=== PATIENT | male | born 1955 | race Caucasian/White ===

== ENCOUNTER 2021-03-03 20:11 | Inpatient (IN) | payer BC, MEDICARE ==
--- NOTE | 2021-03-03 20:54 | ED ---
General Adult HPI - General Chief complaint: Chest Pain Stated complaint: High Blood Pressure Time Seen by Provider: 03/03/21 20:26 Source: patient, RN notes reviewed, old records reviewed Mode of arrival: wheelchair Limitations: no limitations - History of Present Illness Initial comments: 66-year-old presenting from the primary care office with multiple ongoing issues. Patient has had chest pain difficulty breathing. Previously diagnosed with coronary artery disease and hypertension not currently taking any medications. He had not seen his primary care physician in about 5 years. Blood pressure was found to be significantly elevated. There was complaints of intermittent chest pain over the past one month as well as cough and dyspnea. Patient is a current smoker. Denies fever. Denies associated diaphoresis or vomiting. Reports intermittent bilateral lower extremity swelling. - Related Data Home Medications Medication Instructions Recorded Confirmed No Known Home Medications 03/03/21 03/03/21 Allergies Allergy/AdvReac Type Severity Reaction Status Date / Time codeine AdvReac anxiety Verified 03/03/21 20:41 Review of Systems ROS Statement: Those systems with pertinent positive or pertinent negative responses have been documented in the HPI. ROS Other: All systems not noted in ROS Statement are negative. Past Medical History Past Medical History: Coronary Artery Disease (CAD), COPD, Hypertension Additional Past Medical History / Comment(s): diverticulitis History of Any Multi-Drug Resistant Organisms: None Reported Past Surgical History: Bowel Resection Additional Past Surgical History / Comment(s): kidney stone removal, neck surgery, sinus surgery Past Anesthesia/Blood Transfusion Reactions: No Reported Reaction Past Psychological History: No Psychological Hx Reported Smoking Status: Current every day smoker Past Alcohol Use History: None Reported Past Drug Use History: None Reported General Exam Limitations: no limitations General appearance: alert, in no apparent distress Head exam: Present: atraumatic, normocephalic Eye exam: Present: normal appearance, PERRL ENT exam: Present: normal exam Neck exam: Present: normal inspection. Absent: tenderness, meningismus Respiratory exam: Present: wheezes, decreased breath sounds. Absent: respiratory distress Cardiovascular Exam: Present: regular rate, normal rhythm GI/Abdominal exam: Present: soft. Absent: distended, tenderness, guarding Extremities exam: Present: normal capillary refill, pedal edema Back exam: Present: normal inspection, full ROM Neurological exam: Present: alert, oriented X3, CN II-XII intact. Absent: motor sensory deficit Psychiatric exam: Present: normal affect, normal mood Skin exam: Present: warm, dry, intact. Absent: cyanosis, diaphoretic Course Vital Signs 03/03/21 03/03/21 03/03/21 20:13 20:57 22:15 Temperature 97.9 F Pulse Rate 101 H 81 Respiratory 20 16 Rate Blood Pressure 207/130 195/106 O2 Sat by Pulse 94 L 91 L 95 Oximetry EKG Findings - EKG Comments: EKG Findings:: EKG: Possible ectopic atrial rhythm rate of 97, OR interval 160, QRS duration 80 ST segment elevation, T-wave inversion in the lateral precordial leads. Medical Decision Making - Medical Decision Making 58-year-old male sent from primary care forchest pain, hypertension, elevated h eart rate. Patient is a current smoker, he is bronchospastic cough, wheezing, decreased air entry bilaterally. I do suspect a component of COPD. He has intermittent chest pain and is quite hypertensive upon arrival. Also he is tachycardic. He has a normal CBC, normal CMP, negative troponin. CT angiography shows emphysema with no pulmonary embolism. case discussed with Dr. Butler who will admit. Cardiology placed on consult. - Lab Data Result diagrams: 03/03/21 20:35 03/03/21 20:35 Lab Results 03/03/21 03/03/21 03/03/21 Range/Units 20:35 20:35 20:35 WBC 9.3 (3.8-10.6) k/uL RBC 5.57 (4.30-5.90) m/uL Hgb 17.3 (13.0-17.5) gm/dL Hct 50.8 (39.0-53.0) % MCV 91.2 (80.0-100.0) fL MCH 31.0 (25.0-35.0) pg MCHC 34.0 (31.0-37.0) g/dL RDW 12.5 (11.5-15.5) % Plt Count 179 (150-450) k/uL MPV 7.9 Neutrophils % 72 % Lymphocytes % 16 % Monocytes % 7 % Eosinophils % 2 % Basophils % 1 % Neutrophils # 6.7 (1.3-7.7) k/uL Lymphocytes # 1.5 (1.0-4.8) k/uL Monocytes # 0.7 (0-1.0) k/uL Eosinophils # 0.2 (0-0.7) k/uL Basophils # 0.1 (0-0.2) k/uL PT 10.2 (9.0-12.0) sec INR 0.9 (<1.2) APTT 25.2 (22.0-30.0) sec Sodium 142 (137-145) mmol/L Potassium 3.8 (3.5-5.1) mmol/L Chloride 100 (98-107) mmol/L Carbon Dioxide 32 H (22-30) mmol/L Anion Gap 10 mmol/L BUN 17 (9-20) mg/dL Creatinine 1.24 (0.66-1.25) mg/dL Est GFR (CKD-EPI)AfAm 69 (>60 ml/min/1.73 sqM) Est GFR (CKD-EPI)NonAf 60 (>60 ml/min/1.73 sqM) Glucose 130 H (74-99) mg/dL Calcium 9.8 (8.4-10.2) mg/dL Magnesium 1.7 (1.6-2.3) mg/dL Total Bilirubin 0.3 (0.2-1.3) mg/dL AST 18 (17-59) U/L ALT 15 (4-49) U/L Alkaline Phosphatase 77 (38-126) U/L Troponin I (0.000-0.034) ng/mL NT-Pro-B Natriuret Pep pg/mL Total Protein 7.1 (6.3-8.2) g/dL Albumin 4.3 (3.5-5.0) g/dL Lipase 134 (23-300) U/L 03/03/21 03/03/21 Range/Units 20:35 20:36 WBC (3.8-10.6) k/uL RBC (4.30-5.90) m/uL Hgb (13.0-17.5) gm/dL Hct (39.0-53.0) % MCV (80.0-100.0) fL MCH (25.0-35.0) pg MCHC (31.0-37.0) g/dL RDW (11.5-15.5) % Plt Count (150-450) k/uL MPV Neutrophils % % Lymphocytes % % Monocytes % % Eosinophils % % Basophils % % Neutrophils # (1.3-7.7) k/uL Lymphocytes # (1.0-4.8) k/uL Monocytes # (0-1.0) k/uL Eosinophils # (0-0.7) k/uL Basophils # (0-0.2) k/uL PT (9.0-12.0) sec INR (<1.2) APTT (22.0-30.0) sec Sodium (137-145) mmol/L Potassium (3.5-5.1) mmol/L Chloride (98-107) mmol/L Carbon Dioxide (22-30) mmol/L Anion Gap mmol/L BUN (9-20) mg/dL Creatinine (0.66-1.25) mg/dL Est GFR (CKD-EPI)AfAm (>60 ml/min/1.73 sqM) Est GFR (CKD-EPI)NonAf (>60 ml/min/1.73 sqM) Glucose (74-99) mg/dL Calcium (8.4-10.2) mg/dL Magnesium (1.6-2.3) mg/dL Total Bilirubin (0.2-1.3) mg/dL AST (17-59) U/L ALT (4-49) U/L Alkaline Phosphatase (38-126) U/L Troponin I <0.012 (0.000-0.034) ng/mL NT-Pro-B Natriuret Pep 397 pg/mL Total Protein (6.3-8.2) g/dL Albumin (3.5-5.0) g/dL Lipase (23-300) U/L Disposition Clinical Impression: Chest pain, Acute exacerbation of chronic obstructive airways disease, Hypertension Disposition: ADMITTED IP TO THIS HOSP Condition: Stable Is patient prescribed a controlled substance at d/c from ED?: No Referrals: Shayne Butts MD [Primary Care Provider] - 1-2 days Decision to Admit Reason: Admit from EC Decision Date: 03/03/21 Decision Time: 22:25
[2021-03-03 20:56] LABS: Basophils # (A) 0.1 k/uL (0-0.2); Basophils % (A) 1 %; Eosinophils # (A) 0.2 k/uL (0-0.7); Eosinophils % (A) 2 %; HCT 50.8 % (39.0-53.0); HGB 17.3 gm/dL (13.0-17.5); Lymphocytes # (A) 1.5 k/uL (1.0-4.8); Lymphocytes % (A) 16 %; MCV 91.2 fL (80.0-100.0); Mean Platelet Volume 7.9; Monocytes # (A) 0.7 k/uL (0-1.0); Monocytes % (A) 7 %; Neutrophils # (A) 6.7 k/uL (1.3-7.7); Neutrophils % (A) 72 %; Platelet Count 179 k/uL (150-450); RBC 5.57 m/uL (4.30-5.90); RDW 12.5 % (11.5-15.5); WBC 9.3 k/uL (3.8-10.6)
[2021-03-03 21:09] LABS: INR 0.9 (<1.2); Partial Thromboplastin Time 25.2 sec (22.0-30.0); Prothrombin Time 10.2 sec (9.0-12.0)
[2021-03-03 21:15] LABS: Albumin 4.3 g/dL (3.5-5.0); Calcium 9.8 mg/dL (8.4-10.2); Magnesium 1.7 mg/dL (1.6-2.3); Potassium 3.8 mmol/L (3.5-5.1); Total Bilirubin 0.3 mg/dL (0.2-1.3); Total Protein 7.1 g/dL (6.3-8.2)
[2021-03-03] MEDS ORDERED: ASPIRIN 325 MG TAB PO STA (22:03)
[2021-03-03] MEDS ORDERED: ACETAMINOPHEN TAB 325 MG TAB PO PRN (22:21)
[2021-03-03] MEDS ORDERED: NALOXONE 0.4 MG/ML 1 ML VIAL IV PRN (22:21)
--- NOTE | 2021-03-03 22:21 | CT ---
EXAMINATION TYPE: CT angio chest DATE OF EXAM: 03/03/2021 COMPARISON: HISTORY: Chest pain with difficulty breathing. CT DLP: 379.3 mGycm Automated exposure control for dose reduction was used. CONTRAST: Performed with IV Contrast, patient injected with 80 mL of Isovue 370. There are 3-D post processed images. The lungs are clear of infiltrate. There is no pleural effusion or pneumothorax. There are mild emphy sematous changes in the lungs. There is no pleural effusion. There is no pericardial effusion. Heart size is normal. There is no mediastinal adenopathy. There are no hilar masses. Thoracic aorta is atheromatous. There is no aneurysm or dissection. There is no evidence of filling defect in the pulmonary arteries. Ascen ding aorta measures 3.7 cm. There is some spurring in the thoracic spine. Sternum is intact. The ribs appear intact. IMPRESSION: No evidence of pulmonary embolism. There is pulmonary mild emphysema.
[2021-03-03] MEDS ORDERED: predniSONE 50 MG TAB PO STA (22:23)
[2021-03-03] MEDS ORDERED: IPRATROPIUM-ALBUTEROL 3 ML NEB INHALATION STA (22:24)
[2021-03-03] MEDS ORDERED: ALBUTEROL NEBULIZED 2.5 MG/3 ML INHALATION STA (22:24)
[2021-03-03] MEDS ORDERED: amLODIPine 5 MG TAB PO STA (22:24)
[2021-03-03] MEDS ORDERED: NICOTINE 21MG/24HR PATCH TRANSDERM STA (22:42)
[2021-03-04] MEDS ORDERED: cloNIDine HCL 0.2 MG TAB PO STA (00:08)
[2021-03-04] MEDS ORDERED: cloNIDine HCL 0.2 MG TAB PO PRN (00:40)
[2021-03-04] MEDS ORDERED: IPRATROPIUM-ALBUTEROL 3 ML NEB INHALATION PRN (00:40)
--- NOTE | 2021-03-04 01:48 | P.HPIM ---
History of Present Illness H&P Date: 03/03/21 Chief Complaint: Elevated blood pressure 66-year-old male with history of hypertension, COPD Patient has been lost to follow-up with his PCP for the past 6 years however recently over the past year or so he's been noticing exercise intolerance and what he described as anginal chest pain if he becomes active. He was he's been spending most of his time in bed laying down doing nothing. However he notes that his health been deteriorating he admits to smoking a lot but denies any alcohol drinking or drug abuse. He's been having some chest discomfort and noticed that she's been wheezing for which she decided to schedule doctor appointment for follow-up At his doctor's office today he was found to have elevated blood pressure he described anginal chest pain with activities and he was also found to be short of breath with wheezing for which his doctor recommended that he goes to the hospital for evaluation Currently patient laying comfortable in bed denies any nausea vomiting denies any headache denies any changes in his vision or hearing denies any focal neuro deficits. He denies any GI bleeding however he does report that 6 months ago he had one episode of GI bleeding. He also admits to history of diverticulitis status post partial colectomy he claims that he never had abnormal colonoscopy in the past suggestive of cancer. Patient reports some chest discomfort at this time rated as 2 out of 10 in severity. Initial workup in the ED CTA of the chest showed no acute PE, did show some emphysema. EKG no acute ST changes however was suspicious due to P-wave inversion in lead 1 and aVR and in lead V1 and V2, initial blood work overall unremarkable Review of Systems Pertinent positives as noted in HPI. All other systems were reviewed and are negative Past Medical History Past Medical History: Coronary Artery Disease (CAD), COPD, Hypertension Additional Past Medical History / Comment(s): diverticulitis History of Any Multi-Drug Resistant Organisms: None Reported Past Surgical History: Bowel Resection Additional Past Surgical History / Comment(s): kidney stone removal, neck surgery, sinus surgery Past Anesthesia/Blood Transfusion Reactions: No Reported Reaction Past Psychological History: No Psychological Hx Reported Smoking Status: Current every day smoker Past Alcohol Use History: None Reported Past Drug Use History: None Reported - Past Family History Family Family Medical History: No Reported History Medications and Allergies Home Medications Medication Instructions Recorded Confirmed Type No Known Home Medications 03/03/21 03/03/21 History Allergies Allergy/AdvReac Type Severity Reaction Status Date / Time codeine AdvReac anxiety Verified 03/03/21 20:41 Physical Exam Vitals: Vital Signs Temp Pulse Resp BP Pulse Ox 03/03/21 22:15 81 16 195/106 95 03/03/21 20:57 91 L 03/03/21 20:13 97.9 F 101 H 20 207/130 94 L Intake and Output 03/03/21 03/03/21 03/04/21 14:59 22:59 06:59 Other: Weight 83.007 kg Constitutional: No acute distress, conversant, pleasant Eyes: Anicteric sclerae, moist conjunctiva, Pupils equal round reactive to light ENMT: NC/AT Oropharynx clear, no erythema, or exudates Neck: Supple, FROM, no masses, or JVD No carotid bruits No thyromegaly Lungs: Prolonged expiratory phase with wheezing Clear to percussion Normal respiratory effort, no accessory muscle use Cardiovascular: Heart regular in rate and rhythm, No murmurs, gallops, or rubs No peripheral edema Abdominal: Soft Nontender, no guarding, rebound or rigidity Abdomen moving with respiration Normoactive bowel sounds No hepatomegaly, No splenomegaly No palpable mass No abdominal wall hernia noted Skin: Normal temperature, tone, texture, turgor No induration No subcutaneous nodules No rash, lesions No ulcers Extremities: No digital cyanosis No clubbing Pedal pulses intact and symmetrical Radial pulses intact and symmetrical No calf tenderness Psychiatric: Alert and oriented to person, place and time Appropriate affect fair judgement Neuro Muscles Strength 5/5 in all 4 extremities Sensation to light touch grossly present throughout Cranial nerves II-XII grossly intact No focal sensory deficits Lymphatics: no palpable cervical or supraclavicular , or inguinal lymph nodes Results CBC & Chem 7: 03/03/21 20:35 03/03/21 20:35 Labs: Abnormal Lab Results - Last 24 Hours (Table) 03/03/21 Range/Units 20:35 Carbon Dioxide 32 H (22-30) mmol/L Glucose 130 H (74-99) mg/dL Assessment and Plan Assessment: Hypertensive malignant Exertional dyspnea Atypical chest pain COPD with acute exacerbation secondary to smoking Tobacco smoking Plan Trend troponins CTA of the chest reviewed EKG reviewed Chest x-ray reviewed Blood work reviewed Trend troponins Cardiology consult Monitor vital signs Cardiac monitoring Aspirin, nitro Check lipid profile Check A1c Check TSH Check echocardiogram Age and started on Norvasc and hydrochlorothiazide Clonidine when necessary for systolic blood pressure more than 180 Goal blood pressure for the coming 24 hours is below 180 systolic DuoNeb's when necessary Symbicort twice a day Prednisone by mouth daily Nicotine replacement therapy CODE STATUS: Full code DVT prophylaxis: Heparin subcu 3 times a day Discussed with: Patient, ER, RN Anticipated length of stay more than [address]: Home A total of 70 minutes was spent on the care of this complex patient more than 50% of the time was spent in counseling and care coordination.
[2021-03-04] MEDS: SYMBICORT 160-4.5 MCG INHALER INHALATION SCH ×2 (08:41→20:02)
[2021-03-04 08:53] LABS: Basophils # (A) 0.05 X 10*3/uL (0.00-0.10); Basophils % (A) 0.5 %; Eosinophils # (A) 0.01 X 10*3/uL (0.04-0.35); Eosinophils % (A) 0.1 %; HCT 50.7 % (39.6-50.0); HGB 16.4 g/dL (13.0-17.0); Lymphocytes # (A) 0.76 X 10*3/uL (0.90-5.00); Lymphocytes % (A) 8.2 %; MCH 30.4 pg (27.0-32.0); MCHC 32.3 g/dL (32.0-37.0); MCV 93.9 fL (80.0-97.0); Mean Platelet Volume 10.4 fL (9.5-12.2); Monocytes # (A) 0.13 X 10*3/uL (0.20-1.00); Monocytes % (A) 1.4 %; Neutrophils # (A) 8.33 X 10*3/uL (1.80-7.70); Neutrophils % (A) 89.6 %; Platelet Count 196 X 10*3/uL (140-440); RDW 12.2 % (11.5-14.5)
[2021-03-04] MEDS ORDERED: hydroCHLOROthiazide 25 MG TAB PO SCH (09:00)
[2021-03-04] MEDS ORDERED: amLODIPine 5 MG TAB PO SCH (09:00)
[2021-03-04] MEDS ORDERED: NITROGLYCERIN SL TABS 0.4 MG TAB SUBLINGUAL PRN (09:01)
[2021-03-04] MEDS ORDERED: SODIUM CHLORIDE 0.9% 1,000 ML in EMPTY BAG 1 BAG IV ONE (09:01)
[2021-03-04] MEDS ORDERED: ATORVASTATIN 80 MG TAB PO STA (09:01)
[2021-03-04] MEDS ORDERED: ASPIRIN 325 MG TAB PO STA (09:01)
[2021-03-04] MEDS ORDERED: ALPRAZolam 0.25 MG TAB PO PRN (09:01)
[2021-03-04] MEDS ORDERED: ALPRAZolam 0.5 MG TAB PO PRN (09:01)
[2021-03-04] MEDS: predniSONE 50 MG TAB PO SCH (09:07)
[2021-03-04] MEDS: ASPIRIN 81 MG PO SCH (09:07)
[2021-03-04] MEDS: HEPARIN SODIUM,PORCINE/PF 5,000 UNIT/0.5 ML SYRINGE SQ SCH ×3 (09:10→23:36)
[2021-03-04] MEDS: lisinopriL 5 MG TAB PO SCH ×2 (09:18→20:28)
[2021-03-04 10:25] LABS: African American GFR (CKD) 71.6 (60.0-200.0); Albumin/Globulin Ratio 1.67 (1.60-3.17); Anion Gap 7.1 mmol/L (4.00-12.00); BUN/Creat Ratio 18.33 Ratio (12.00-20.00); Carbon Dioxide 26.9 mmol/L (21.6-31.8); Chol/HDL Ratio 3.97; Globulin 2.4 g/dL (1.6-3.3); LDL Cholesterol,Calculated 91.6 mg/dL (0.0-131.0); Non-African American GFR(CKD) 61.8 (60.0-200.0); Potassium 4.4 mmol/L (3.5-5.5); Total Bilirubin 0.2 mg/dL (0.2-1.2); Total Protein 6.4 g/dL (6.2-8.2); VLDL Calculation 21.4 mg/dL (5.00-40.00)
--- NOTE | 2021-03-04 11:00 | ECHOF ---
Referral Reason:CP/KRYSTA MEASUREMENTS -------- HEIGHT: 175.3 cm WEIGHT: 83.0 kg BP: IVSd: 1.4 cm (0.6 - 1.1) LVIDd: 3.4 cm (3.9 - 5.3) LVPWd: 1.4 cm (0.6 - 1.1) IVSs: 2.0 cm LVIDs: 1.7 cm LVPWs: 2.2 cm LAESV Index (A-L): 19.44 ml/m Ao Diam: 3.6 cm (2.0 - 3.7) AV Cusp: 2.0 cm (1.5 - 2.6) LA Diam: 2.5 cm (2.7 - 3.8) MV EXCURSION: 15.618 mm (> 18.000) MV EF SLOPE: 106 mm/s (70 - 150) EPSS: 1.6 cm MV E Baron: 0.50 m/s MV DecT: 163 ms MV A Baron: 0.99 m/s MV E/A Ratio: 0.51 AR PHT: 489 ms RAP: 5.00 mmHg RVSP: 10.41 mmHg FINDINGS -------- Sinus rhythm. This was a technically adequate study. The left ventricular size is normal. There is mild concentric left ventricular hypertrophy. Overa ll left ventricular systolic function is normal with, an EF between 55 - 60 %. The diastolic fillin g pattern is normal for the age of the patient 10.95. The right ventricle is normal in size. Normal LA size by volume 22+/-6 ml/m2. The right atrial size is normal. The aortic valve is trileaflet and appears structurally normal. Trace amount of aortic regurgitatio n. Mild mitral annular calcification present. Mild mitral regurgitation is present. The tricuspid valve appears structurally normal. Trace tricuspid regurgitation present. Right reinier tricular systolic pressure is normal at < 35 mmHg. There is no pulmonic regurgitation present. The aortic root size is normal. There is no pericardial effusion. CONCLUSIONS -------- 1. There is mild concentric left ventricular hypertrophy. 2. Overall left ventricular systolic function is normal with, an EF between 55 - 60 %. 3. Normal LA size by volume 22+/-6 ml/m2. 4. Trace amount of aortic regurgitation. 5. Mild mitral regurgitation is present. 6. Trace tricuspid regurgitation present. 7. There is no pericardial effusion. CHAIN REPAIRER: Venus Magana RDCS
[2021-03-04 11:40] LABS: Glucose,Whole Blood 130 mg/dL (75-99)
--- NOTE | 2021-03-04 11:54 | CONS ---
CONSULTATION Mr. Castellanos is a 66-year-old male who presented with symptoms of chest discomfort as well as progressive fatigue and dyspnea on exertion. According to the patient, he underwent cardiac catheterization about 10 years ago that was unremarkable. He has been having the discomfort at times with physical activity, but he has noted significant progression of his lack of energy and dyspnea with minimal physical activity. He denies any dizziness. He has a rapid heartbeat when he exerts himself. No peripheral edema. No PND or orthopnea. He has not been seen by Cardiology for a long time. He has a history of chronic tobacco use and has not been taking any medication at the time of admission. On presentation, he was noted to be hypertensive. REVIEW OF SYSTEMS: RESPIRATORY SYSTEM: He has dyspnea on exertion. He has cough. No recent fever. GI SYSTEM: No recent GI bleeding. No peptic ulcer disease. SYSTEM: No dysuria or hematuria. NERVOUS SYSTEM: No history of stroke or seizure. PHYSICAL EXAMINATION: GENERAL: He is a 66-year-old male, alert, oriented, in no apparent distress. VITAL SIGNS: Blood pressure running in the 200-150 after treatment with a heart rate in 90s. HEAD: Normocephalic. Eyes sclerae anicteric. NECK: Good carotid upstroke, no bruits. LUNGS: With decreased air exchange with scattered wheezes. HEART: Regular rate and rhythm S1, S2. No S3 with systolic murmur at the base. No diastolic murmur. No rub. ABDOMEN: Soft and nontender. Positive bowel sounds. No organomegaly. EXTREMITIES: No edema. Intact distal pulses. LAB DATA: Lab data revealed hemoglobin of 16.4, BUN and creatinine of 17 and 1.24. Troponin less than 0.012. NT proBNP of 397. EKG revealed ectopic atrial rhythm with nonspecific ST-T wave changes. Chest CT angiogram shows no evidence of pulmonary embolism with evidence of emphysema. IMPRESSION: 1. Symptoms of exertional chest discomfort and progressive dyspnea on exertion. Rule out angina pectoris in a patient with multiple coronary risk factors. 2. Chronic tobacco use. Patient smokes a pack and a half at least a day with evidence consistent with chronic obstructive lung disease. 3. Progressive fatigue could be related to a cardiac etiology or could be lung etiology. 4. Hypertension not treated in the past. RECOMMENDATION: From the cardiac standpoint, I would recommend to obtain echocardiogram with Doppler. I will recommend to proceed with coronary angiography to assess his status and guide his treatment. The rationale behind the procedures, risks and the complications were discussed with the patient who is in full understanding and agreement. Thank you for this consult. We will follow with you. SARTHAK / EMMAN: [id number] /
[2021-03-04] MEDS ORDERED: amLODIPine 5 MG TAB PO STA (11:55)
[2021-03-04] MEDS ORDERED: HEPARIN SODIUM,PORCINE 30 ML 30 ML ONE (12:12)
[2021-03-04] MEDS ORDERED: VERAPAMIL 2.5 MG/ML 2 ML AMP ONE (12:12)
[2021-03-04] MEDS ORDERED: LIDOCAINE 1% INJ 10MG/ML (20 ML MDV) ONE (12:12)
[2021-03-04] MEDS ORDERED: HEPARIN SODIUM 1,000 UN/ML (10ML VL) ONE (12:12)
[2021-03-04] MEDS ORDERED: fentaNYL (PF) 50 MCG/ML 2 ML AMP ONE (12:12)
[2021-03-04] MEDS ORDERED: IV FLUID CONTINUATION 1,000 ML IV ONE (12:18)
[2021-03-04] MEDS ORDERED: fentaNYL (PF) 50 MCG/ML 2 ML AMP IV ONE (12:35)
[2021-03-04] MEDS ORDERED: LIDOCAINE 1% INJ 10MG/ML (20 ML MDV) SQ ONE (12:37)
[2021-03-04] MEDS ORDERED: VERAPAMIL SYRINGE (5 MG/10 ML) INTRAARTER ONE (12:38)
[2021-03-04] MEDS ORDERED: MIDAZOLAM 2 MG/2 ML VIAL IV ONE (12:39)
[2021-03-04] MEDS ORDERED: IOPAMIDOL-370 125ML BTL INJ ONE (12:50)
[2021-03-04] MEDS ORDERED: RX INFO: IV CONTRAST WAS GIVEN 1 EACH MISC MISCELLANE PRN (12:56)
[2021-03-04] MEDS ORDERED: SODIUM CHLORIDE 0.9% 1,000 ML IV SCH (13:00)
--- NOTE | 2021-03-04 16:33 | P.PN ---
<Pedro Rodriguez - Last Filed: 03/04/21 16:13> Subjective Progress Note Date: 03/04/21 Hospital course: Patient is a 66-year-old male with a past medical history of hypertension and COPD with a long-standing history of and current use of tobacco products reportedly smoking nearly 2 packs daily for the past 50 years. He presented to the emergency department with hypertensive urgency after being evaluated at his PCPs office for experiencing increasing shortness of breath and exercise intolerance with mild chest pain. Upon arrival to facility patient was found to be significantly hypertensive and hypertensive urgency with blood pressure of 207/130. Patient does report history of hypertension and has not been taking any medications. EKG completed showing sinus rhythm at 97 bpm with T-wave inversion in leads I and aVL. CT PE completed negative for pulmonary embolism revealing mild pulmonary emphysema. Echocardiogram showing a normal ejection fraction of 55-60% with no significant valvular abnormalities. Cardiac cath completed showing no significant coronary artery disease. CBC, BMP, and liver profile unremarkable. Troponins trended and negative 3. Hemoglobin A1c 6.0. Lipid profile showing no significant abnormalities with the exception of a low HDL of 38.0. Patient is admitted under our services with consultation to cardiology and pulmonology for continued close medical management. Physical exam: General: non toxic, no distress, appears at stated age Derm: warm, dry Head: atraumatic, normocephalic, symmetric Eyes: EOMI, no lid lag, anicteric sclera Mouth: no lip lesion, mucus membranes moist Cardiovascular: S1S2 reg, no murmur, positive posterior tibial pulse bilateral, Lungs: Lungs tight throughout with diffuse expiratory wheezes bilaterally. Respirations shallow however even, regular, and unlabored. Patient requiring 3 L O2 status post cardiac cath to maintain SpO2 of 91% at this time. Abdominal: soft, nontender to palpation, no guarding, no appreciable organomegaly Ext: no gross muscle atrophy, no edema, no contractures Neuro: CN II-XI grossly intact, no focal neuro deficits Psych: Alert, oriented, appropriate affect Plan of care: Hypertensive urgency, improving -Monitor vital signs closely. -Norvasc increased to 10 mg daily and patient started on lisinopril 5 mg twice daily. -Cardiology following. Acute COPD exacerbation -CT PE completed negative for pulmonary embolism revealing mild pulmonary emphysema -Patient requiring oxygen supplementation at this time to maintain SpO2 greater than 90%. Currently on 3 L O2 with SpO2 of 91%. Wean oxyge as patient tolerates. -Pulmonology consulted. -Prednisone 50 mg daily. -Incentive spirometry -DuoNebs scheduled as well as on an as needed basis for shortness of breath and/or wheezing. -Nicotine patch and encourage and educate patient on the importance of smoking cessation and risks of continued use. Chest pain -EKG completed showing sinus rhythm at 97 bpm with T-wave inversion in leads I and aVL -Troponins trended and negative 3. -Cardiology following, cardiac cath negative for significant coronary artery disease. Nicotine dependence -Encourage and educate patient on the benefits of smoking cessation and the risks of continued use up to and including . -Nicotine patch. CODE STATUS: Full code DVT prophylaxis: Heparin Discussed with: Patient and RN Anticipated discharge date: Clinical course to determine Anticipated discharge place: Home A total of 45 minutes was spent on the care of this complex patient more than 50% of the time was spent in counseling and care coordination. Objective - Vital Signs Vital signs: Vital Signs Temp 98.2 F 03/04/21 11:49 Pulse 90 03/04/21 13:57 Resp 18 03/04/21 13:57 BP 134/84 03/04/21 13:57 Pulse Ox 94 L 03/04/21 13:57 Intake & Output 03/03/21 03/04/21 03/04/21 18:59 06:59 18:59 Intake Total 250 Output Total 200 Balance 50 Weight 83.007 kg Intake: IV 200 Intake, IV Titration 50 Amount Sodium Chloride 0.9% 1, 50 000 ml @ 75 mls/hr IV . [id number] [facility] Rx#:[id number] Output: Urine 200 Other: Voiding Method Toilet # Voids 1 - Labs CBC & Chem 7: 03/04/21 04:16 03/04/21 04:16 Labs: Abnormal Lab Results - Last 24 Hours (Table) 03/03/21 03/04/21 03/04/21 Range/Units 20:35 04:16 04:16 Hct 50.7 H (39.6-50.0) % Neutrophils # 8.33 H (1.80-7.70) X 10*3/uL Lymphocytes # 0.76 L (0.90-5.00) X 10*3/uL Monocytes # 0.13 L (0.20-1.00) X 10*3/uL Eosinophils # 0.01 L (0.04-0.35) X 10*3/uL Carbon Dioxide 32 H (22-30) mmol/L Glucose 130 H 173 H (74-99) mg/dL POC Glucose (mg/dL) (75-99) mg/dL HDL Cholesterol 38.0 L (40.0-60.0) mg/dL 03/04/21 Range/Units 11:37 Hct (39.6-50.0) % Neutrophils # (1.80-7.70) X 10*3/uL Lymphocytes # (0.90-5.00) X 10*3/uL Monocytes # (0.20-1.00) X 10*3/uL Eosinophils # (0.04-0.35) X 10*3/uL Carbon Dioxide (22-30) mmol/L Glucose (74-99) mg/dL POC Glucose (mg/dL) 130 H (75-99) mg/dL HDL Cholesterol (40.0-60.0) mg/dL <Sangita Hargrove - Last Filed: 03/04/21 17:11> Objective - Vital Signs Vital signs: Vital Signs Temp 98.2 F 03/04/21 11:49 Pulse 95 03/04/21 16:36 Resp 16 03/04/21 16:36 BP 153/87 03/04/21 16:36 Pulse Ox 93 L 03/04/21 16:36 Intake & Output 03/03/21 03/04/21 03/04/21 18:59 06:59 18:59 Intake Total 250 Output Total 200 Balance 50 Weight 83.007 kg Intake: IV 200 Intake, IV Titration 50 Amount Sodium Chloride 0.9% 1, 50 000 ml @ 75 mls/hr IV . [id number] Rx#:[id number] Output: Urine 200 Other: Voiding Method Toilet # Voids 1 - Labs CBC & Chem 7: 03/04/21 04:16 03/04/21 04:16 Labs: Abnormal Lab Results - Last 24 Hours (Table) 03/03/21 03/04/21 03/04/21 Range/Units 20:35 04:16 04:16 Hct 50.7 H (39.6-50.0) % Neutrophils # 8.33 H (1.80-7.70) X 10*3/uL Lymphocytes # 0.76 L (0.90-5.00) X 10*3/uL Monocytes # 0.13 L (0.20-1.00) X 10*3/uL Eosinophils # 0.01 L (0.04-0.35) X 10*3/uL Carbon Dioxide 32 H (22-30) mmol/L Glucose 130 H 173 H (74-99) mg/dL POC Glucose (mg/dL) (75-99) mg/dL HDL Cholesterol 38.0 L (40.0-60.0) mg/dL 03/04/21 Range/Units 11:37 Hct (39.6-50.0) % Neutrophils # (1.80-7.70) X 10*3/uL Lymphocytes # (0.90-5.00) X 10*3/uL Monocytes # (0.20-1.00) X 10*3/uL Eosinophils # (0.04-0.35) X 10*3/uL Carbon Dioxide (22-30) mmol/L Glucose (74-99) mg/dL POC Glucose (mg/dL) 130 H (75-99) mg/dL HDL Cholesterol (40.0-60.0) mg/dL Assessment and Plan Assessment: Pedro Rodriguez NP rendered care for this patient independently, reviewed the findings and plan as documented in the note above. I did not physically speak with or examine the patient on this date.
[2021-03-04] MEDS: IPRATROPIUM-ALBUTEROL 3 ML NEB INHALATION SCH (20:06)
--- NOTE | 2021-03-04 20:56 | CC ---
CARDIAC CATHETERIZATION REPORT HISTORY: Mr. Castellanos is a 66-year-old male with a history of chronic tobacco use, history of hypertension, noncompliance who presented with symptoms of progressive chest discomfort and severe dyspnea. He had no evidence of acute ST-segment changes or enzymatic changes. Because of his symptoms and his presentation, recommendation was made regarding cardiac catheterization. The procedure as well as the risks and complications were discussed with the patient who is in full understanding and agreement. PROCEDURE: Patient was brought to the labor conciliator in a fasting semisedated state after receiving fentanyl and Benadryl and achieving moderate conscious sedated state. Using Xylocaine anesthesia and Seldinger technique, a 6-Mauritian sheath was introduced in the right radial artery. Selective right and left coronary angiography performed using 5-Mauritian 3.5 bend, right and left Kameron catheter. Multiple views of the coronary artery including hemiaxial views were obtained. Following that, 5-Mauritian tight pigtail catheter was introduced into the left ventricle and pressures were calculated. Following that, catheter and sheath were removed. Hemostasis was obtained with deployment of a TR band. There was no immediate complication. Patient is returned to his room in stable condition. Of note, the patient received a total of 4500 units of intravenous heparin as well as intra-arterial verapamil. FINDINGS: FLUOROSCOPY: There was calcification involving the coronary arteries. LEFT MAIN: This is a short size vessel, bifurcating into left circumflex, left anterior descending artery, left main coronary artery has no evidence of high-grade stenosis. LEFT ANTERIOR DESCENDING ARTERY: This is a large-sized vessel reaching to the apex with a wraparound apex segment giving rise to 3 diagonal branch. The left anterior descending coronary artery as well as branches have no evidence of obstructive coronary artery disease. LEFT CIRCUMFLEX: This is a nondominant large size vessel giving rise to 2 large obtuse marginal branches. Prior to the takeoff of the second obtuse marginal branch, there is 30 to 40% plaque. The rest of the vessel has no high-grade stenosis. RIGHT CORONARY ARTERY: This is a dominant vessel, tortuous, bifurcating into PDA and posterolateral segment and branches. The right coronary artery in the proximal segment has a 30 to 40% plaque, eccentric. The rest of the vessel has no evidence of high-grade stenosis. The PLV has a 50% plaque. LEFT VENTRICULOGRAM: Left ventriculogram was not performed. HEMODYNAMICS: There was no gradient across the aortic valve. The left ventricular end-diastolic pressure was 10-12 mmHg. CONCLUSION: 1. Calcified coronary arteries. 2. Mild disease in the left circumflex and the right coronary artery. RECOMMENDATION: In view of findings and anatomy, I recommend continued medical therapy with aggressive coronary risk modifications that have been initiated including smoking cessation. Those findings and recommendation were discussed with the patient and his family and they are in full understanding and agreement. Duration of sedation is 14 minutes. MMSUMAYA / EMMAN: [id number] /
[2021-03-05] MEDS: IPRATROPIUM-ALBUTEROL 3 ML NEB INHALATION SCH ×7 (01:31→23:30)
[2021-03-05 06:14] LABS: African American GFR (CKD) 50 (>60 ml/min/1.73 sqM); Anion Gap 7 mmol/L; Blood Urea Nitrogen 35 mg/dL (9-20); Calcium 9.2 mg/dL (8.4-10.2); Carbon Dioxide 30 mmol/L (22-30); Chloride 102 mmol/L (98-107); Glucose 125 mg/dL (74-99); Non-African American GFR(CKD) 43 (>60 ml/min/1.73 sqM); Potassium 4.3 mmol/L (3.5-5.1); Sodium 139 mmol/L (137-145)
[2021-03-05] MEDS ORDERED: HEPARIN SODIUM,PORCINE 10,000 UNIT in SODIUM CHLORIDE 0.9% 1,000 ML IRRIGATION PRN (07:00)
[2021-03-05] MEDS ORDERED: HEPARIN SODIUM,PORCINE 2,500 UNIT in SODIUM CHLORIDE 0.9% 250 ML IRRIGATION PRN (07:00)
[2021-03-05] MEDS: SYMBICORT 160-4.5 MCG INHALER INHALATION SCH ×2 (07:25→19:02)
--- NOTE | 2021-03-05 08:41 | P.PN ---
Subjective Progress Note Date: 03/05/21 Hospital course: Patient is a 66-year-old male with a past medical history of hypertension and COPD with a long-standing history of and current use of tobacco products reportedly smoking nearly 2 packs daily for the past 50 years. He presented to the emergency department with hypertensive urgency after being evaluated at his PCPs office for experiencing increasing shortness of breath and exercise intolerance with mild chest pain. Upon arrival to facility patient was found to be significantly hypertensive and hypertensive urgency with blood pressure of 207/130. Patient does report history of hypertension and has not been taking any medications. EKG completed showing sinus rhythm at 97 bpm with T-wave inversion in leads I and aVL. CT PE completed negative for pulmonary embolism revealing mild pulmonary emphysema. Echocardiogram showing a normal ejection fraction of 55-60% with no significant valvular abnormalities. Cardiac cath completed showing no significant coronary artery disease. CBC, BMP, and liver profile unremarkable. Troponins trended and negative 3. Hemoglobin A1c 6.0. Lipid profile showing no significant abnormalities with the exception of a low HDL of 38.0. Patient is admitted under our services with consultation to card iology and pulmonology for continued close medical management. Physical exam: Patient seen and fully evaluated at the bedside this morning. He continues to have significant wheezing and requiring 3 L O2 via nasal cannula to maintain SPO2 > 92% currently 93%. When oxygen removed in attempts to wean patient 88% on room air. Patient continues to report mild shortness of breath worse with exertion, he denies having any headache, lightheadedness, dizziness, cough or congestion, chest pain, palpitations, abdominal pain, nausea, vomiting, or experiencing any numbness/tingling/weakness/swelling in his extremities. General: non toxic, no distress, appears at stated age Derm: warm, dry Head: atraumatic, normocephalic, symmetric Eyes: EOMI, no lid lag, anicteric sclera Mouth: no lip lesion, mucus membranes moist Cardiovascular: S1S2 reg, no murmur, positive posterior tibial pulse bilateral, Lungs: Lungs tight throughout with diffuse expiratory wheezes bilaterally. Respirations shallow however even, regular, and unlabored. Patient requiring 3 L O2 status post cardiac cath to maintain SpO2 of 93% at this time. Abdominal: soft, nontender to palpation, no guarding, no appreciable organomegaly Ext: no gross muscle atrophy, no edema, no contractures Neuro: CN II-XI grossly intact, no focal neuro deficits Psych: Alert, oriented, appropriate affect Plan of care: Hypertensive urgency, improving -Monitor vital signs closely. -Norvasc was increased to 10 mg daily and cardiology also started pt on lisinopril 5 mg twice daily and carvedilol 6.25 mg twice daily. -Cardiology following. Acute COPD exacerbation -CT PE completed negative for pulmonary embolism revealing mild pulmonary emphysema -Patient requiring oxygen supplementation at this time to maintain SpO2 greater than 90%. Currently on 3 L O2 with SpO2 of 93%. Wean oxygen as patient tolerates. -Pulmonology consulted, appreciate further recommendations -Prednisone 50 mg daily. -Symbicort 2 puffs twice daily -Incentive spirometry -DuoNebs scheduled as well as on an as needed basis for shortness of breath and/or wheezing. -Nicotine patch and encourage and educate patient on the importance of smoking cessation and risks of continued use. Chest pain -EKG completed showing sinus rhythm at 97 bpm with T-wave inversion in leads I and aVL -Troponins trended and negative 3. -Cardiac cath completed revealing calcified coronary arteries with mild disease in the left circumflex and right coronary artery with no evidence of high-grade stenosis or obstructive CAD. -Cardiology following, recommending aggressive coronary risk modifications including smoking cessation. Nicotine dependence -Encourage and educate patient on the benefits of smoking cessation and the risks of continued use up to and including . -Nicotine patch. CODE STATUS: Full code DVT prophylaxis: Heparin Discussed with: Patient and RN Anticipated discharge date: Clinical course to determine Anticipated discharge place: Home A total of 45 minutes was spent on the care of this complex patient more than 50% of the time was spent in counseling and care coordination. Objective - Vital Signs Vital signs: Vital Signs Temp 97.4 F L 03/05/21 07:00 Pulse 88 03/05/21 07:35 Resp 18 03/05/21 07:00 BP 172/89 03/05/21 07:00 Pulse Ox 95 03/05/21 07:00 Intake & Output 03/04/21 03/05/21 03/05/21 18:59 06:59 18:59 Intake Total 250 Output Total 200 Balance 50 Intake: IV 200 Intake, IV Titration 50 Amount Sodium Chloride 0.9% 1, 50 000 ml @ 75 mls/hr IV . [id number] [facility] Rx#:[id number] Output: Urine 200 Other: Voiding Method Toilet # Voids 2 - Labs CBC & Chem 7: 03/04/21 04:16 03/05/21 05:10 Labs: Abnormal Lab Results - Last 24 Hours (Table) 03/04/21 03/04/21 03/04/21 Range/Units 04:16 04:16 11:37 Hct 50.7 H (39.6-50.0) % Neutrophils # 8.33 H (1.80-7.70) X 10*3/uL Lymphocytes # 0.76 L (0.90-5.00) X 10*3/uL Monocytes # 0.13 L (0.20-1.00) X 10*3/uL Eosinophils # 0.01 L (0.04-0.35) X 10*3/uL BUN (9-20) mg/dL Creatinine (0.66-1.25) mg/dL Glucose 173 H (70-110) mg/dL POC Glucose (mg/dL) 130 H (75-99) mg/dL HDL Cholesterol 38.0 L (40.0-60.0) mg/dL 03/05/21 Range/Units 05:10 Hct (39.6-50.0) % Neutrophils # (1.80-7.70) X 10*3/uL Lymphocytes # (0.90-5.00) X 10*3/uL Monocytes # (0.20-1.00) X 10*3/uL Eosinophils # (0.04-0.35) X 10*3/uL BUN 35 H (9-20) mg/dL Creatinine 1.62 H (0.66-1.25) mg/dL Glucose 125 H (70-110) mg/dL POC Glucose (mg/dL) (75-99) mg/dL HDL Cholesterol (40.0-60.0) mg/dL
[2021-03-05] MEDS: ATORVASTATIN 40 MG TAB PO SCH (08:55)
[2021-03-05] MEDS: HEPARIN SODIUM,PORCINE/PF 5,000 UNIT/0.5 ML SYRINGE SQ SCH ×2 (08:55→16:03)
[2021-03-05] MEDS: amLODIPine 10 MG TAB PO SCH (08:55)
[2021-03-05] MEDS: ASPIRIN 81 MG PO SCH (08:56)
[2021-03-05] MEDS: predniSONE 50 MG TAB PO SCH (08:56)
[2021-03-05] MEDS: lisinopriL 5 MG TAB PO SCH (08:56)
--- NOTE | 2021-03-05 09:00 | PN ---
PROGRESS NOTE Mr. Castellanos is a 66-year-old male who presented with symptoms of chest discomfort and progressive dyspnea on exertion. He underwent cardiac catheterization, revealed mild obstructive disease. He is feeling better today. He continued to have some dyspnea. No chest pain. No dizziness. No palpitation. He continues to be on aspirin once a day, amlodipine 10 mg daily, Lipitor 40 mg daily, hydrochlorothiazide 25 mg daily, lisinopril 5 mg twice a day. PHYSICAL EXAMINATION: VITAL SIGNS: Blood pressure running in the 130s to 150s with a heart rate in the 90s. LUNGS: With scattered wheezes. HEART: Regular rhythm S1, S2. No S3. No rub. ABDOMEN: Soft, nontender. Right radial pulse intact. EXTREMITIES: No edema. LAB DATA: Lab data revealed BUN and creatinine up to 36 and 1.62. Potassium 4.3. IMPRESSION: 1. Symptoms of chest discomfort with no evidence of significant obstructive coronary artery disease. 2. Hypertension. 3. Chronic tobacco use. 4. Abnormal renal function tests could be a combination of his medical regimen and the dye load. RECOMMENDATION: I will cut back the dose of her lisinopril. I will add beta blockers regimen. Continue rest of his medical regimen and depending on his progress further recommendations will be made. MMODL / IJN: [id number] /
[2021-03-05] MEDS: carvediloL 6.25 MG TAB PO SCH ×2 (09:02→18:18)
[2021-03-05] MEDS ORDERED: SODIUM CHLORIDE 0.9% 1,000 ML IV ONE (11:13)
[2021-03-05 11:55] LABS: Glucose,Whole Blood 175 mg/dL (75-99)
--- NOTE | 2021-03-05 16:03 | P.CNPUL ---
History of Present Illness Consult date: 03/05/21 Requesting physician: Isaac Khan Reason for consult: COPD Chief complaint: Shortness of breath, chest pain History of present illness: This is a very pleasant 66-year-old male patient would not been seen by primary care provider possibly 5 years. He has a history of coronary artery disease, hypertension, diverticulitis with bowel resection, nephrolithiasis, chronic obstructive pulmonary disease. He has a 50+ year pack per day smoking history. He presented to the emergency room on 03/03/2021 with complaints of shortness of breath, chest pain, generalized weakness. CT angiogram ruled out pulmonary embolism. There was some mild emphysema. Echocardiogram revealed mild LVH. Preserved left ventricular systolic function with ejection fraction 55-60%. He did undergo cardiac catheterization yesterday that revealed calcified coronary arteries. Mild disease in the left circumflex and the right coronary artery. Medical therapy recommended. We're consulted regarding his suspected COPD. He is seen today on the regular medical floor. He is awake and alert in no acute distress. Resting flat in bed. He states he is breathing a bit easier today compared to yesterday. He is maintaining O2 saturations in the 90s on 3 L/m per nasal cannula. Afebrile. Hemodynamically stable. Room air oxygenation with exercise 88%. White count 9.3. Hemoglobin 16.4. Sodium 139. Potassium 4.3. Creatinine 1.62. Glucose 125. Harris virus not detected. He is currently on DuoNeb inhalations, Symbicort, prednisone. Review of Systems REVIEW OF SYSTEMS: CONSTITUTIONAL: Denies any recent significant weight loss or weight gain. EYES: Denies change in vision. EARS, NOSE, MOUTH, THROAT: Denies headaches, denies sore throat. CARDIOVASCULAR: Positive for chest pain, no palpitations or syncopal episodes. RESPIRATORY: Positive for shortness of breath, cough, congestion no hemoptysis. GASTROINTESTINAL: Denies change in appetite, denies abdominal pain GENITOURINARY: Denies hematuria, denies infections. MUSKULOSKELETAL: Denies pain, denies swelling. INTEGUMENTARY: Denies rash, denies eczema. NEUROLOGICAL: Denies recent memory loss, no recent seizure activity. PSYCHIATRIC: Denies anxiety, denies depression. HEMATOLOGIC/LYMPHATIC: Denies anemia, denies enlarged lymph nodes. Past Medical History Past Medical History: Coronary Artery Disease (CAD), COPD, Hypertension Additional Past Medical History / Comment(s): diverticulitis History of Any Multi-Drug Resistant Organisms: None Reported Past Surgical History: Bowel Resection Additional Past Surgical History / Comment(s): kidney stone removal, neck surgery, sinus surgery Past Anesthesia/Blood Transfusion Reactions: No Reported Reaction Past Psychological History: No Psychological Hx Reported Smoking Status: Current every day smoker Past Alcohol Use History: None Reported Past Drug Use History: None Reported - Past Family History Family Family Medical History: No Reported History Medications and Allergies Home Medications Medication Instructions Recorded Confirmed Type No Known Home Medications 03/03/21 03/03/21 History Allergies Allergy/AdvReac Type Severity Reaction Status Date / Time codeine AdvReac anxiety Verified 03/03/21 20:41 Physical Exam Vitals: Vital Signs Temp Pulse Pulse Pulse Resp BP BP 03/05/21 15:42 88 03/05/21 15:32 84 03/05/21 15:00 98.3 F 79 18 142/77 03/05/21 11:24 88 03/05/21 11:17 03/05/21 11:16 03/05/21 11:12 88 03/05/21 10:57 03/05/21 10:54 03/05/21 08:51 97.6 F 81 93 22 154/83 03/05/21 08:00 20 03/05/21 07:35 88 03/05/21 07:25 84 03/05/21 07:00 97.4 F L 94 18 172/89 03/05/21 04:33 89 19 03/05/21 04:23 86 18 03/05/21 01:53 97.8 F 95 18 151/96 03/04/21 19:43 97.7 F 103 H 18 160/90 03/04/21 16:36 95 16 153/87 03/04/21 16:06 83 16 152/85 Pulse Ox Pulse Ox Pulse Ox Pulse Ox 03/05/21 15:42 03/05/21 15:32 03/05/21 15:00 95 03/05/21 11:24 03/05/21 11:17 93 L 91 L 88 L 03/05/21 11:16 93 L 03/05/21 11:12 03/05/21 10:57 88 L 03/05/21 10:54 93 L 03/05/21 08:51 03/05/21 08:00 03/05/21 07:35 03/05/21 07:25 03/05/21 07:00 95 03/05/21 04:33 03/05/21 04:23 03/05/21 01:53 96 03/04/21 19:43 92 L 03/04/21 16:36 93 L 03/04/21 16:06 92 L Intake and Output 03/05/21 03/05/21 03/05/21 06:59 14:59 22:59 Other: # Voids 2 1 GENERAL EXAM: Alert, pleasant 58-year-old gentleman, on 3 L nasal canula, comfortable in no apparent distress. HEAD: Normocephalic. EYES: Normal reaction of pupils, equal size. NOSE: Clear with pink turbinates. THROAT: No erythema or exudates. NECK: No masses, no JVD. CHEST: No chest wall deformity. LUNGS: Equal air entry with bilateral end expiratory wheeze, diminished. CVS: S1 and S2 normal with no audible murmur, regular rhythm. ABDOMEN: No hepatosplenomegaly, normal bowel sounds, no guarding or rigidity. SPINE: No scoliosis or deformity SKIN: No rashes CENTRAL NERVOUS SYSTEM: No focal deficits, tone is normal in all 4 extremities. EXTREMITIES: There is no peripheral edema. No clubbing, no cyanosis. Peripheral pulses are intact. Results - Laboratory Findings CBC and BMP: 03/04/21 04:16 03/05/21 05:10 PT/INR, D-dimer PT 10.2 sec (9.0-12.0) 03/03/21 20:35 INR 0.9 (<1.2) 03/03/21 20:35 Abnormal lab findings: Abnormal Labs 03/03/21 03/04/21 03/04/21 20:35 04:16 04:16 Hct 50.7 H Neutrophils # 8.33 H Lymphocytes # 0.76 L Monocytes # 0.13 L Eosinophils # 0.01 L Carbon Dioxide 32 H BUN Creatinine Glucose 130 H 173 H POC Glucose (mg/dL) HDL Cholesterol 38.0 L 03/04/21 03/05/21 03/05/21 11:37 05:10 11:53 Hct Neutrophils # Lymphocytes # Monocytes # Eosinophils # Carbon Dioxide BUN 35 H Creatinine 1.62 H Glucose 125 H POC Glucose (mg/dL) 130 H 175 H HDL Cholesterol - Diagnostic Findings CT scan - chest: image reviewed Assessment and Plan Assessment: 1 Atypical chest pain in a patient found to have mild coronary artery disease involving the left circumflex and right coronary arteries. 2 Acute hypoxic respiratory failure secondary to suspected acute exacerbation of COPD, pulmonary embolism ruled out 3 Chronic and ongoing tobacco dependence of greater than 50 years 4 Acute kidney injury possibly IV contrast related 5 Hypertension 6 Hyperlipidemia 7 History of diverticulitis with previous bowel resection 8 History of nephrolithiasis Plan: The patient was seen and evaluated by Dr. Pate CT angiogram reviewed Treat for suspected COPD exacerbation Continue steroids, Symbicort, DuoNeb inhalations Educated regarding the importance of complete smoking cessation Add NicoDerm patch Would benefit from an outpatient workup including full pulmonary function testing to evaluate the severity of his COPD We will continue to follow and make further recommendations based on his clinical status I, the cosigning physician, performed a history & physical examination of the patient. Lungs sounds with bilateral end expiratory wheeze, diminished. Maintaining good O2 saturations in the 90s on 3 L/m per nasal. I discussed the assessment and plan of care with my nurse practitioner, Tamia Mccormick. I attest to the above consultation as dictated by her. Time with Patient: Greater than 30
[2021-03-05 17:45] LABS: Glucose,Whole Blood 299 mg/dL (75-99)
[2021-03-05 20:16] LABS: Glucose,Whole Blood 287 mg/dL (75-99)
[2021-03-06] MEDS: HEPARIN SODIUM,PORCINE/PF 5,000 UNIT/0.5 ML SYRINGE SQ SCH ×2 (00:37→08:48)
[2021-03-06] MEDS: IPRATROPIUM-ALBUTEROL 3 ML NEB INHALATION SCH ×3 (03:12→10:52)
[2021-03-06 05:05] LABS: African American GFR (CKD) 71 (>60 ml/min/1.73 sqM); Anion Gap 6 mmol/L; Blood Urea Nitrogen 30 mg/dL (9-20); Calcium 9.1 mg/dL (8.4-10.2); Carbon Dioxide 31 mmol/L (22-30); Chloride 100 mmol/L (98-107); Glucose 175 mg/dL (74-99); Non-African American GFR(CKD) 61 (>60 ml/min/1.73 sqM); Potassium 4.3 mmol/L (3.5-5.1); Sodium 137 mmol/L (137-145)
[2021-03-06] MEDS: SYMBICORT 160-4.5 MCG INHALER INHALATION SCH (07:37)
[2021-03-06 07:39] LABS: Glucose,Whole Blood 114 mg/dL (75-99)
[2021-03-06] MEDS: predniSONE 50 MG TAB PO SCH (08:48)
[2021-03-06] MEDS: ATORVASTATIN 40 MG TAB PO SCH (08:48)
[2021-03-06] MEDS: lisinopriL 5 MG TAB PO SCH (08:48)
[2021-03-06] MEDS: carvediloL 6.25 MG TAB PO SCH (08:48)
[2021-03-06] MEDS: ASPIRIN 81 MG PO SCH (08:48)
[2021-03-06] MEDS: amLODIPine 10 MG TAB PO SCH (08:48)
[2021-03-06 10:17] VITALS: BP 159/96; RESP 16; TEMP 98.3
[2021-03-06 11:02] VITALS: PULSE 77
--- NOTE | 2021-03-06 11:32 | P.PN ---
Subjective Progress Note Date: 03/06/21 This is a very pleasant 66-year-old male patient would not been seen by primary care provider possibly 5 years. He has a history of coronary artery disease, hypertension, diverticulitis with bowel resection, nephrolithiasis, chronic obstructive pulmonary disease. He has a 50+ year pack per day smoking history. He presented to the emergency room on 03/03/2021 with complaints of shortness of breath, chest pain, generalized weakness. CT angiogram ruled out pulmonary embolism. There was some mild emphysema. Echocardiogram revealed mild LVH. Preserved left ventricular systolic function with ejection fraction 55-60%. He did undergo cardiac catheterization yesterday that revealed calcified coronary arteries. Mild disease in the left circumflex and the right coronary artery. Medical therapy recommended. We're consulted regarding his suspected COPD. He is seen today on the regular medical floor. He is awake and alert in no acute distress. Resting flat in bed. He states he is breathing a bit easier today compared to yesterday. He is maintaining O2 saturations in the 90s on 3 L/m per nasal cannula. Afebrile. Hemodynamically stable. Room air oxygenation with exercise 88%. White count 9.3. Hemoglobin 16.4. Sodium 139. Potassium 4.3. Creatinine 1.62. Glucose 125. Harris virus not detected. He is currently on DuoNeb inhalations, Symbicort, prednisone. The patient is seen today 03/06/2021 in follow-up on the regular medical floor. He is currently sitting up at the bedside. Awake and alert in no acute distress. Breathing easier today compared to yesterday. He is still requiring 3 L nasal cannula to maintain O2 saturations in the 90s. Sodium 137. Potassium 4.3. Creatinine 1.21. Glucose 175. He is continued on DuoNeb inhalations, Symbicort, prednisone. Objective - Vital Signs Vital signs: Vital Signs Temp 98.3 F 03/06/21 07:00 Pulse 77 03/06/21 11:01 Resp 16 03/06/21 08:00 BP 159/96 03/06/21 07:00 Pulse Ox 96 03/06/21 07:00 Intake & Output 03/05/21 03/06/21 03/06/21 18:59 06:59 18:59 Output Total 200 Balance -200 Output: Urine 200 Other: Voiding Method Toilet Toilet # Voids 1 3 3 - Exam GENERAL EXAM: Alert, pleasant 66-year-old gentleman, on 3 L nasal cannula, comfortable in no apparent distress. HEAD: Normocephalic. EYES: Normal reaction of pupils, equal size. NOSE: Clear with pink turbinates. THROAT: No erythema or exudates. NECK: No masses, no JVD. CHEST: No chest wall deformity. LUNGS: Equal air entry with faint end expiratory wheeze, diminished. CVS: S1 and S2 normal with no audible murmur, regular rhythm. ABDOMEN: No hepatosplenomegaly, normal bowel sounds, no guarding or rigidity. SPINE: No scoliosis or deformity SKIN: No rashes CENTRAL NERVOUS SYSTEM: No focal deficits, tone is normal in all 4 extremities. EXTREMITIES: There is no peripheral edema. No clubbing, no cyanosis. Peripheral pulses are intact. - Labs CBC & Chem 7: 03/04/21 04:16 03/06/21 04:05 Labs: Abnormal Lab Results - Last 24 Hours (Table) 03/05/21 03/05/21 03/05/21 Range/Units 11:53 17:43 20:15 Carbon Dioxide (22-30) mmol/L BUN (9-20) mg/dL Glucose (74-99) mg/dL POC Glucose (mg/dL) 175 H 299 H 287 H (75-99) mg/dL 03/06/21 03/06/21 Range/Units 04:05 07:34 Carbon Dioxide 31 H (22-30) mmol/L BUN 30 H (9-20) mg/dL Glucose 175 H (74-99) mg/dL POC Glucose (mg/dL) 114 H (75-99) mg/dL Assessment and Plan Assessment: 1 Atypical chest pain in a patient found to have mild coronary artery disease involving the left circumflex and right coronary arteries. 2 Acute hypoxic respiratory failure secondary to suspected acute exacerbation of COPD, pulmonary embolism ruled out 3 Chronic and ongoing tobacco dependence of greater than 50 years 4 Acute kidney injury possibly IV contrast related 5 Hypertension 6 Hyperlipidemia 7 History of diverticulitis with previous bowel resection 8 History of nephrolithiasis Plan: The patient was seen and evaluated by Dr. Pate Cleared for discharge from the pulmonary standpoint To continue DuoNeb inhalations, Symbicort, prednisone taper Again educated regarding the importance of complete smoking cessation Follow-up in our office in 1-2 weeks' time I, the cosigning physician, performed a history & physical examination of the patient. Lungs sounds with bilateral end expiratory wheeze, diminished. Maintaining good O2 saturations in the 90s on 3 L/m per nasal. I discussed the assessment and plan of care with my nurse practitioner, Tamia Mccormick. I attest to the above note as dictated by her.
--- NOTE | 2021-03-06 11:38 | P.DS ---
Providers Date of admission: 03/04/21 20:58 Expected date of discharge: 03/06/21 Attending physician: Isaac Khan MD Consults: 03/03/21 22:22 Consult Physician Routine Consulting Provider: Echo Ozuna Consult Reason/Comments: cp Do you want consulting provider notified?: Yes 03/04/21 16:15 Consult Physician Routine Consulting Provider: Svetlana Pate Consult Reason/Comments: COPD exacerbation Do you want consulting provider notified?: Yes Primary care physician: Shayne Tavarez [facility] Course: Discharge Diagnosis: Hypertensive urgency, improved Acute COPD exacerbation Atypical Chest pain, ACS ruled out Nicotine dependence. Hospital Course: Patient is a 66-year-old male with a past medical history of hypertension and COPD with a long-standing history of and current use of tobacco products reportedly smoking nearly 2 packs daily for the past 50 years. He presented to the emergency department with hypertensive urgency after being evaluated at his PCPs office for experiencing increasing shortness of breath and exercise intolerance with mild chest pain. Upon arrival to facility patient was found to be significantly hypertensive and hypertensive urgency with blood pressure of 207/130. Patient does report history of hypertension and has not been taking any medications. EKG completed showing sinus rhythm at 97 bpm with T-wave inversion in leads I and aVL. CT PE completed negative for pulmonary embolism revealing mild pulmonary emphysema. Echocardiogram showing a normal ejection fraction of 55-60% with no significant valvular abnormalities. Cardiac cath completed showing no significant coronary artery disease. CBC, BMP, and liver profile unremarkable. Troponins trended and negative 3. Hemoglobin A1c 6.0. Lipid profile showing no significant abnormalities with the exception of a low HDL of 38.0. Patient is admitted under our services with consultation to cardiology and pulmonology for continued close medical management. Patient treated for COPD exacerbation, hypertensive urgency, and atypical chest pain. He was placed on supplemental oxygen, steroids, Symbicort, and scheduled DuoNeb treatments. Patient required multiple antihypertensive to provide optimal control of her blood pressure. Patient being discharged home on home oxygen secondary to advanced COPD with baseline oxygenation 88% requiring 3 L O2 supplementation to maintain SpO2 equal to or greater than 90%. He was instructed of the high importance it is to abstain from smoking as continued use of tobacco products may result in significant deterioration of health up to and including . Patient also being discharged home with multiple new medications including DuoNeb's, Flovent, and prednisone taper for his COPD along with carvedilol 6.25 mg twice daily with meals, lisinopril 5 mg each morning, and amlodipine 10 mg each morning for his hypertension. Patient to follow-up with his PCP in 1-2 days as well as cardiology and pulmonology in one week. Supplemental oxygen delivered by heart medical equipment. Physical exam: Patient seen and fully evaluated at the bedside this morning. Patient no longer having an increased respiratory effort as his work of breathing has improved over the past 48 hours. He is still requiring 3L O2 via nasal cannula to maintain SPO2 > 92%. Patient reports he feels he is ready to go home and would rather continue care at home. Patient has a nebulizer machine at home and was given thorough discharge instructions regarding care. Patient continues to report mild shortness of breath but now only with exertion and no longer at rest and he denies having any headache, lightheadedness, dizziness, cough or congestion, chest pain, palpitations, abdominal pain, nausea, vomiting, or experiencing any numbness/tingling/weakness/swelling in his extremities. General: non toxic, no distress, appears at stated age Derm: warm, dry Head: atraumatic, normocephalic, symmetric Eyes: EOMI, no lid lag, anicteric sclera Mouth: no lip lesion, mucus membranes moist Cardiovascular: S1S2 reg, no murmur, positive posterior tibial pulse bilateral, Lungs: Lungs tight throughout with diffuse expiratory wheezes bilaterally. Respirations even, regular, and unlabored. Patient requiring 3 L O2 to maintain SpO2 of 93% at this time. Abdominal: soft, nontender to palpation, no guarding, no appreciable organomegaly Ext: no gross muscle atrophy, no edema, no contractures Neuro: CN II-XI grossly intact, no focal neuro deficits Psych: Alert, oriented, appropriate affect A total of 45 minutes of time were spent preparing this complex discharge summary. Patient Condition at Discharge: Stable Plan - Discharge Summary Discharge Rx Participant: No New Discharge Prescriptions: New Aspirin 81 mg PO DAILY 30 Days #30 chew carvediloL [Coreg] 6.25 mg PO BID-W/MEALS 30 Days #60 tab Ipratropium-Albuterol Nebulize [Duoneb 0.5 mg-3 mg/3 ml Soln] 3 ml INHALATION RT-Q2H PRN 30 Days #1 box PRN Reason: Shortness Of Breath Or Wheezing Atorvastatin [Lipitor] 40 mg PO DAILY 30 Days #30 tab methylPREDNISolone Dose Pack [Medrol Dose Pack] 4 mg PO DIRECTED #21 package amLODIPine [Norvasc] 10 mg PO DAILY 30 Days #30 tab Fluticasone Propionate 220 Mcg [Flovent 220 Mcg Inhaler (Mhu)] 2 puff INHALATION RT-BID #1 inhaler lisinopriL [Zestril] 5 mg PO DAILY 30 Days #30 tab Discharge Medication List Aspirin 81 mg PO DAILY 30 Days #30 chew 03/06/21 [Rx] Atorvastatin [Lipitor] 40 mg PO DAILY 30 Days #30 tab 03/06/21 [Rx] Fluticasone Propionate 220 Mcg [Flovent 220 Mcg Inhaler (Mhu)] 2 puff INHALATION RT-BID #1 inhaler 03/06/21 [Rx] Ipratropium-Albuterol Nebulize [Duoneb 0.5 mg-3 mg/3 ml Soln] 3 ml INHALATION RT-Q2H PRN 30 Days #1 box 03/06/21 [Rx] amLODIPine [Norvasc] 10 mg PO DAILY 30 Days #30 tab 03/06/21 [Rx] carvediloL [Coreg] 6.25 mg PO BID-W/MEALS 30 Days #60 tab 03/06/21 [Rx] lisinopriL [Zestril] 5 mg PO DAILY 30 Days #30 tab 03/06/21 [Rx] methylPREDNISolone Dose Pack [Medrol Dose Pack] 4 mg PO DIRECTED #21 package 03/06/21 [Rx] Follow up Appointment(s)/Referral(s): Echo Ozuna MD [STAFF PHYSICIAN] - 1 Week [facility] [NON-STAFF] - As Needed (Supplier of home oxygen) Shayne Butts MD [Primary Care Provider] - 1-2 days Svetlana Pate MD [STAFF PHYSICIAN] - 1 Week Patient Instructions/Handouts: How to Stop Smoking (DC), Using Oxygen at Home (DC), COPD (Chronic Obstructive Pulmonary Disease) (DC) Activity/Diet/Wound Care/Special Instructions: Activity: As tolerated Diet: Heart healthy diet Special Instructions: You are being discharged home on oxygen with duoneb nebulizer treatments, Flovent inhaler, and a prednisone taper. It is important to wear your oxygen at all times until further instructions are given by your grain cleaner and transfer operator-Dr. Pate for further pulmonary function testing. As discussed it is very important to stop smoking. Continued smoking may lead to worsening health condition up to and including . Thank you for allowing us to participate in your care, it was a pleasure having you for a patient. Discharge Disposition: HOME SELF-CARE
--- NOTE | 2021-03-06 16:17 | P.PN ---
Subjective Progress Note Date: 03/06/21 This is a 66-year-old gentleman with history of smoking was admitted to the hospital with complaints of chest pain and shortness of breath. Patient had a cardiac catheterization and was found to have mild coronary artery disease. Patient also developed some acute renal insufficiency. However, his creatinine has improved. He is feeling better. He still has expiratory wheezes. Patient is being seen by pulmonary for his COPD. From Cardec standpoint patient seemed to be stable. His puncture site seemed to be healing well. He'll continue current medical therapy. Patient could be discharged. Follow-up with Dr. Ozuna as an outpatient Objective - Vital Signs Vital signs: Vital Signs Temp 98.3 F 03/06/21 07:00 Pulse 77 03/06/21 11:01 Resp 16 03/06/21 08:00 BP 159/96 03/06/21 07:00 Pulse Ox 96 03/06/21 07:00 Intake & Output 03/05/21 03/06/21 03/06/21 18:59 06:59 18:59 Output Total 200 Balance -200 Output: Urine 200 Other: Voiding Method Toilet Toilet # Voids 1 3 3 - Exam GENERAL EXAM: Patient is alert and oriented and doesn't appear to be in any acute distress HEENT: Normocephalic. Normal reaction of pupils, equal size, normal range of extraocular motion. No erythema or exudates in the throat. NECK: No masses, no nuchal rigidity. CHEST: No chest wall deformity. LUNGS: Expiratory wheezes HEART: S1 and S2 normal with no audible mumurs or gallops. Regular rhythm, femorals equal on both sides.. ABDOMEN: No hepatosplenomegaly, normal bowel sounds, no guarding or rigidity. SKIN: No rashes CENTRAL NERVOUS SYSTEM: No focal deficits. EXTREMITIES: No cyanosis, clubbing or edema. - Labs CBC & Chem 7: 03/04/21 04:16 03/06/21 04:05 Labs: Abnormal Lab Results - Last 24 Hours (Table) 03/05/21 03/05/21 03/06/21 Range/Units 17:43 20:15 04:05 Carbon Dioxide 31 H (22-30) mmol/L BUN 30 H (9-20) mg/dL Glucose 175 H (74-99) mg/dL POC Glucose (mg/dL) 299 H 287 H (75-99) mg/dL 03/06/21 Range/Units 07:34 Carbon Dioxide (22-30) mmol/L BUN (9-20) mg/dL Glucose (74-99) mg/dL POC Glucose (mg/dL) 114 H (75-99) mg/dL Assessment and Plan (1) Mild CAD Status: Acute Code(s): I25.10 - ATHSCL HEART DISEASE OF [place] CORONARY ARTERY W/O ANG PCTRS SNOMED Code(s): 881291658 (2) Acute exacerbation of chronic obstructive airways disease Status: Acute Code(s): J44.1 - CHRONIC OBSTRUCTIVE PULMONARY DISEASE W (ACUTE) EXACERBATION SNOMED Code(s): 680340613 (3) Chest pain Status: Acute Code(s): R07.9 - CHEST PAIN, UNSPECIFIED SNOMED Code(s): 72008458 (4) Hypertension Status: Acute Code(s): I10 - ESSENTIAL (PRIMARY) HYPERTENSION SNOMED Code(s): 77890603 Plan: From cardiac standpoint, Patient is stable. Patient could be discharged
== END 2021-03-06 12:30 | disposition home or self-care (01) | DRG 286 ==
LOC: EC 20:11 → 6NMEDSUR 22:41 → OBSVTOIN 03-04 20:58
PROVIDERS: ADMIT Internal Medicine; ATTEND Internal Medicine
PROC: B2111ZZ Fluoroscopy of Multiple Coronary Arteries using Low Osmolar Contrast (ICD-10-PCS; principal; 2021-03-04 07:30)
PROC: 4A023N7 Measurement of Cardiac Sampling and Pressure, Left Heart, Percutaneous Approach (ICD-10-PCS; principal; 2021-03-04 07:30)
DX: I16.0 Hypertensive urgency (principal); J96.01 Acute respiratory failure with hypoxia; N17.9 Acute kidney failure, unspecified; I10 Essential (primary) hypertension; J43.9 Emphysema, unspecified; I25.119 Atherosclerotic heart disease of native coronary artery with unspecified angina pectoris; E78.5 Hyperlipidemia, unspecified; F17.210 Nicotine dependence, cigarettes, uncomplicated; Z87.442 Personal history of urinary calculi; Z79.899 Other long term (current) drug therapy; Z90.49 Acquired absence of other specified parts of digestive tract; Z20.822 Contact with and (suspected) exposure to COVID-19; Z88.5 Allergy status to narcotic agent
CPT/HCPCS: 36415; 71275; 80048; 80053; 80061; 83036; 83690; 83735; 83880; 84443; 84484; 85025; 85610; 85730; 87635; 93005; 93306; 93458; 94640; 94760; 99285

== ENCOUNTER 2025-01-17 20:18 | Inpatient (IN) | payer MEDICARE ==
--- NOTE | 2025-01-17 20:38 | ED ---
SOB HPI - General Chief Complaint: Shortness of Breath Stated Complaint: KRYSTA Time Seen by Provider: 01/17/25 20:29 Source: patient, EMS, RN notes reviewed, old records reviewed Mode of arrival: EMS Limitations: no limitations - History of Present Illness Initial Comments: This is a 70-year-old male to ER for evaluation of shortness of breath history of COPD not on home breathing treatments who is not on home O2 presents with persistent cough congestion and shortness of breath with no fevers no chest pain, patient has a near syncopal event and has not been feeling well for the past week MD Complaint: shortness of breath, cough -: week(s) Severity: moderate Severity scale (1-10): 6 Consistency: constant Improves With: nothing Known History Of: COPD, asthma Context: recent URI, anxiety, other (Near syncope) Associated Symptoms: cough, sputum production Treatments Prior to Arrival: none - Related Data Home Medications Medication Instructions Recorded Confirmed Albuterol Nebulized [Ventolin 3 ml INHALATION RT-TID PRN 01/18/25 01/18/25 Nebulized] Atorvastatin [Lipitor] 40 mg PO HS 01/18/25 01/18/25 Tamsulosin [Flomax] 0.4 mg PO DAILY 01/18/25 01/18/25 Previous Rx's Medication Instructions Recorded Ipratropium-Albuterol Nebulize 3 ml INHALATION RT-Q2H PRN 30 Days 03/06/21 [Duoneb 0.5 mg-3 mg/3 ml Soln] #1 box amLODIPine [Norvasc] 10 mg PO DAILY 30 Days #30 tab 03/06/21 Acetaminophen Tab [Tylenol] 650 mg PO Q4HR PRN tab 01/19/25 Albuterol Inhaler [Ventolin Hfa 1 - 2 puff INHALATION Q4H PRN #1 01/19/25 Inhaler] each Budesonide-Formot 160-4.5 Mcg 2 puff INHALATION RT-BID #1 each 01/19/25 [Symbicort 160-4.5 Mcg Inhaler] Albuterol Nebulized [Ventolin 2.5 mg INHALATION Q6H 6 Days #75 ml 01/24/25 Nebulized] Hydrocortisone [Cortef] 5 mg PO HS #90 tab 01/24/25 Hydrocortisone [Cortef] 10 mg PO DAILY #60 tab 01/24/25 Losartan [Cozaar] 100 mg PO DAILY #90 tab 01/24/25 carvediloL [Coreg] 25 mg PO BID 30 Days #60 tablet 01/24/25 Allergies Allergy/AdvReac Type Severity Reaction Status Date / Time codeine AdvReac anxiety Verified 01/18/25 09:39 Review of Systems ROS Statement: Those systems with pertinent positive or pertinent negative responses have been documented in the HPI. ROS Other: All systems not noted in ROS Statement are negative. Past Medical History Past Medical History: Coronary Artery Disease (CAD), COPD, Hypertension Additional Past Medical History / Comment(s): diverticulitis History of Any Multi-Drug Resistant Organisms: None Reported Past Surgical History: Bowel Resection Additional Past Surgical History / Comment(s): kidney stone removal, neck surgery, sinus surgery Past Anesthesia/Blood Transfusion Reactions: No Reported Reaction Past Psychological History: No Psychological Hx Reported Smoking Status: Current every day smoker Past Alcohol Use History: None Reported Past Drug Use History: None Reported - Past Family History Family Family Medical History: No Reported History General Exam Limitations: no limitations General appearance: alert, in no apparent distress Head exam: Present: atraumatic, normocephalic, normal inspection Eye exam: Present: normal appearance, PERRL, EOMI. Absent: scleral icterus, conjunctival injection, periorbital swelling ENT exam: Present: normal exam, mucous membranes moist Neck exam: Present: normal inspection. Absent: tenderness, meningismus, lymphadenopathy Respiratory exam: Present: respiratory distress, wheezes, accessory muscle use, decreased breath sounds, prolonged expiratory. Absent: rales, rhonchi, stridor Cardiovascular Exam: Present: regular rate, normal rhythm, normal heart sounds. Absent: systolic murmur, diastolic murmur, rubs, gallop, clicks GI/Abdominal exam: Present: soft, normal bowel sounds. Absent: distended, tend erness, guarding, rebound, rigid Extremities exam: Present: normal inspection, full ROM, normal capillary refill. Absent: tenderness, pedal edema, joint swelling, calf tenderness Back exam: Present: normal inspection Neurological exam: Present: alert, oriented X3, CN II-XII intact Psychiatric exam: Present: normal affect, normal mood Skin exam: Present: warm, dry, intact, normal color. Absent: rash Course Vital Signs 01/17/25 01/17/25 01/17/25 20:19 21:21 21:34 Temperature 97.8 F Pulse Rate 72 78 73 Pulse Rate [ Right Sitting Pulse Oximetery ] Pulse Rate [ Right Standing Pulse Oximetery ] Pulse Rate [ Right Supine Pulse Oximetery ] Respiratory 19 Rate Blood Pressure 194/110 Blood Pressure [Left Arm Sitting] Blood Pressure [Left Arm Standing] Blood Pressure [Left Arm Supine] O2 Sat by Pulse 94 L Oximetry 01/17/25 01/17/25 01/17/25 21:51 23:08 23:26 Temperature Pulse Rate 78 76 82 Pulse Rate [ Right Sitting Pulse Oximetery ] Pulse Rate [ Right Standing Pulse Oximetery ] Pulse Rate [ Right Supine Pulse Oximetery ] Respiratory 18 Rate Blood Pressure 174/101 Blood Pressure [Left Arm Sitting] Blood Pressure [Left Arm Standing] Blood Pressure [Left Arm Supine] O2 Sat by Pulse 98 Oximetry 01/18/25 01/18/25 01/18/25 00:08 03:46 08:10 Temperature Pulse Rate 85 79 83 Pulse Rate [ Right Sitting Pulse Oximetery ] Pulse Rate [ Right Standing Pulse Oximetery ] Pulse Rate [ Right Supine Pulse Oximetery ] Respiratory 17 16 Rate Blood Pressure 153/98 132/86 Blood Pressure [Left Arm Sitting] Blood Pressure [Left Arm Standing] Blood Pressure [Left Arm Supine] O2 Sat by Pulse 91 L 93 L Oximetry 01/18/25 01/18/25 01/18/25 08:24 09:46 10:53 Temperature Pulse Rate 80 99 Pulse Rate [ 110 H Right Sitting Pulse Oximetery ] Pulse Rate [ 112 H Right Standing Pulse Oximetery ] Pulse Rate [ 89 Right Supine Pulse Oximetery ] Respiratory 17 Rate Blood Pressure 144/80 Blood Pressure 150/100 [Left Arm Sitting] Blood Pressure 151/95 [Left Arm Standing] Blood Pressure 146/83 [Left Arm Supine] O2 Sat by Pulse 96 Oximetry 01/18/25 01/18/25 11:35 11:43 Temperature Pulse Rate 96 96 Pulse Rate [ Right Sitting Pulse Oximetery ] Pulse Rate [ Right Standing Pulse Oximetery ] Pulse Rate [ Right Supine Pulse Oximetery ] Respiratory Rate Blood Pressure Blood Pressure [Left Arm Sitting] Blood Pressure [Left Arm Standing] Blood Pressure [Left Arm Supine] O2 Sat by Pulse Oximetry - Reevaluation(s) Reevaluation #1: 01/17/25 21:32 Medical records reviewed Reevaluation #2: 01/17/25 21:56 Patient has noted improvement with breathing treatments here in the ER still wheezing and short of breath Reevaluation #3: 01/17/25 21:56 Patient informed of results and questions answered Reevaluation #4: Was pt. sent in by a medical professional or institution (LUZMA Gaviria, [employer], urgent care, hospital, or custodial...) When possible be specific @ -no Did you speak to anyone other than the patient for history (EMS, parent, family, police, friend...)? What history was obtained from this source @ -no Did you review nursing and triage notes (agree or disagree)? Why? @ -agree Are old charts reviewed (outside hosp., previous admission, EMS record, old EKG, old radiological studies, urgent care reports/EKG's, custodial records)? Report findings @ -yes Differential Diagnosis (chest pain, altered mental status, abdominal pain women, abdominal pain men, vaginal bleeding, weakness, fever, dyspnea, syncope, headache, dizziness, GI bleed, back pain, seizure, CVA, palpatations, mental health, musculoskeletal)? @ -prior EKG interpreted by me (3pts min.). @ -yes X-rays interpreted by me (1pt min.). @ -yes negative for acute disease CT interpreted by me (1pt min.). @ - yes negative for acute disease U/S interpreted by me (1pt. min.). @ -no What testing was considered but not performed or refused? (CT, X-rays, U/S, labs)? Why? @ -none What meds were considered but not given or refused? Why? @ -none Did you discuss the management of the patient with other professionals (professionals i.e. LUZMA Gaviria, [employer]IST, lab, RT, psych nurse, social service director, shaper set up operator, teacher, safety security officer, disability case manager)? Give summary @ -no Was smoking cessation discussed for >3mins.? @ -no Was critical care preformed (if so, how long)? @ -yes31 Were there social determinants of health that impacted care today? How? (Homelessness, low income, unemployed, alcoholism, drug addiction, transportation, low edu. Level, literacy, decrease access to med. care, alf, rehab)? @ -none Was there de-escalation of care discussed even if they declined (Discuss DNR or withdrawal of care, Hospice)? DNR status @ -no What co-morbidities impacted this encounter? (DM, HTN, Smoking, COPD, CAD, Cancer, CVA, ARF, Chemo, Hep., AIDS, mental health diagnosis, sleep apnea, morbid obesity)? @ -none Was patient admitted / discharged? Hospital course, mention meds given and route, prescriptions, significant lab abnormalities, going to OR and other pert inent info. @ - 70 male with syncopal event severe shortness of breath without any significant chest pain here with history of CAD concern for PE possible, patient will be admitted for breathing treatments, monitoring of pulse ox and syncopal coughs, possible arrhythmia Admitted Undiagnosed new problem with uncertain prognosis? @ -no Drug Therapy requiring intensive monitoring for toxicity (Heparin, Nitro, Insulin, Cardizem)? @ -no Were any procedures done? @ -no Diagnosis/symptom? @ -Syncope with persistent shortness of breath and hypoxia Acute, or Chronic, or Acute on Chronic? @ -Acute Uncomplicated (without systemic symptoms) or Complicated (systemic symptoms)? @ -Complicated Side effects of treatment? @ -no Exacerbation, Progression, or Severe Exacerbation? @ -exacerbation Poses a threat to life or bodily function? How? (Chest pain, [place], [place], pneumonia, PE, COPD, DKA, ARF, appy, cholecystitis, CVA, Diverticulitis, Homicidal, Suicidal, threat to staff... and all critical care pts) @ -yes with cause of syncope Reevaluation #5: Differential Dyspnea: Coronary syndrome, arrhythmia, tamponade, asthma, COPD, pulmonary embolism, pneumonia, pneumothorax, pulmonary effusion, anaphylaxis, diabetic ketoacidosis, flailed chest, pulmonary contusion, diaphragmatic rupture, anemia, neuromuscular, this is not meant to be an all-inclusive list. Differential Syncope: Valvular disease, hypertrophic cardiomyopathy, pulmonary embolism, tamponade, tachycardia, bradycardia, [place], hypovolemia, hemorrhage, dissection, anemia, intracranial hemorrhage, seizure, hypoglycemia, carbon monoxide poisoning, this is not meant to be an all-inclusive list. - Consultations Consultation #1: Spoke with sound who agrees to admit this patient Medical Decision Making - Medical Decision Making 70 male with syncopal event severe shortness of breath without any significant chest pain here with history of CAD concern for PE possible, patient will be admitted for breathing treatments, monitoring of pulse ox and syncopal coughs, possible arrhythmia - Lab Data Result diagrams: 01/19/25 05:38 01/19/25 05:38 Lab Results 01/17/25 01/17/25 01/17/25 Range/Units 20:59 20:59 20:59 WBC 8.57 (4.50-10.00) 10*3/uL RBC 4.49 (4.40-5.60) 10*6/uL Hgb 14.1 (13.0-17.0) g/dL Hct 42.0 (39.6-50.0) % MCV 93.5 (80.0-97.0) fL MCH 31.4 (27.0-32.0) pg MCHC 33.6 (32.0-37.0) g/dL Plt Count 217 (140-440) 10*3/uL MPV 9.9 (9.5-12.2) fL Immature Gran % (Auto) 0.2 % Neutrophils % 76.2 % Lymphocytes % 12.3 % Monocytes % 9.2 % Eosinophils % 1.3 % Basophils % 0.8 % Immature Gran # 0.02 (0.00-0.04) 10*3/uL Neutrophils # 6.53 (1.80-7.70) 10*3/uL Lymphocytes # 1.05 (0.90-5.00) 10*3/uL Monocytes # 0.79 (0.20-1.00) 10*3/uL Eosinophils # 0.11 (0.04-0.35) 10*3/uL Basophils # 0.07 (0.00-0.10) 10*3/uL PT 10.7 (10.0-12.5) sec INR 1.0 (<1.2) APTT 19.1 L (22.0-30.0) sec D-Dimer (<0.60) mg/L FEU Sodium 137 (137-145) mmol/L Potassium 5.0 (3.5-5.1) mmol/L Chloride 100 (98-107) mmol/L Carbon Dioxide 33 H (22-30) mmol/L Anion Gap 4 mmol/L BUN 16 (9-20) mg/dL Creatinine 1.03 (0.66-1.25) mg/dL Est GFR (CKD-EPI)AfAm 84 (>60 ml/min/1.73 sqM) Est GFR (CKD-EPI)NonAf 73 (>60 ml/min/1.73 sqM) Glucose 124 H (74-99) mg/dL Estimated Ave Glu mg/dL mg/dL Hemoglobin A1c (<=6.0) % Calcium 9.5 (8.4-10.2) mg/dL Magnesium 1.8 (1.6-2.3) mg/dL Total Bilirubin 0.9 (0.2-1.3) mg/dL AST 25 (17-59) U/L ALT 10 (4-49) U/L Alkaline Phosphatase 51 (38-126) U/L Troponin I (0.000-0.034) ng/mL NT-Pro-B Natriuret Pep 203 pg/mL Total Protein 7.0 (6.3-8.2) g/dL Albumin 3.9 (3.5-5.0) g/dL 01/17/25 01/17/25 01/17/25 Range/Units 20:59 20:59 20:59 WBC (4.50-10.00) 10*3/uL RBC (4.40-5.60) 10*6/uL Hgb (13.0-17.0) g/dL Hct (39.6-50.0) % MCV (80.0-97.0) fL MCH (27.0-32.0) pg MCHC (32.0-37.0) g/dL Plt Count (140-440) 10*3/uL MPV (9.5-12.2) fL Immature Gran % (Auto) % Neutrophils % % Lymphocytes % % Monocytes % % Eosinophils % % Basophils % % Immature Gran # (0.00-0.04) 10*3/uL Neutrophils # (1.80-7.70) 10*3/uL Lymphocytes # (0.90-5.00) 10*3/uL Monocytes # (0.20-1.00) 10*3/uL Eosinophils # (0.04-0.35) 10*3/uL Basophils # (0.00-0.10) 10*3/uL PT (10.0-12.5) sec INR (<1.2) APTT (22.0-30.0) sec D-Dimer 0.94 H (<0.60) mg/L FEU Sodium (137-145) mmol/L Potassium (3.5-5.1) mmol/L Chloride (98-107) mmol/L Carbon Dioxide (22-30) mmol/L Anion Gap mmol/L BUN (9-20) mg/dL Creatinine (0.66-1.25) mg/dL Est GFR (CKD-EPI)AfAm (>60 ml/min/1.73 sqM) Est GFR (CKD-EPI)NonAf (>60 ml/min/1.73 sqM) Glucose (74-99) mg/dL Estimated Ave Glu mg/dL 108 mg/dL Hemoglobin A1c 5.4 (<=6.0) % Calcium (8.4-10.2) mg/dL Magnesium (1.6-2.3) mg/dL Total Bilirubin (0.2-1.3) mg/dL AST (17-59) U/L ALT (4-49) U/L Alkaline Phosphatase (38-126) U/L Troponin I <0.012 (0.000-0.034) ng/mL NT-Pro-B Natriuret Pep pg/mL Total Protein (6.3-8.2) g/dL Albumin (3.5-5.0) g/dL - EKG Data -: EKG Interpreted by Me (EKG is sinus 71 ME 165 QRS 90 QTc 366) - Radiology Data Radiology results: report reviewed (Chest x-ray is negative for acute disease CTA chest negative PE), image reviewed Critical Care Time Critical Care Time: Yes Total Critical Care Time: 31 Disposition Clinical Impression: Acute exacerbation of chronic obstructive airways disease, Acute tracheobronchitis, Mild CAD, Acute exacerbation of chronic obstructive pulmonary disease, Syncope, Hypertension Disposition: ADMITTED IP TO THIS HOSP Condition: Good Is patient prescribed a controlled substance at d/c from ED?: No Time of Disposition: 22:00
[2025-01-17] MEDS: SODIUM CHLORIDE 0.9% 1,000 ML IV ONE (21:01)
[2025-01-17 21:11] LABS: Basophils # (A) 0.07 10*3/uL (0.00-0.10); Basophils % (A) 0.8 %; Eosinophils # (A) 0.11 10*3/uL (0.04-0.35); Eosinophils % (A) 1.3 %; HGB 14.1 g/dL (13.0-17.0); Lymphocytes # (A) 1.05 10*3/uL (0.90-5.00); Lymphocytes % (A) 12.3 %; MCH 31.4 pg (27.0-32.0); MCHC 33.6 g/dL (32.0-37.0); MCV 93.5 fL (80.0-97.0); Mean Platelet Volume 9.9 fL (9.5-12.2); Monocytes # (A) 0.79 10*3/uL (0.20-1.00); Monocytes % (A) 9.2 %; Neutrophils # (A) 6.53 10*3/uL (1.80-7.70); Neutrophils % (A) 76.2 %; Platelet Count 217 10*3/uL (140-440); RBC 4.49 10*6/uL (4.40-5.60); RDW 12.3 % (11.5-14.5); WBC 8.57 10*3/uL (4.50-10.00)
[2025-01-17] MEDS: IPRATROPIUM-ALBUTEROL 3 ML NEB INHALATION STA ×3 (21:20→23:07)
[2025-01-17 21:29] LABS: Prothrombin Time 10.7 sec (10.0-12.5)
--- NOTE | 2025-01-17 21:30 | XR ---
EXAMINATION TYPE: XR chest 1V portable DATE OF EXAM: 01/17/2025 9:02 PM COMPARISON: Chest radiographs from 03/30/2016. CLINICAL INDICATION: Male, 70 years old with history of sob; TECHNIQUE: XR chest 1V portable Frontal view of the chest. FINDINGS: Lungs/Pleura: There is flattening of the diaphragm with increased lucency of the lungs. No evidence o f pneumothorax, pleural effusion or focal consolidation. Pulmonary vascularity: Unremarkable. Heart/mediastinum: Cardiomediastinal silhouette is unremarkable. Atherosclerotic calcifications are seen in the aorta. Musculoskeletal: No acute osseous pathology. IMPRESSION: 1. No acute cardiopulmonary disease process. 2. COPD changes. [facility], , 01/17/2025 9:27 PM
[2025-01-17 21:35] LABS: ALT 10 U/L (4-49); African American GFR (CKD) 84 (>60 ml/min/1.73 sqM); Anion Gap 4 mmol/L; Blood Urea Nitrogen 16 mg/dL (9-20); Calcium 9.5 mg/dL (8.4-10.2); Carbon Dioxide 33 mmol/L (22-30); Chloride 100 mmol/L (98-107); Glucose 124 mg/dL (74-99); Non-African American GFR(CKD) 73 (>60 ml/min/1.73 sqM); Sodium 137 mmol/L (137-145); Total Bilirubin 0.9 mg/dL (0.2-1.3)
[2025-01-17 21:37] LABS: AST 25 U/L (17-59); Albumin 3.9 g/dL (3.5-5.0); Alkaline Phosphatase 51 U/L (38-126); Magnesium 1.8 mg/dL (1.6-2.3)
[2025-01-17 21:42] LABS: NT-Pro-B-Type Natriuretic Pept 203 pg/mL
[2025-01-17 21:48] LABS: Partial Thromboplastin Time 19.1 sec (22.0-30.0)
[2025-01-17] MEDS: LABETALOL 5 MG/ML VIAL MDV IVP STA (21:49)
[2025-01-17] MEDS ORDERED: MORPHINE SULFATE 4 MG/ML SYRINGE IV PRN (21:52)
[2025-01-17] MEDS ORDERED: ONDANSETRON 4 MG/2 ML VIAL IVP PRN (21:52)
[2025-01-17] MEDS ORDERED: NALOXONE 0.4 MG/ML 1 ML VIAL IV PRN (21:52)
[2025-01-17] MEDS ORDERED: ACETAMINOPHEN TAB 325 MG TAB PO PRN (22:27)
[2025-01-17] MEDS: methylPREDNISolone SOD SUCCI 125 MG/2 ML VIAL IV STA (23:44)
--- NOTE | 2025-01-17 23:49 | P.HPIM ---
History of Present Illness H&P Date: 01/17/25 Patient is a 70-year-old male with CAD, hypertension, COPD (2L on home oxygen), nicotine dependence here for evaluation of lightheadedness. Patient reported that today around 6pm, he experienced lightheadedness as he was standing from the dinner table. He also had associated diaphoresis, fatigue and felt cold and clammy. He tried to walk but could not bear his own weight and had to be supported to lie down which led them to seek care. He denied chest pain, LOC, abdominal pain, extremity swelling, calf pain, focal weakness, shortness of breath, palpitations, fever, chills, nausea, vomiting, recent hospitalization. For the past week, he has been having multiple episodes of lightheadedness that is worse with walking with associated shortness of breath and fatigue. He also reported having a recent witnessed fall in October 2024 due to the same type of lightheadedness. He also reported an episode of bloody stool last week but has not had any recurrence. On admission: Vitals: Temp 97.8 F, OK 72, RR 19, BP 194/110, O2 saturation 94% on room air Labs: WBC 8.5, hemoglobin 14.1, bicarb 33, potassium 5, magnesium 1.8, calcium 9.5, BUN 16, creatinine 1.03, glucose 124, troponin less than 0.0 12, proBNP 203. Coagulation panel showed D-dimer 0.94, PTT 19.1, INR 1, PT 10.7. Liver function test within normal limits. Imaging: Chest x-ray showed no acute cardiopulmonary process, notable flattening of the diaphragm with increased lucency of the lungs. EKG independently interpreted showed sinus rhythm with a rate of 71, left axis deviation, inverted T waves in leads I, 2, aVF, 3, V4-V6. ED documentation reviewed. IV Solu-Medrol 60 mg, DuoNebs, and albuterol initiated in the ED. 1 L bolus of 0.9 normal saline given in the ED Review of systems: Pertinent positives and negatives as discussed in HPI, a complete review of systems was performed and all other systems are negative. Social history: Tobacco: Current daily smoker. Active for 50 years 1ppd. Alcohol: denied history of alcohol intake Recreational drugs: denied history of illicit or recreational drug use Travel: none Occupation: none Physical examination: Vital signs reviewed General: non toxic, no distress, appears at stated age, nasal cannula Derm: no unusual rashes/lesions, warm Head: atraumatic, normocephalic, symmetric Eyes: EOMI, anicteric sclera, pupils equal round reactive to light ENT: Nose and ears atraumatic Neck: No cervical lymphadenopathy, trachea midline, supple Mouth: no lip lesion, mucus membranes moist Cardiovascular: S1S2 reg, no murmur Lungs: Diffuse inspiratory wheezing, coarse rales diffusely, no accessory muscle use Abdominal: soft, nondistended, nontender to palpation, no guarding Ext: muscle strength 5 out of 5 in all 4 extremities grossly, no gross muscle atrophy, no contractures, positive dorsalis pedis pulse bilateral, no edema Neuro: CN II-XI grossly intact, no gross focal neuro deficits Psych: Alert and oriented x 3, appropriate affect and mood Assessment/Plan: 70-year-old male with CAD, hypertension, COPD on 2 L home oxygen and nicotine dependence here for evaluation of lightheadedness. The patient is admitted with an anticipated greater than 2 midnight stay for evaluation of presyncope. Active: #. Presyncope, likely cardiac, rule out other causes -EKG independently interpreted showed sinus rhythm with a rate of 71, left axis deviation, inverted T waves in leads I, 2, aVF, 3, V4-V6. -Cardiac monitoring -Heart healthy diet -Check Orthostatics -Troponin <0.012 on admission. Trend troponin -EKG as needed -CT angio of the chest no acute PE , no masses -Echocardiogram ordered -Continue with aspirin 81 mg daily -Cardiology consulted #. Hypertensive urgency - Blood pressure 194/110 on admission - Given labetalol 20 mg IVP once in the ED. Blood pressure has now decreased to 174/101 - Patient currently denied chest pain, focal weakness. Reported that he has not taken his BP meds today. - Clonidine 0.1mg PO prn for SBP >180 DBP>110 -Amlodipine 10mg and HCTZ 25mg daily - Continue to monitor blood pressure #. Chronic hypoxic respiratory failure secondary to COPD, not in exacerbation - Chest x-ray showed no acute cardiopulmonary process, notable flattening of the diaphragm with increased lucency of the lungs -DuoNeb inhaler QID and PRN -Solumedrol 125 mg IV given in the ED. -Symbicort 160-4.5mcg twice daily -Supplemental oxygen as needed. Goal O2 sat 88-92% #. questionable episode of Hematochezia -Patient claims that he had an episode of bloody stool. -Advise colonoscopy on out patient basis hemoglobin 14.1 unremarkable , continue to monitor Chronic Conditions: #. CAD #. Hyperlipidemia - Continue home aspirin and 40 mg Lipitor F: Oral intake N: Heart healthy diet A: Ambulate as needed DVT ppx: Lovenox 40 mg subcu daily GI ppx: Protonix 40 mg p.o. daily CODE STATUS: Full Discussed with: Patient Anticipated discharge place: Home Kaye Girmaldo MD PGY-1 Internal Medicine Dictation was produced using [employer] dictation software. please excuse any grammatical, word or spelling errors. I have seen and evaluated the patient today. I Discussed the case with the resident and agree with the resident's findings I edited the assessment and plan as necessary as documented in the resident's note. Past Medical History Past Medical History: Coronary Artery Disease (CAD), COPD, Hypertension Additional Past Medical History / Comment(s): diverticulitis History of Any Multi-Drug Resistant Organisms: None Reported Past Surgical History: Bowel Resection Additional Past Surgical History / Comment(s): kidney stone removal, neck surgery, sinus surgery Past Anesthesia/Blood Transfusion Reactions: No Reported Reaction Past Psychological History: No Psychological Hx Reported Smoking Status: Current every day smoker Past Alcohol Use History: None Reported Past Drug Use History: None Reported - Past Family History Family Family Medical History: No Reported History Medications and Allergies Home Medications Medication Instructions Recorded Confirmed Type Aspirin 81 mg PO DAILY 30 Days #30 chew 03/06/21 Rx Atorvastatin [Lipitor] 40 mg PO DAILY 30 Days #30 tab 03/06/21 Rx Fluticasone Propionate 220 Mcg 2 puff INHALATION RT-BID #1 inhaler 03/06/21 Rx [Flovent 220 Mcg Inhaler (Mhu)] Ipratropium-Albuterol Nebulize 3 ml INHALATION RT-Q2H PRN 30 Days 03/06/21 Rx [Duoneb 0.5 mg-3 mg/3 ml Soln] #1 box amLODIPine [Norvasc] 10 mg PO DAILY 30 Days #30 tab 03/06/21 Rx carvediloL [Coreg] 6.25 mg PO BID-W/MEALS 30 Days #60 03/06/21 Rx tab lisinopriL [Zestril] 5 mg PO DAILY 30 Days #30 tab 03/06/21 Rx methylPREDNISolone Dose Pack 4 mg PO DIRECTED #21 package 03/06/21 Rx [Medrol Dose Pack] Allergies Allergy/AdvReac Type Severity Reaction Status Date / Time codeine AdvReac anxiety Verified 01/17/25 20:31 Physical Exam Vitals: Vital Signs Temp Pulse Resp BP Pulse Ox 01/17/25 21:51 78 18 174/101 98 01/17/25 21:34 73 01/17/25 21:21 78 01/17/25 20:19 97.8 F 72 19 194/110 94 L Intake and Output 01/17/25 01/17/25 01/17/25 06:59 14:59 22:59 Other: Weight 90.718 kg Results CBC & Chem 7: 01/17/25 20:59 01/17/25 20:59 Labs: Abnormal Lab Results - Last 24 Hours (Table) 01/17/25 01/17/25 01/17/25 Range/Units 20:59 20:59 20:59 APTT 19.1 L (22.0-30.0) sec D-Dimer 0.94 H (<0.60) mg/L FEU Carbon Dioxide 33 H (22-30) mmol/L Glucose 124 H (74-99) mg/dL
[2025-01-17] MEDS: SODIUM CHLORIDE 0.9% 1,000 ML IV SCH (23:50)
--- NOTE | 2025-01-17 23:56 | CT ---
EXAM: CT Angiography Chest With Intravenous Contrast CLINICAL HISTORY: ITS.REASON CT Reason: PE TECHNIQUE: Axial computed tomographic angiography images of the chest with intravenous contrast. CTDI is 7.1 mGy and DLP is 336.7 mGy-cm. This CT exam was performed using one or more of the following dose reduction techniques: automated exposure control, adjustment of the mA and/or kV according to patient size, and/or use of iterative reconstruction technique. MIP reconstructed images were created and reviewed. COMPARISON: No relevant prior studies available. FINDINGS: Pulmonary arteries: Unremarkable. No pulmonary embolism. Aorta: Atherosclerotic changes of the aorta. No thoracic aortic aneurysm. Lungs: Mild centrilobular emphysema. No mass. Pleural space: Unremarkable. No significant effusion. No pneumothorax. Heart: Unremarkable. No cardiomegaly. No significant pericardial effusion. No evidence of RV dysfunction. Bones/joints: Degenerative changes of the spine. No acute fracture. No dislocation. Soft tissues: Unremarkable. Lymph nodes: Unremarkable. No enlarged lymph nodes. IMPRESSION: 1. No pulmonary embolism. 2. Mild centrilobular emphysema.
[2025-01-18] MEDS ORDERED: methylPREDNISolone SOD SUCCI 125 MG/2 ML VIAL IV SCH
[2025-01-18] MEDS: ATORVASTATIN 40 MG TAB PO SCH (00:07)
[2025-01-18 03:28] LABS: Basophils # (A) 0.03 10*3/uL (0.00-0.10); Basophils % (A) 0.4 %; Eosinophils # (A) 0.01 10*3/uL (0.04-0.35); Eosinophils % (A) 0.1 %; HGB 12.7 g/dL (13.0-17.0); Lymphocytes # (A) 0.45 10*3/uL (0.90-5.00); Lymphocytes % (A) 5.5 %; MCH 30.8 pg (27.0-32.0); MCHC 32.6 g/dL (32.0-37.0); MCV 94.7 fL (80.0-97.0); Mean Platelet Volume 9.4 fL (9.5-12.2); Monocytes # (A) 0.13 10*3/uL (0.20-1.00); Monocytes % (A) 1.6 %; Neutrophils # (A) 7.54 10*3/uL (1.80-7.70); Neutrophils % (A) 92.2 %; Platelet Count 187 10*3/uL (140-440); RBC 4.12 10*6/uL (4.40-5.60); RDW 12.4 % (11.5-14.5); WBC 8.18 10*3/uL (4.50-10.00)
[2025-01-18 03:40] LABS: ALT 9 U/L (4-49); AST 14 U/L (17-59); African American GFR (CKD) 85 (>60 ml/min/1.73 sqM); Albumin 3.4 g/dL (3.5-5.0); Alkaline Phosphatase 65 U/L (38-126); Anion Gap 4 mmol/L; Blood Urea Nitrogen 16 mg/dL (9-20); Calcium 8.9 mg/dL (8.4-10.2); Carbon Dioxide 30 mmol/L (22-30); Chloride 106 mmol/L (98-107); Glucose 171 mg/dL (74-99); Magnesium 1.6 mg/dL (1.6-2.3); Non-African American GFR(CKD) 73 (>60 ml/min/1.73 sqM); Phosphorus 1.7 mg/dL (2.5-4.5); Sodium 140 mmol/L (137-145); Total Bilirubin 0.5 mg/dL (0.2-1.3); Total Protein 6.2 g/dL (6.3-8.2)
[2025-01-18] MEDS: ALBUTEROL NEBULIZED 2.5 MG/3 ML INHALATION SCH (08:04)
[2025-01-18] MEDS: SYMBICORT 160-4.5 MCG INHALER INHALATION SCH (08:04)
[2025-01-18] MEDS ORDERED: predniSONE 20 MG TAB PO SCH (09:00)
--- NOTE | 2025-01-18 09:04 | P.CRDCN ---
History of Present Illness Consult date: 01/18/25 Reason for Consult (text): Syncope History of present illness: This is a 70-year-old previously seen in the office many years ago by Dr. 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 He also has a past medical history of COPD, hyperlipidemia, tobacco use. Patient states that he blacked out. He was just out of bed Blood pressure 132/86, heart rate 79, pulse ox 93% on 2 L nasal cannula. -EKG: Sinus rhythm with ST-T wave changes that were present on previous EKG -Chest x-ray: No acute process. COPD. -CTA of the chest ruled out PE -Laboratory studies: Troponin negative x 3 hemoglobin 12.7, creatinine 1.02, proBNP 203. Magnesium 1.6, potassium 4.0. -Home cardiac medications: Have not been confirmed at the time of this dictation. -[facility] revealed calcified coronary arteries. Mild disease in the left circumflex on the right coronary artery and medical management was recommended as well as smoking cessation. -Echocardiogram performed in 2020 at [facility] revealed EF of 55 to 60%, trace aortic regurgitation, mild mitral regurgitation, trace tricuspid regurgitation. Mild concentric left ventricular hypertrophy. Review Of Systems: At the time of my exam: CONSTITUTIONAL: Denies fever or chills. HEENT: Denies blurred vision, vision changes, or eye pain. Denies hemoptysis CARDIOVASCULAR: Denies chest pain. Denies orthopnea. Denies PND. Denies palpitations RESPIRATORY: Denies shortness of breath. GASTROINTESTINAL: Denies abdominal pain. Denies nausea or vomiting. HEMATOLOGIC: Denies bleeding disorders. GENITOURINARY: Denies any blood in urine. SKIN: Denies puritis. Denies rash. Physical examination: Gen: This is 70-year-old male in no acute distress VS: reviewed HEENT: Head is atraumatic, normocephalic. Pupils equal, round. Sclerae is anicteric. NECK: Supple. No JVD. LUNGS: Clear to auscultation. No wheezes or rhonchi. No intercostal retractions. HEART: Regular rate and rhythm. Systolic murmur. ABDOMEN: Soft No tenderness. EXTREMITIES: No pedal edema. No calf tenderness. NEUROLOGICAL: Patient is awake, alert and oriented x3. Assessment: Syncopal episode of unclear etiology, rule out cardiac etiology Nonspecific changes on EKG present on previous 1 done in 2020 Hypertension COPD Hyperlipidemia History of dysautonomia with neurocardiogenic syncope following cervical spine surgery Plan: Resume patient's home cardiac medications Continue telemetry Obtain 2-D echocardiogram and Doppler study to assess cardiac structure and function If patient is asymptomatic by tomorrow, most likely discharge home and will follow-up in the office with Dr. Chad Joseph for stress testing. Thank you kindly for this consultation. Nurse practitioner note has been reviewed, I agree with documented findings and plan of care. Patient was seen and examined. Past Medical History Past Medical History: Coronary Artery Disease (CAD), COPD, Hypertension Additional Past Medical History / Comment(s): diverticulitis History of Any Multi-Drug Resistant Organisms: None Reported Past Surgical History: Bowel Resection Additional Past Surgical History / Comment(s): kidney stone removal, neck surgery, sinus surgery Past Anesthesia/Blood Transfusion Reactions: No Reported Reaction Past Psychological History: No Psychological Hx Reported Smoking Status: Current every day smoker Past Alcohol Use History: None Reported Past Drug Use History: None Reported - Past Family History Family Family Medical History: No Reported History Medications and Allergies Home Medications Medication Instructions Recorded Confirmed Type Aspirin 81 mg PO DAILY 30 Days #30 chew 03/06/21 Rx Atorvastatin [Lipitor] 40 mg PO DAILY 30 Days #30 tab 03/06/21 Rx Fluticasone Propionate 220 Mcg 2 puff INHALATION RT-BID #1 inhaler 03/06/21 Rx [Flovent 220 Mcg Inhaler (Mhu)] Ipratropium-Albuterol Nebulize 3 ml INHALATION RT-Q2H PRN 30 Days 03/06/21 Rx [Duoneb 0.5 mg-3 mg/3 ml Soln] #1 box amLODIPine [Norvasc] 10 mg PO DAILY 30 Days #30 tab 03/06/21 Rx carvediloL [Coreg] 6.25 mg PO BID-W/MEALS 30 Days #60 03/06/21 Rx tab lisinopriL [Zestril] 5 mg PO DAILY 30 Days #30 tab 03/06/21 Rx methylPREDNISolone Dose Pack 4 mg PO DIRECTED #21 package 03/06/21 Rx [Medrol Dose Pack] Allergies Allergy/AdvReac Type Severity Reaction Status Date / Time codeine AdvReac anxiety Verified 01/17/25 20:31 Physical Exam Vitals: Vital Signs Temp Pulse Resp BP Pulse Ox 01/18/25 03:46 79 16 132/86 93 L 01/18/25 00:08 85 17 153/98 91 L 01/17/25 23:26 82 01/17/25 23:08 76 01/17/25 21:51 78 18 174/101 98 01/17/25 21:34 73 01/17/25 21:21 78 01/17/25 20:19 97.8 F 72 19 194/110 94 L Intake and Output 01/17/25 01/18/25 01/18/25 22:59 06:59 14:59 Other: Weight 90.718 kg Results 01/18/25 03:14 01/18/25 03:14 Cardiac Enzymes 01/17/25 01/17/25 01/17/25 Range/Units 20:59 20:59 23:30 AST 25 (17-59) U/L Troponin I <0.012 <0.012 (0.000-0.034) ng/mL 01/18/25 01/18/25 Range/Units 03:14 03:14 AST 14 L (17-59) U/L Troponin I <0.012 (0.000-0.034) ng/mL Coagulation 01/17/25 Range/Units 20:59 PT 10.7 (10.0-12.5) sec APTT 19.1 L (22.0-30.0) sec CBC 01/17/25 01/18/25 Range/Units 20:59 03:14 WBC 8.57 8.18 (4.50-10.00) 10*3/uL RBC 4.49 4.12 L (4.40-5.60) 10*6/uL Hgb 14.1 12.7 L (13.0-17.0) g/dL Hct 42.0 39.0 L (39.6-50.0) % Plt Count 217 187 (140-440) 10*3/uL Comprehensive Metabolic Panel 01/17/25 01/18/25 Range/Units 20:59 03:14 Sodium 137 140 (137-145) mmol/L Potassium 5.0 4.0 (3.5-5.1) mmol/L Chloride 100 106 (98-107) mmol/L Carbon Dioxide 33 H 30 (22-30) mmol/L BUN 16 16 (9-20) mg/dL Creatinine 1.03 1.02 (0.66-1.25) mg/dL Glucose 124 H 171 H (74-99) mg/dL Calcium 9.5 8.9 (8.4-10.2) mg/dL AST 25 14 L (17-59) U/L ALT 10 9 (4-49) U/L Alkaline Phosphatase 51 65 (38-126) U/L Total Protein 7.0 6.2 L (6.3-8.2) g/dL Albumin 3.9 3.4 L (3.5-5.0) g/dL Current Medications Generic Name Dose Route Start Last Admin Trade Name Freq PRN Reason Stop Dose Admin Acetaminophen 650 mg 01/17/25 22:27 Acetaminophen Tab 325 Mg Tab PO Q4HR PRN Mild Pain or Fever > 100.5 Albuterol Sulfate 2.5 mg 01/18/25 08:00 Albuterol Nebulized 2.5 Mg/3 Ml INHALATION RT-QID [facility] Amlodipine Besylate 5 mg 01/18/25 09:00 Amlodipine 5 Mg Tab PO DAILY [facility] Aspirin 81 mg 01/18/25 09:00 Aspirin 81 Mg PO DAILY [facility] Atorvastatin Calcium 40 mg 01/17/25 23:45 01/18/25 00:07 Atorvastatin 40 Mg Tab PO 40 mg HS [facility] Administration Budesonide/Formoterol Fumarate 2 puff 01/18/25 08:00 Symbicort 160-4.5 Mcg Inhaler INHALATION RT-BID [facility] Enoxaparin Sodium 40 mg 01/18/25 09:00 Enoxaparin 40 Mg/0.4 Ml Syringe SQ DAILY [facility] Hydrochlorothiazide 25 mg 01/18/25 09:00 Hydrochlorothiazide 25 Mg Tab PO DAILY [facility] Sodium Chloride 1,000 mls @ 75 mls/hr 01/17/25 22:00 01/17/25 23:50 Saline 0.9% IV 75 mls/hr .[id number] GUCCI Administration Morphine Sulfate 4 mg 01/17/25 21:52 Morphine Sulfate 4 Mg/Ml Syringe IV Q4HR PRN Severe Pain (Scale 7 to 10) Naloxone HCl 0.2 mg 01/17/25 21:52 Naloxone 0.4 Mg/Ml 1 Ml Vial IV Q2M PRN Opioid Reversal Ondansetron HCl 4 mg 01/17/25 21:52 Ondansetron 4 Mg/2 Ml Vial IVP Q8HR PRN Nausea And Vomiting Pantoprazole Sodium 40 mg 01/18/25 07:30 Pantoprazole 40 Mg Tablet PO [id number] GUCCI Intake and Output 01/17/25 01/18/25 01/18/25 22:59 06:59 14:59 Other: Weight 90.718 kg 01/18/25 03:14 01/18/25 03:14
[2025-01-18] MEDS: ENOXAPARIN 40 MG/0.4 ML SYRINGE SQ SCH (09:31)
[2025-01-18] MEDS: PANTOPRAZOLE 40 MG TABLET PO SCH (09:31)
[2025-01-18] MEDS: hydroCHLOROthiazide 25 MG TAB PO SCH (09:31)
[2025-01-18] MEDS: amLODIPine 5 MG TAB PO SCH (09:31)
[2025-01-18] MEDS: ASPIRIN 81 MG PO SCH (09:31)
--- NOTE | 2025-01-18 11:03 | P.PN ---
Subjective Progress Note Date: 01/18/25 Hospital Course: Patient is a 70-year-old male with CAD, hypertension, COPD (2L on home oxygen), nicotine dependence here for evaluation of lightheadedness. Patient reported that today around 6pm, he experienced lightheadedness as he was standing from the dinner table. He also had associated diaphoresis, fatigue and felt cold and clammy. He tried to walk but could not bear his own weight and had to be supported to lie down which led them to seek care. He denied chest pain, LOC, abdominal pain, extremity swelling, calf pain, focal weakness, shortness of breath, palpitations, fever, chills, nausea, vomiting, recent hospitalization. For the past week, he has been having multiple episodes of lightheadedness that is worse with walking with associated shortness of breath and fatigue. He also reported having a recent witnessed fall in October 2024 due to the same type of lightheadedness. He also reported an episode of bloody stool last week but has not had any recurrence. Subjective: Patient seen and examined at bedside. No acute events overnight. Patient still reports some lightheadedness. No fever, chills, nausea, vomiting, chest pain, shortness of breath, belly pain, diarrhea, constipation. Pertinent positives and negatives as discussed above, a complete review of systems was performed and all other systems are negative. Vitals: Signs Reviewed Physical Exam: General: nontoxic, no distress, appears at stated age Derm: warm, dry, intact Head: atraumatic, normocephalic, symmetric Eyes: EOMI, anicteric sclera Mouth: no lip lesion, mucus membranes moist Cardiovascular: S1 S2 reg, no murmur, rubs, or gallops Lungs: Slight expiratory wheezing across lung smith bilaterally, no rhonchi, no rales, no accessory muscle use Abdominal: soft, non-tender to palpataion, no appreciable organomegaly Extremities: no gross muscle atrophy, no edema, no contractures Neuro: Alert, Oriented, CNII-XII grossly intact, gait normal Psych: well appearing, appropriate affect Data Received Today: Pertinent Labs: WBC 8.18, hemoglobin 12.7, hematocrit 39, platelet 187, sodium 140, potassium 4.0, chloride 106, carbon dioxide 30, BUN 16, creatinine 1.02, glucose 171, phosphorus 1.7, troponin less than 0.012 Vitals: Pulse rate 79, respiratory rate 16, blood pressure 132/86, O2 sat 93% on nasal cannula 2 L/min Imaging: CT angio of chest on 01/17/2025 showed no pulmonary embolism and mild centrilobular emphysema Chest x-ray showed no acute cardiopulmonary disease EKG showed sinus rhythm with ventricular rate of 71 bpm, QTc 366 ms, no ST elevation or depression Assessment/Plan: 70-year-old male with CAD, hypertension, COPD on 2 L home oxygen and nicotine dependence here for evaluation of lightheadedness. The patient is admitted with an anticipated greater than 2 midnight stay for evaluation of presyncope. Active: #. Presyncope, likely vasovagal versus orthostatic -EKG independently interpreted showed sinus rhythm with a rate of 71, left axis deviation, inverted T waves in leads I, 2, aVF, 3, V4-V6. -Cardiac monitoring -Heart healthy diet -Check Orthostatics -Troponin <0.012 on admission. Trend troponin -EKG as needed -CT angio of the chest no acute PE , no masses -Pending echocardiogram results -Continue with aspirin 81 mg daily -Cardiology consulted #. COPD exacerbation - DuoNeb inhaler 4 times daily and as needed - Solu-Medrol 125 mg IV given in the ED - Solu-Medrol 40 mg every 8 hours - Symbicort 160-4.5 mcg twice daily - Supplemental oxygen as needed. Goal O2 sat 88 to 92% #. Hypophosphatemia Phosphorus 1.7 Neutra-Phos packet p.o. 3 times daily Continue to monitor morning CMP #. Hypertensive urgency - Blood pressure 194/110 on admission - Given labetalol 20 mg IVP once in the ED. Blood pressure has now decreased to 174/101 - Patient currently denied chest pain, focal weakness. Reported that he has not taken his BP meds today. - Clonidine 0.1mg PO prn for SBP >180 DBP>110 -Amlodipine 10mg and HCTZ 25mg daily - Continue to monitor blood pressure #. questionable episode of Hematochezia -Patient claims that he had an episode of bloody stool. -Advise colonoscopy on out patient basis -Last colonoscopy more than 10 years ago -Hemoglobin 12.7 this morning Chronic Conditions: #. CAD #. Hyperlipidemia - Continue home aspirin and 40 mg Lipitor F: Oral intake N: Heart healthy diet A: Ambulate as needed DVT ppx: Lovenox 40 mg subcu daily GI ppx: Protonix 40 mg p.o. daily CODE STATUS: Full Discussed with: Patient Anticipated discharge place: Home I saw and evaluated the patient during the brooks and critical portions of this encounter, and discussed the case in detail with the resident author of this note, I agree with the Assessment and Plan, and my changes, if any, are highlighted in blue. Objective - Vital Signs Vital signs: Vital Signs Temp 97.8 F 01/17/25 20:19 Pulse 79 01/18/25 03:46 Resp 16 01/18/25 03:46 BP 132/86 01/18/25 03:46 Pulse Ox 93 L 01/18/25 03:46 FiO2 Intake & Output 01/17/25 01/17/25 01/18/25 06:59 18:59 06:59 Weight 90.718 kg - Labs CBC & Chem 7: 01/18/25 03:14 01/18/25 03:14 Labs: Abnormal Lab Results - Last 24 Hours (Table) 01/17/25 01/17/25 01/17/25 Range/Units 20:59 20:59 20:59 RBC (4.40-5.60) 10*6/uL Hgb (13.0-17.0) g/dL Hct (39.6-50.0) % MPV (9.5-12.2) fL Lymphocytes # (0.90-5.00) 10*3/uL Monocytes # (0.20-1.00) 10*3/uL Eosinophils # (0.04-0.35) 10*3/uL APTT 19.1 L (22.0-30.0) sec D-Dimer 0.94 H (<0.60) mg/L FEU Carbon Dioxide 33 H (22-30) mmol/L Glucose 124 H (74-99) mg/dL Phosphorus (2.5-4.5) mg/dL AST (17-59) U/L Total Protein (6.3-8.2) g/dL Albumin (3.5-5.0) g/dL 01/18/25 01/18/25 Range/Units 03:14 03:14 RBC 4.12 L (4.40-5.60) 10*6/uL Hgb 12.7 L (13.0-17.0) g/dL Hct 39.0 L (39.6-50.0) % MPV 9.4 L (9.5-12.2) fL Lymphocytes # 0.45 L (0.90-5.00) 10*3/uL Monocytes # 0.13 L (0.20-1.00) 10*3/uL Eosinophils # 0.01 L (0.04-0.35) 10*3/uL APTT (22.0-30.0) sec D-Dimer (<0.60) mg/L FEU Carbon Dioxide (22-30) mmol/L Glucose 171 H (74-99) mg/dL Phosphorus 1.7 L (2.5-4.5) mg/dL AST 14 L (17-59) U/L Total Protein 6.2 L (6.3-8.2) g/dL Albumin 3.4 L (3.5-5.0) g/dL
[2025-01-18] MEDS ORDERED: ALBUTEROL NEBULIZED 2.5 MG/3 ML INHALATION PRN (16:14)
[2025-01-18] MEDS: POTAS-SOD-PHOS 280-160-250 MG 1 EACH PACKET PO SCH (16:23)
[2025-01-18] MEDS: methylPREDNISolone SOD SUCCI 40 MG/ML 1 ML VIAL IV SCH (16:23)
[2025-01-18] MEDS: carvediloL 6.25 MG TAB PO SCH (16:45)
--- NOTE | 2025-01-19 07:46 | CA ---
Transthoracic Echo Report Name: Pratibha Castellanos Age: 70 Gender: M : 1955 Exam Date: 01/18/2025 14:40 Exam Location: [place] [facility] Ht (in): 69 Wt (lb): 200 Ordering Physician: Kaye Grimaldo MD Attending/Referring Phys: [employer] Teacher Laura Purcell RDCS Procedure CPT: Indications: presyncope Cardiac Hx: Technical Quality: Fair Contrast 1: Total Dose (mL): Contrast 2: Total Dose (mL): MEASUREMENTS (Male / Female) Normal Values 2D ECHO LV Diastolic Diameter PLAX 3.8 cm 4.2 - 5.9 / 3.9 - 5.3 cm LV Systolic Diameter PLAX 1.9 cm IVS Diastolic Thickness 1.5 cm 0.6 - 1.0 / 0.6 - 0.9 cm LVPW Diastolic Thickness 1.4 cm 0.6 - 1.0 / 0.6 - 0.9 cm LV Relative Wall Thickness 0.8 RV Internal Dim ED PLAX 3.2 cm LVOT Diameter 1.9 cm LA Systolic Diameter LX 2.8 cm 3.0 - 4.0 / 2.7 - 3.8 cm LV Diastolic Volume MOD BP 34.0 cm??? 67 - 155 / 56 - 104 cm??? LV Systolic Volume MOD BP 11.7 cm??? - 58 / 19 - 49 cm??? LV Ejection Fraction MOD BP 65.6 % >= 55 % LV Cardiac Index MOD BP 998.1 cm???/min???m??? LV Diastolic Volume MOD 4C 42.6 cm??? LV Systolic Volume MOD 4C 12.5 cm??? LV Ejection Fraction MOD 4C 70.6 % LV Cardiac Index MOD 4C 1345.5 cm???/min???m??? LV Diastolic Length 4C 7.0 cm LV Systolic Length 4C 5.9 cm LV Diastolic Volume MOD 2C 26.4 cm??? LV Systolic Volume MOD 2C 10.7 cm??? LV Ejection Fraction MOD 2C 59.6 % LV Cardiac Index MOD 2C 704.1 cm???/min???m??? LV Diastolic Length 2C 6.7 cm LV Systolic Length 2C 5.7 cm LA Volume 24.4 cm??? 18 - 58 / 22 - 52 cm??? LA Volume Index 11.5 cm???/m??? 16 - 28 cm???/m??? M-MODE Aortic Root Diameter MM 3.5 cm LA Systolic Diameter MM 2.8 cm LA Ao Ratio MM 0.8 AV Cusp Separation MM 1.5 cm DOPPLER MV Area PHT 3.4 cm??? Mitral E Point Velocity 68.4 cm/s Mitral A Point Velocity 88.8 cm/s Mitral E to A Ratio 0.8 MV Deceleration Time 222.6 ms TR Peak Velocity 275.5 cm/s TR Peak Gradient 30.4 mmHg Right Ventricular Systolic Press 34.8 mmHg FINDINGS Left Ventricle Left ventricular ejection fraction is estimated at 55-60%. Moderately increased septal wall thickness. Normal left ventricular systolic function with no obvious regional wall motion abnormalities. Left ventricular cavity size normal. Right Ventricle Normal right ventricular size and function. Right ventricular systolic pressure within normal limits. Right Atrium Normal right atrial size. Left Atrium Normal left atrial size. Mitral Valve Structurally normal mitral valve. Trace mitral regurgitation. No mitral stenosis. Aortic Valve Trileaflet aortic valve. No aortic valve stenosis or regurgitation. Tricuspid Valve Structurally normal tricuspid valve. Mild tricuspid regurgitation. No tricuspid stenosis. Pulmonic Valve Structurally normal pulmonic valve. Trace pulmonic regurgitation. No pulmonic stenosis. Pericardium No pericardial or pleural effusion. Echo free space anterior to the right ventricle likely represents a fat pad. Aorta Aorta at upper limits of normal. CONCLUSIONS Normal LV function Previewed by: Dr. Stefano Joseph MD (Electronically Signed) Final Date: 19 Jan 2025 07:45
[2025-01-19] MEDS: LOSARTAN 50 MG TAB PO SCH (08:28)
[2025-01-19] MEDS: TAMSULOSIN 0.4 MG CAP.ER.24H PO SCH (08:28)
[2025-01-19] MEDS: amLODIPine 10 MG TAB PO SCH (08:28)
--- NOTE | 2025-01-19 09:17 | P.DS ---
Providers Date of admission: 01/17/25 21:54 Expected date of discharge: 01/19/25 Attending physician: Isaac Khan MD Consults: 01/17/25 21:52 Consult Physician Routine Consulting Provider: Echo Ozuna Consult Reason/Comments: syncope Do you want consulting provider notified?: Yes Primary care physician: Shayne Tavarez [facility] Course: #. Presyncope, likely vasovagal versus orthostatic #. COPD exacerbation #. Hypophosphatemia #. Hypertensive urgency #. questionable episode of Hematochezia #. CAD #. Hyperlipidemia Hospital Course: Patient is a 70-year-old male with CAD, hypertension, COPD (2L on home oxygen), nicotine dependence here for evaluation of lightheadedness. Pt was HDS, but +orthostatics by criteria of 20pt increase of HR upon standing. Pt received IVF, and was monitored on telemetry. Echo was normal. CXR was negative for infiltrate, effusion, consolidation, PTX. CT angio was negative for PE. EKG showed sinus rhythm with no ischemic changes. Cardiology was consulted. Phosphorus low, electrolytes replaced. Pt was felt to be in COPD exacerbation and was started on steroids, nebulizers, discharged on symbicort, albuterol inh PRN, and prednisone 40mg daily. He will f/u with PCP, pulmonology, cardiology. Smoking cessation counseling provided. Gen: In NAD, non-toxic HEENT: normocephalic, atraumatic, hearing acuity is intant, mucous membranes moist CVS: perfusing all extremities well, no pitting edema, Respiratory: symmetric chest expansion, no accessory muscle use, GI: soft, NTTP, ND, : no suprapubic tenderness, no CVA tenderness MSK/Derm: no rashes, cyanosis Neuro: CN II-XII intact, no motor weakness, Psych: cooperative, euthymic mood, judgment and insight is intact Patient Condition at Discharge: Good Plan - Discharge Summary Discharge Rx Participant: Yes New Discharge Prescriptions: New predniSONE [Deltasone] 40 mg PO DAILY 3 Days #6 tab Budesonide-Formot 160-4.5 Mcg [Symbicort 160-4.5 Mcg Inhaler] 2 puff INHALATION RT-BID #1 each Acetaminophen Tab [Tylenol] 650 mg PO Q4HR PRN tab PRN Reason: Mild Pain Or Fever > 100.5 Albuterol Inhaler [Ventolin Hfa Inhaler] 1 - 2 puff INHALATION Q4H PRN #1 each PRN Reason: Dyspnea Continue carvediloL [Coreg] 6.25 mg PO BID-W/MEALS 30 Days #60 tab Ipratropium-Albuterol Nebulize [Duoneb 0.5 mg-3 mg/3 ml Soln] 3 ml INHALATION RT-Q2H PRN 30 Days #1 box PRN Reason: Shortness Of Breath Or Wheezing amLODIPine [Norvasc] 10 mg PO DAILY 30 Days #30 tab Atorvastatin [Lipitor] 40 mg PO HS Tamsulosin [Flomax] 0.4 mg PO DAILY Losartan [Cozaar] 50 mg PO DAILY Albuterol Nebulized [Ventolin Nebulized] 3 ml INHALATION RT-TID PRN PRN Reason: Shortness Of Breath Discharge Medication List Ipratropium-Albuterol Nebulize [Duoneb 0.5 mg-3 mg/3 ml Soln] 3 ml INHALATION RT-Q2H PRN 30 Days #1 box 03/06/21 [Rx] amLODIPine [Norvasc] 10 mg PO DAILY 30 Days #30 tab 03/06/21 [Rx] carvediloL [Coreg] 6.25 mg PO BID-W/MEALS 30 Days #60 tab 03/06/21 [Rx] Albuterol Nebulized [Ventolin Nebulized] 3 ml INHALATION RT-TID PRN 01/18/25 [History] Atorvastatin [Lipitor] 40 mg PO HS 01/18/25 [History] Losartan [Cozaar] 50 mg PO DAILY 01/18/25 [History] Tamsulosin [Flomax] 0.4 mg PO DAILY 01/18/25 [History] Acetaminophen Tab [Tylenol] 650 mg PO Q4HR PRN tab 01/19/25 [Rx] Albuterol Inhaler [Ventolin Hfa Inhaler] 1 - 2 puff INHALATION Q4H PRN #1 each 01/19/25 [Rx] Budesonide-Formot 160-4.5 Mcg [Symbicort 160-4.5 Mcg Inhaler] 2 puff INHALATION RT-BID #1 each 01/19/25 [Rx] predniSONE [Deltasone] 40 mg PO DAILY 3 Days #6 tab 01/19/25 [Rx] Follow up Appointment(s)/Referral(s): Gary Ramirez MD [STAFF PHYSICIAN] - 1 Week Shayne Butts MD [Primary Care Provider] - 1-2 days Stefano Joseph MD [STAFF PHYSICIAN] - 2 Weeks Discharge Disposition: HOME SELF-CARE
[2025-01-19 10:09] LABS: Basophils # (A) 0.02 X 10*3/uL (0.00-0.10); Basophils % (A) 0.2 %; Eosinophils # (A) 0 X 10*3/uL (0.04-0.35); Eosinophils % (A) 0 %; HCT 39.3 % (39.6-50.0); HGB 12.7 g/dL (13.0-17.0); Lymphocytes # (A) 0.65 X 10*3/uL (0.90-5.00); Lymphocytes % (A) 5.7 %; MCH 30.5 pg (27.0-32.0); MCHC 32.3 g/dL (32.0-37.0); MCV 94.5 FL (80.0-97.0); Mean Platelet Volume 10.4 FL (9.5-12.2); Monocytes # (A) 0.39 X 10*3/uL (0.20-1.00); Monocytes % (A) 3.4 %; NRBC Per 100 WBC 0 X 10*3/uL (0.00-0.01); Neutrophils # (A) 10.21 X 10*3/uL (1.80-7.70); Neutrophils % (A) 89.8 %; Platelet Count 213 X 10*3/uL (140-440); RBC 4.16 X 10*6/uL (4.40-5.60); RDW 12.5 % (11.5-14.5); WBC 11.37 X 10*3/uL (4.50-10.00)
--- NOTE | 2025-01-19 10:43 | P.PN ---
Subjective Progress Note Date: 01/19/25 Reason for Consult (text): Syncope History of present illness: This is a 70-year-old previously seen in the office many years ago by Dr. 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 He also has a past medical history of COPD, hyperlipidemia, tobacco use. Patient states that he had just gotten out of bed and he started to black out. He also had sweats and was not able to walk. In general he has not been feeling well for at least a week. He denies chest pain, chest pressure. He denies palpitations. No nausea or vomiting. He complains of generalized weakness. No fever or chills. He does complain of lightheadedness. He states he feels somewhat better now and is not sure why he has improved. Blood pressure 132/86, heart rate 79, pulse ox 93% on 2 L nasal cannula. -EKG: Sinus rhythm with ST-T wave changes that were present on previous EKG -Chest x-ray: No acute process. COPD. -CTA of the chest ruled out PE -Laboratory studies: Troponin negative x 3 hemoglobin 12.7, creatinine 1.02, proBNP 203. Magnesium 1.6, potassium 4.0. -Home cardiac medications: Have not been confirmed at the time of this dictation. -Cardiac catheterization in 2020 performed by [facility] revealed calcified coronary arteries. Mild disease in the left circumflex on the right coronary artery and medical management was recommended as well as smoking cessation. -Echocardiogram performed in 2020 at [facility] revealed EF of 55 to 60%, trace aortic regurgitation, mild mitral regurgitation, trace tricuspid regurgitation. Mild concentric left ventricular hypertrophy. 01/19 Patient is seen and examined on the observation unit. Orthostatic vital signs are negative. Blood pressure readings are high anywhere from 154-194 systolic. Patient is not consistently taking his home medications which would be contributing to his uncontrolled hypertension. Heart rate is running in the 90s and low 100s, pulse ox 97% on 2 L nasal cannula. Echocardiogram reveals EF of 55 to 60%. Physical examination: Gen: This is 70-year-old male in no acute distress VS: reviewed HEENT: Head is atraumatic, normocephalic. Pupils equal, round. Sclerae is anicteric. NECK: Supple. No JVD. LUNGS: Clear to auscultation. No wheezes or rhonchi. No intercostal retractions. HEART: Regular rate and rhythm. Systolic murmur. ABDOMEN: Soft No tenderness. EXTREMITIES: No pedal edema. No calf tenderness. NEUROLOGICAL: Patient is awake, alert and oriented x3. Assessment: Near syncopal episode of unclear etiology, rule out cardiac etiology Nonspecific changes on EKG present on previous 1 done in 2020 Hypertension COPD Hyperlipidemia History of dysautonomia with neurocardiogenic syncope following cervical spine surgery Plan: Continue patient's home cardiac medications Discontinue IV fluids Patient is cleared for discharge home and will follow-up in the office with Dr. Chad Joseph for stress testing. Nurse practitioner note has been reviewed, I agree with documented findings and plan of care. Patient was seen and examined. Objective - Vital Signs Vital signs: Vital Signs Temp 98.2 F 01/19/25 07:00 Pulse 104 H 01/19/25 08:45 Resp 18 01/19/25 03:00 BP 154/80 01/19/25 07:00 Pulse Ox 97 01/19/25 08:32 FiO2 Intake & Output 01/18/25 01/19/25 01/19/25 18:59 06:59 18:59 Intake Total 480 Output Total 220 1200 Balance 260 -1200 Weight 90.718 kg Intake: Oral 480 Output: Urine 220 1200 - Labs CBC & Chem 7: 01/19/25 05:38 01/18/25 03:14
[2025-01-19 11:05] LABS: BUN/Creat Ratio 15.07 Ratio (12.00-20.00); Blood Urea Nitrogen 21.1 mg/dL (9.0-27.0); Calcium 8.9 mg/dL (8.7-10.3); Carbon Dioxide 27.8 mmol/L (21.6-31.8); Chloride 104 mmol/L (96-109); Glucose 174 mg/dL (70-110); Magnesium 1.6 mg/dL (1.5-2.4); Potassium 4.6 mmol/L (3.5-5.5); Sodium 139 mmol/L (135-145)
[2025-01-19] MEDS: carvediloL 6.25 MG TAB PO STA (12:09)
[2025-01-19] MEDS: carvediloL 12.5 MG TAB PO SCH (17:24)
[2025-01-20] MEDS: IPRATROPIUM-ALBUTEROL 3 ML NEB INHALATION PRN (00:15)
[2025-01-20] MEDS: LOSARTAN 50 MG TAB PO SCH (09:31)
--- NOTE | 2025-01-20 09:45 | P.PN ---
Subjective This is a 70-year-old previously seen in the office many years ago by Dr. 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 He also has a past medical history of COPD, hyperlipidemia, tobacco use. Patient states that he had just gotten out of bed and he started to black out. He also had sweats and was not able to walk. In general he has not been feeling well for at least a week. He denies chest pain, chest pressure. He denies palpitations. No nausea or vomiting. He complains of generalized weakness. No fever or chills. He does complain of lightheadedness. He states he feels somewhat better now and is not sure why he has improved. Blood pressure 132/86, heart rate 79, pulse ox 93% on 2 L nasal cannula. -EKG: Sinus rhythm with ST-T wave changes that were present on previous EKG -Chest x-ray: No acute process. COPD. -CTA of the chest ruled out PE -Laboratory studies: Troponin negative x 3 hemoglobin 12.7, creatinine 1.02, proBNP 203. Magnesium 1.6, potassium 4.0. -Home cardiac medications: Have not been confirmed at the time of this dictation. -[facility] calcified coronary arteries. Mild disease in the left circumflex on the right coronary artery and medical management was recommended as well as smoking cessation. -Echocardiogram performed in 2020 at [facility] revealed EF of 55 to 60%, trace aortic regurgitation, mild mitral regurgitation, trace tricuspid regurgitation. Mild concentric left ventricular hypertrophy. 01/19 Patient is seen and examined on the observation unit. Orthostatic vital signs are negative. Blood pressure readings are high anywhere from 154-194 systolic. Patient is not consistently taking his home medications which would be contributing to his uncontrolled hypertension. Heart rate is running in the 90s and low 100s, pulse ox 97% on 2 L nasal cannula. Echocardiogram reveals EF of 55 to 60%. 01/20 Patient seen and examined resting in bed eating breakfast. He indicates he is overall feeling much better however he did feel a little lightheaded when he got up out of bed this morning. Vital signs reviewed, orthostatics are negative however hypertensive. He denies chest pain, shortness of breath or palpitations. Telemetry tracings unremarkable for arrhythmia or bradycardia. Physical examination: Gen: This is 70-year-old male in no acute distress VS: reviewed HEENT: Head is atraumatic, normocephalic. Pupils equal, round. Sclerae is anicteric. NECK: Supple. No JVD. LUNGS: Clear to auscultation. No wheezes or rhonchi. No intercostal retractions. HEART: Regular rate and rhythm. Systolic murmur. ABDOMEN: Soft No tenderness. EXTREMITIES: No pedal edema. No calf tenderness. NEUROLOGICAL: Patient is awake, alert and oriented x3. Assessment: Near syncopal episode of unclear etiology, rule out cardiac etiology Nonspecific changes on EKG present on previous 1 done in 2020 Hypertension COPD Hyperlipidemia History of dysautonomia with neurocardiogenic syncope following cervical spine surgery Plan: Increase activity, up in chair more than in bed. Ensure drinking at least 64 ounces of water per day. Increase losartan to 100 mg daily. Overall stable from a cardiac perspective. Follow-up upon discharge with Dr. Joseph. Nurse practitioner note has been reviewed, I agree with documented findings and plan of care. Patient was seen and examined. Objective - Vital Signs Vital signs: Vital Signs Temp 98.2 F 01/20/25 07:44 Pulse 84 01/20/25 09:40 Resp 16 01/20/25 09:40 BP 173/96 01/20/25 07:44 Pulse Ox 95 01/20/25 09:27 FiO2 Intake & Output 01/19/25 01/20/25 01/20/25 18:59 06:59 18:59 Intake Total 236 Output Total 652 1500 Balance -416 -1500 Intake: Oral 236 Output: Urine 652 1500 - Labs CBC & Chem 7: 01/19/25 05:38 01/19/25 05:38 Labs: Abnormal Lab Results - Last 24 Hours (Table) 01/19/25 01/19/25 Range/Units 05:38 05:38 WBC 11.37 H (4.50-10.00) X 10*3/uL RBC 4.16 L (4.40-5.60) X 10*6/uL Hgb 12.7 L (13.0-17.0) g/dL Hct 39.3 L (39.6-50.0) % Immature Gran # 0.10 H (0.00-0.04) X 10*3/uL Neutrophils # 10.21 H (1.80-7.70) X 10*3/uL Lymphocytes # 0.65 L (0.90-5.00) X 10*3/uL Eosinophils # 0 L (0.04-0.35) X 10*3/uL Est GFR (CKD-EPI) 53 L (>=60) Glucose 174 H (70-110) mg/dL
--- NOTE | 2025-01-20 10:07 | P.DS ---
Providers Date of admission: 01/17/25 21:54 Expected date of discharge: 01/20/25 Attending physician: Isaac Khan MD Consults: 01/17/25 21:52 Consult Physician Routine Consulting Provider: Echo Ozuna Consult Reason/Comments: syncope Do you want consulting provider notified?: Yes Primary care physician: [facility] Course: Hospital Course: Patient is a 70-year-old male with CAD, hypertension, COPD (2L on home oxygen), nicotine dependence here for evaluation of lightheadedness. Pt was HDS, but +orthostatics by criteria of 20pt increase of HR upon standing. Pt received IVF, and was monitored on telemetry. Echo was normal. CXR was negative for infiltrate, effusion, consolidation, PTX. CT angio was negative for PE. EKG showed sinus rhythm with no ischemic changes. Cardiology was consulted. Phosphorus low, electrolytes replaced. Pt was felt to be in COPD exacerbation and was started on steroids, nebulizers, discharged on symbicort, albuterol inh PRN, and prednisone 40mg daily. He will f/u with PCP, pulmonology, cardiology in 1-2 weeks after discharge. Smoking cessation counseling provided. Gen: In NAD, non-toxic HEENT: normocephalic, atraumatic, hearing acuity is intant, mucous membranes moist CVS: perfusing all extremities well, no pitting edema, Respiratory: symmetric chest expansion, no accessory muscle use, GI: soft, NTTP, ND, : no suprapubic tenderness, no CVA tenderness MSK/Derm: no rashes, cyanosis Neuro: CN II-XII intact, no motor weakness, Psych: cooperative, euthymic mood, judgment and insight is intact Discharge diagnosis Orthostatic hypotension COPD exacerbation Hypophosphatemia Hypertensive urgency Episode of hematochezia CAD Hyperlipidemia I saw and evaluated the patient during the brooks and critical portions of this encounter, and discussed the case in detail with the resident author of this note, I agree with the Assessment and Plan, and my changes, if any, are highligh mauro in blue. 35 minutes was spent on this discharge Patient Condition at Discharge: Good Plan - Discharge Summary Discharge Rx Participant: Yes New Discharge Prescriptions: New predniSONE [Deltasone] 40 mg PO DAILY 3 Days #6 tab Budesonide-Formot 160-4.5 Mcg [Symbicort 160-4.5 Mcg Inhaler] 2 puff INHA LATION RT-BID #1 each carvediloL [Coreg*] 12.5 mg PO BID-W/MEALS #60 tab Acetaminophen Tab [Tylenol] 650 mg PO Q4HR PRN tab PRN Reason: Mild Pain Or Fever > 100.5 Albuterol Inhaler [Ventolin Hfa Inhaler] 1 - 2 puff INHALATION Q4H PRN #1 each PRN Reason: Dyspnea Continue Ipratropium-Albuterol Nebulize [Duoneb 0.5 mg-3 mg/3 ml Soln] 3 ml INHALATION RT-Q2H PRN 30 Days #1 box PRN Reason: Shortness Of Breath Or Wheezing amLODIPine [Norvasc] 10 mg PO DAILY 30 Days #30 tab Atorvastatin [Lipitor] 40 mg PO HS Tamsulosin [Flomax] 0.4 mg PO DAILY Losartan [Cozaar] 50 mg PO DAILY Albuterol Nebulized [Ventolin Nebulized] 3 ml INHALATION RT-TID PRN PRN Reason: Shortness Of Breath Discontinued carvediloL [Coreg] 6.25 mg PO BID-W/MEALS 30 Days #60 tab Discharge Medication List Ipratropium-Albuterol Nebulize [Duoneb 0.5 mg-3 mg/3 ml Soln] 3 ml INHALATION RT-Q2H PRN 30 Days #1 box 03/06/21 [Rx] amLODIPine [Norvasc] 10 mg PO DAILY 30 Days #30 tab 03/06/21 [Rx] Albuterol Nebulized [Ventolin Nebulized] 3 ml INHALATION RT-TID PRN 01/18/25 [History] Atorvastatin [Lipitor] 40 mg PO HS 01/18/25 [History] Losartan [Cozaar] 50 mg PO DAILY 01/18/25 [History] Tamsulosin [Flomax] 0.4 mg PO DAILY 01/18/25 [History] Acetaminophen Tab [Tylenol] 650 mg PO Q4HR PRN tab 01/19/25 [Rx] Albuterol Inhaler [Ventolin Hfa Inhaler] 1 - 2 puff INHALATION Q4H PRN #1 each 01/19/25 [Rx] Budesonide-Formot 160-4.5 Mcg [Symbicort 160-4.5 Mcg Inhaler] 2 puff INHALATION RT-BID #1 each 01/19/25 [Rx] carvediloL [Coreg*] 12.5 mg PO BID-W/MEALS #60 tab 01/19/25 [Rx] predniSONE [Deltasone] 40 mg PO DAILY 3 Days #6 tab 01/19/25 [Rx] Follow up Appointment(s)/Referral(s): Gary Ramirez MD [STAFF PHYSICIAN] - 1 Week Shayne Butts MD [Primary Care Provider] - 1-2 days Stefano Joseph MD [STAFF PHYSICIAN] - 2 Weeks (Office will call patient with appointment ) Discharge Disposition: HOME SELF-CARE
[2025-01-20] MEDS: carvediloL 12.5 MG TAB PO SCH (17:58)
--- NOTE | 2025-01-21 09:58 | P.PN ---
Subjective Progress Note Date: 01/21/25 Hospital Course: Patient is a 70-year-old male with CAD, hypertension, COPD (2L on home oxygen), nicotine dependence here for evaluation of lightheadedness. Patient reported that today around 6pm, he experienced lightheadedness as he was standing from the dinner table. He also had associated diaphoresis, fatigue and felt cold and clammy. He tried to walk but could not bear his own weight and had to be supported to lie down which led them to seek care. He denied chest pain, LOC, abdominal pain, extremity swelling, calf pain, focal weakness, shortness of breath, palpitations, fever, chills, nausea, vomiting, recent hospitalization. For the past week, he has been having multiple episodes of lightheadedness that is worse with walking with associated shortness of breath and fatigue. He also reported having a recent witnessed fall in October 2024 due to the same type of lightheadedness. He also reported an episode of bloody stool last week but has not had any recurrence. Subjective: Patient seen and examined at bedside. Patient continues to have significant dyspnea on exertion, dizziness upon standing, and is very unsteady. His blood pressures remain elevated. Vitals: Signs Reviewed Physical Exam: General: nontoxic, no distress, appears at stated age Derm: warm, dry, intact Head: atraumatic, normocephalic, symmetric Eyes: EOMI, anicteric sclera Mouth: no lip lesion, mucus membranes moist Cardiovascular: S1 S2 reg, no murmur, rubs, or gallops Lungs: Slight expiratory wheezing across lung smith bilaterally, no rhonchi, no rales, no accessory muscle use Abdominal: soft, non-tender to palpataion, no appreciable organomegaly Extremities: no gross muscle atrophy, no edema, no contractures Neuro: Alert, Oriented, CNII-XII grossly intact, gait normal Psych: well appearing, appropriate affect Assessment/Plan: 70-year-old male with CAD, hypertension, COPD on 2 L home oxy gen and nicotine dependence here for evaluation of lightheadedness. The patient is admitted with an anticipated greater than 2 midnight stay for evaluation of presyncope. Active: #. Presyncope, likely vasovagal versus orthostatic versus carotid stenosis -EKG independently interpreted showed sinus rhythm with a rate of 71, left axis deviation, inverted T waves in leads I, 2, aVF, 3, V4-V6. -Cardiac monitoring -Heart healthy diet -Check Orthostatics -Troponin <0.012 on admission. Trend troponin -EKG as needed -CT angio of the chest no acute PE , no masses -Echo results reviewed, normal ejection fraction, no wall motion abnormality -Continue with aspirin 81 mg daily -Cardiology consulted, appreciate recommendations, neurology consult was recommended by them and CT angio of the head and neck was ordered #. COPD exacerbation - DuoNeb inhaler 4 times daily and as needed - Solu-Medrol 125 mg IV given in the ED - Solu-Medrol 40 mg every 8 hours to be continued, patient still significantly wheezy - Symbicort 160-4.5 mcg twice daily - Supplemental oxygen as needed. Goal O2 sat 88 to 92% #. Hypophosphatemia Phosphorus 1.7 Neutra-Phos packet p.o. 3 times daily Continue to monitor morning CMP #. Hypertensive urgency - Blood pressure 194/110 on admission - Given labetalol 20 mg IVP once in the ED - Clonidine 0.1mg PO prn for SBP >180 DBP>110 - Amlodipine 10mg, losartan 100 mg daily - Uptitrate to Coreg 25 mg twice daily - Continue to monitor blood pressure #. questionable episode of Hematochezia -Patient claims that he had an episode of bloody stool. -Advise colonoscopy on out patient basis -Last colonoscopy more than 10 years ago -Hemoglobin 12.7 this morning Chronic Conditions: #. CAD #. Hyperlipidemia - Continue home aspirin and 40 mg Lipitor F: Oral intake N: Heart healthy diet A: Ambulate as needed DVT ppx: Lovenox 40 mg subcu daily GI ppx: Protonix 40 mg p.o. daily CODE STATUS: Full Discussed with: Patient Anticipated discharge place: Home I saw and evaluated the patient during the brooks and critical portions of this encounter, and discussed the case in detail with the resident author of this note, I agree with the Assessment and Plan, and my changes, if any, are highlighted in blue. Objective - Vital Signs Vital signs: Vital Signs Temp 98.1 F 01/21/25 07:05 Pulse 94 01/21/25 08:30 Resp 16 01/21/25 07:05 BP 166/89 01/21/25 08:30 Pulse Ox 94 L 01/21/25 08:30 FiO2 94 01/21/25 07:05 Intake & Output 01/20/25 01/21/25 01/21/25 18:59 06:59 18:59 Intake Total 118 360 Output Total 585 725 120 Balance -748 -025 240 Intake: Oral 118 360 Output: Urine 585 725 120 Other: Voiding Method Urinal Urinal Urinal # Voids 2 - Labs CBC & Chem 7: 01/19/25 05:38 01/19/25 05:38
--- NOTE | 2025-01-21 10:45 | P.PN ---
Subjective HISTORY OF PRESENT ILLNESS: This is a 70-year-old previously seen in the office many years ago by Dr. 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 He also has a past medical history of COPD, hyperlipidemia, tobacco use. Patient states that he had just gotten out of bed and he started to black out. He also had sweats and was not able to walk. In general he has not been feeling well for at least a week. He denies chest pain, chest pressure. He denies palpitations. No nausea or vomiting. He complains of generalized weakness. No fever or chills. He does complain of lighthead edness. He states he feels somewhat better now and is not sure why he has improved. Blood pressure 132/86, heart rate 79, pulse ox 93% on 2 L nasal cannula. -EKG: Sinus rhythm with ST-T wave changes that were present on previous EKG -Chest x-ray: No acute process. COPD. -CTA of the chest ruled out PE -Laboratory studies: Troponin negative x 3 hemoglobin 12.7, creatinine 1.02, proBNP 203. Magnesium 1.6, potassium 4.0. -Home cardiac medications: Have not been confirmed at the time of this dic tation. -Cardiac catheterization in 2020 performed by [facility] revealed calcified coronary arteries. Mild disease in the left circumflex on the right coronary artery and medical management was recommended as well as smoking cessation. -Echocardiogram performed in 2020 at [facility] revealed EF of 55 to 60%, trace aortic regurgitation, mild mitral regurgitation, trace tricuspid regurgitation. Mild concentric left ventricular hypertrophy. 01/19 Patient is seen and examined on the observation unit. Orthostatic vital signs are negative. Blood pressure readings are high anywhere from 154-194 systolic. Patient is not consistently taking his home medications which would be contributing to his uncontrolled hypertension. Heart rate is running in the 90s and low 100s, pulse ox 97% on 2 L nasal cannula. Echocardiogram reveals EF of 55 to 60%. 01/20 Patient seen and examined resting in bed eating breakfast. He indicates he is overall feeling much better however he did feel a little lightheaded when he got up out of bed this morning. Vital signs reviewed, orthostatics are negative however hypertensive. He denies chest pain, shortness of breath or palpitations. Telemetry tracings unremarkable for arrhythmia or bradycardia. 01/21/2025 Patient examined this morning at bedside. Patient currently denies any chest pain or pressure. He denies shortness of breath. Patient does report some d izziness upon standing. He reports issues with balance and coordination. Orthostatic blood pressures obtained this morning are negative. PHYSICAL EXAM: VITAL SIGNS: Reviewed. GENERAL: Well-developed in no acute distress. NECK: Supple. No JVD or thyromegaly LUNGS: Respirations even and unlabored. Lungs essentially clear to auscultation bilaterally. HEART: Regular rate and rhythm. S1 and S2 heard. EXTREMITIES: Normal range of motion. No clubbing or cyanosis. Peripheral pulses intact. No lower extremity edema ASSESSMENT: Near syncopal episode of unclear etiology, does not appear to be cardiac in etiology Hypertension COPD Hyperlipidemia History of dysautonomia with neurocardiogenic syncope following cervical spine surgery PLAN: Consult neurology for evaluation as patient reports dizziness and issues with balance and coordination. Possible vestibular dysfunction. Obtain CT of the brain without contrast and CT angio head and neck Continue to monitor orthostatics Increase activity as tolerated. Patient to be up to the chair multiple times a day Further recommendations pending patient course Nurse practitioner note has been reviewed by physician. Signing provider agrees with the documented findings, assessment, and plan of care documented by MOLD BUILDER as a scribe. Objective - Vital Signs Vital signs: Vital Signs Temp 98.1 F 01/21/25 07:05 Pulse 94 01/21/25 08:30 Resp 16 01/21/25 07:05 BP 166/89 01/21/25 08:30 Pulse Ox 94 L 01/21/25 08:30 FiO2 94 01/21/25 07:05 Intake & Output 01/20/25 01/21/25 01/21/25 18:59 06:59 18:59 Intake Total 118 360 Output Total 585 725 120 Balance -467 -725 240 Intake: Oral 118 360 Output: Urine 585 725 120 Other: Voiding Method Urinal Urinal Urinal # Voids 2 - Labs CBC & Chem 7: 01/19/25 05:38 01/19/25 05:38
--- NOTE | 2025-01-21 11:19 | CT ---
EXAMINATION TYPE: CT angio head neck CT DLP: 1482.7 mGycm, Automated exposure control for dose reduction was used. DATE OF EXAM: 01/21/2025 11:07 AM COMPARISON: MR brain 01/29/2013, CT brain C-spine 11/29/2012. CLINICAL INDICATION:Male, 70 years old with history of dizziness; PHH, dizziness TECHNIQUE: Axially acquired helical CT angiogram of the head and neck was obtained with contrast util izing 75 cc of [id number]-[id number] administered intravenously. Noncontrast imaging of the brain was performed before the administration of contrast. Axial images are supplemented with 3D reconstructions which we re post-processed at an independent workstation. NASCET criteria used. MIP imaging performed on a separate workstation and submitted for review. FINDINGS: CTA HEAD: No evidence of acute intracranial hemorrhage, mass effect, or midline shift. The ventricles, sulci, a nd cisterns are unremarkable. Patchy periventricular hypodensities white matter changes. The visualized portions of the internal carotid arteries, middle cerebral arteries, anterior cerebral arteries, and posterior cerebral arteries are patent. The basilar and vertebral arteries are patent. CTA NECK: Right Carotid System: The common carotid artery and external carotid artery are patent. Minimal calcified plaque involving the common carotid artery. Moderate calcified and noncalcified plaque at the carotid bifurcation exte nding into the internal carotid artery. No significant stenosis of the proximal internal carotid doreen ry. Moderate calcification involving the cavernous portion of the internal carotid artery. Left Carotid System: The common carotid artery and external carotid artery are patent. Minimal calcified plaque involving the common carotid artery. Moderate calcified and noncalcified plaque at the carotid bifurcation exte nding into the internal carotid artery. No significant stenosis of the proximal internal carotid doreen ry. Moderate calcification involving the cavernous portion of the internal carotid artery. Vertebral arteries are patent without evidence hemodynamically significant stenosis. The vertebral ar teries are codominant. There is a three-vessel aortic arch. The origins of the great vessels are patent. No evidence of hemo dynamically significant stenosis. Advanced centrilobular and paraseptal emphysematous changes. Advanced multilevel degenerative disc di sease of the cervical spine. IMPRESSION: 1. No evidence of dissection of the cervical internal carotid arteries or vertebral arteries or any e vidence of significant stenosis at the carotid bifurcations. There is moderate stenosis involving the cavernous portions of the bilateral internal carotid arteries secondary to calcified plaque. 2. No evidence of intracranial aneurysm. [facility], , 01/21/2025 11:16 AM
--- NOTE | 2025-01-21 15:25 | P.CNNES ---
History of Present Illness Consult date: 01/21/25 Requesting physician: Jenny Mix Reason for Consult: dizziness History of Present Illness: This is a 70 year-old gentleman presents to the emergency department on 01/17/2025 for shortness of breath. Neurology is consulted for dizziness. According to the patient he feels unsteady and off-balance when he gets up but denies any dizziness. Denies any focal weakness. Denies any speech difficulty. Upon talking the patient he is very short of breath just sitting in the chair and he stated he just came back from CT angiography. Patient denies any history of stroke. He does have a history of shortness of breath from COPD but it seems worse. Denies being on any antiplatelet. He states that his disequilibrium has been going on for the last 3 weeks. Denies any nausea any vomiting any speech difficulty any visual disturbance any ringing in the ears. Some of the workup during this hospital visit consisted of: I reviewed the lab workup. CT angiography of the head and neck is reported as no evidence of dissection of cervical internal carotid artery or vertebral artery or any evidence of significant stenosis at the carotid bifurcation. There is moderate stenosis involving the cavernous portion of bilateral internal carotid artery secondary to calcified plaque. No evidence of intracranial aneurysm. Review of Systems As per HPI. Past Medical History Past Medical History: Coronary Artery Disease (CAD), COPD, Hypertension Additional Past Medical History / Comment(s): diverticulitis History of Any Multi-Drug Resistant Organisms: None Reported Past Surgical History: Bowel Resection Additional Past Surgical History / Comment(s): kidney stone removal, neck surgery, sinus surgery Past Anesthesia/Blood Transfusion Reactions: No Reported Reaction Past Psychological History: No Psychological Hx Reported Smoking Status: Current every day smoker Past Alcohol Use History: None Reported Past Drug Use History: None Reported - Past Family History Family Family Medical History: No Reported History Medications and Allergies Home Medications Medication Instructions Recorded Confirmed Type Ipratropium-Albuterol Nebulize 3 ml INHALATION RT-Q2H PRN 30 Days 03/06/21 01/18/25 Rx [Duoneb 0.5 mg-3 mg/3 ml Soln] #1 box amLODIPine [Norvasc] 10 mg PO DAILY 30 Days #30 tab 03/06/21 01/18/25 Rx Albuterol Nebulized [Ventolin 3 ml INHALATION RT-TID PRN 01/18/25 01/18/25 History Nebulized] Atorvastatin [Lipitor] 40 mg PO HS 01/18/25 01/18/25 History Losartan [Cozaar] 50 mg PO DAILY 01/18/25 01/18/25 History Tamsulosin [Flomax] 0.4 mg PO DAILY 01/18/25 01/18/25 History Acetaminophen Tab [Tylenol] 650 mg PO Q4HR PRN tab 01/19/25 Rx Albuterol Inhaler [Ventolin Hfa 1 - 2 puff INHALATION Q4H PRN #1 01/19/25 Rx Inhaler] each Budesonide-Formot 160-4.5 Mcg 2 puff INHALATION RT-BID #1 each 01/19/25 Rx [Symbicort 160-4.5 Mcg Inhaler] carvediloL [Coreg*] 12.5 mg PO BID-W/MEALS #60 tab 01/19/25 Rx predniSONE [Deltasone] 40 mg PO DAILY 3 Days #6 tab 01/19/25 Rx Allergies Allergy/AdvReac Type Severity Reaction Status Date / Time codeine AdvReac anxiety Verified 01/18/25 09:39 Physical Examination - Vital Signs Vital Signs: Vital Signs Temp Pulse Pulse Pulse Pulse Pulse Resp 01/21/25 14:23 98.0 F 80 16 01/21/25 08:30 94 01/21/25 07:05 98.1 F 95 91 78 16 01/21/25 01:04 98.3 F 80 17 01/20/25 20:35 104 H 01/20/25 20:23 106 H 01/20/25 20:00 98.2 F 109 H 116 H 96 18 BP BP BP BP Pulse Ox FiO2 01/21/25 14:23 135/86 96 01/21/25 08:30 166/89 94 L 01/21/25 07:05 163/95 150/94 159/90 94 01/21/25 01:04 145/80 95 01/20/25 20:35 01/20/25 20:23 01/20/25 20:00 174/100 143/92 193/103 90 L Intake and Output 01/21/25 01/21/25 01/21/25 06:59 14:59 22:59 Intake Total 600 Output Total 425 120 Balance -425 480 Intake: Oral 600 Output: Urine 425 120 Other: Voiding Method Urinal Urinal # Voids 100 GENERAL: The patient is sitting in a chair and seems very short of breath. LUNG: Seems very short of breath without exertion. NEUROLOGICAL: Higher mental function: The patient is awake, alert, oriented to self, place and time. Patient is following commands. No aphasia and no neglect. Cranial nerves: The pupils are round, equal and reactive to light and accommodation. Visual smith are full to confrontation throughout. Extraocular movement is intact no nystagmus is noted. Facial sensation is normal to touch throughout. The facial strength is normal throughout. Hearing is normal bilaterally to hand rub. Tongue is midline and moved [id number] without any difficulty. Has mild hoarse voice due to shortness of breath. Shoulder shrug is normal bilaterally. Motor: Gait taking few steps was normal. The strength is 5 over 5 throughout. Normal tone and bulk. Cerebellum: Normal finger to nose bilaterally. Sensation: Sensation is normal to touch throughout. Reflexes (right/left): 2+ throughout Plantars are downgoing bilaterally. Results - Laboratory Findings CBC and BMP: 01/19/25 05:38 01/19/25 05:38 Abnormal Lab Findings: Abnormal Labs 01/17/25 01/17/25 01/17/25 20:59 20:59 20:59 WBC RBC Hgb Hct MPV Immature Gran # Neutrophils # Lymphocytes # Monocytes # Eosinophils # APTT 19.1 L D-Dimer 0.94 H Carbon Dioxide 33 H Est GFR (CKD-EPI) Glucose 124 H Phosphorus AST Total Protein Albumin 01/18/25 01/18/25 01/19/25 03:14 03:14 05:38 WBC 11.37 H RBC 4.12 L 4.16 L Hgb 12.7 L 12.7 L Hct 39.0 L 39.3 L MPV 9.4 L Immature Gran # 0.10 H Neutrophils # 10.21 H Lymphocytes # 0.45 L 0.65 L Monocytes # 0.13 L Eosinophils # 0.01 L 0 L APTT D-Dimer Carbon Dioxide Est GFR (CKD-EPI) Glucose 171 H Phosphorus 1.7 L AST 14 L Total Protein 6.2 L Albumin 3.4 L 01/19/25 05:38 WBC RBC Hgb Hct MPV Immature Gran # Neutrophils # Lymphocytes # Monocytes # Eosinophils # APTT D-Dimer Carbon Dioxide Est GFR (CKD-EPI) 53 L Glucose 174 H Phosphorus AST Total Protein Albumin Assessment and Plan Assessment: Patient is a 70-year-old gentleman who presents because shortness of breath. Neurologist consulted for this. Patient feels his balance has been off for the last 3 weeks. On examination patient was very short of breath even without exertion. Disequilibrium with some dizziness is likely due to his severe shortness of miki ath. I doubt acute ischemic stroke. Shortness of breath Hypertension Underlying history of COPD and is on home oxygen Tobacco use Plan: I ordered a CT of the head. If it is negative we will proceed with MRI but it seems the MRI is backed up and I was notified that there is no availability until 2 days from now. Cardiology is on board Patient was counseled on tobacco cessation. Will defer the rest of the medical management to primary other specialist Thank you for the consultation. Time with Patient: Greater than 30
--- NOTE | 2025-01-22 07:15 | CT ---
EXAMINATION TYPE: CT brain wo con DATE OF EXAM: 01/22/2025 COMPARISON: CT brain from 1 day earlier CLINICAL INDICATION: Male, 70 years old with history of unsteady gait with dizziness, DIZZINESS UNSTE JONI GAIT TECHNIQUE: CT scan of the head is performed without contrast. CT DLP: 1229.6 mGycm. Automated Exposure Control for Dose Reduction was Utilized. FINDINGS: There is no acute intracranial hemorrhage or midline shift identified. There is moderate diffuse ventricular and sulcal prominence redemonstrated. There is moderate low-attenuation in the p eriventricular white matter redemonstrated. The calvarium is intact. The Paranasal sinuses are clear . The globes are intact bilaterally IMPRESSION: No acute intracranial hemorrhage or midline shift. No significant change from most recen t prior CT. [facility], , 01/22/2025 7:12 AM
--- NOTE | 2025-01-22 10:18 | P.PN ---
Subjective HISTORY OF PRESENT ILLNESS: This is a 70-year-old previously seen in the office many years ago by Dr. 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 He also has a past medical history of COPD, hyperlipidemia, tobacco use. Patient states that he had just gotten out of bed and he started to black out. He also had sweats and was not able to walk. In general he has not been feeling well for at least a week. He denies chest pain, chest pressure. He denies palpitations. No nausea or vomiting. He complains of generalized weakness. No fever or chills. He does complain of lighthead edness. He states he feels somewhat better now and is not sure why he has improved. Blood pressure 132/86, heart rate 79, pulse ox 93% on 2 L nasal cannula. -EKG: Sinus rhythm with ST-T wave changes that were present on previous EKG -Chest x-ray: No acute process. COPD. -CTA of the chest ruled out PE -Laboratory studies: Troponin negative x 3 hemoglobin 12.7, creatinine 1.02, proBNP 203. Magnesium 1.6, potassium 4.0. -Home cardiac medications: Have not been confirmed at the time of this dic tation. -Cardiac catheterization in 2020 performed by [facility] revealed calcified coronary arteries. Mild disease in the left circumflex on the right coronary artery and medical management was recommended as well as smoking cessation. -Echocardiogram performed in 2020 at [facility] revealed EF of 55 to 60%, trace aortic regurgitation, mild mitral regurgitation, trace tricuspid regurgitation. Mild concentric left ventricular hypertrophy. 01/19 Patient is seen and examined on the observation unit. Orthostatic vital signs are negative. Blood pressure readings are high anywhere from 154-194 systolic. Patient is not consistently taking his home medications which would be contributing to his uncontrolled hypertension. Heart rate is running in the 90s and low 100s, pulse ox 97% on 2 L nasal cannula. Echocardiogram reveals EF of 55 to 60%. 01/20 Patient seen and examined resting in bed eating breakfast. He indicates he is overall feeling much better however he did feel a little lightheaded when he got up out of bed this morning. Vital signs reviewed, orthostatics are negative however hypertensive. He denies chest pain, shortness of breath or palpitations. Telemetry tracings unremarkable for arrhythmia or bradycardia. 01/21/2025 Patient examined this morning at bedside. Patient currently denies any chest pain or pressure. He denies shortness of breath. Patient does report some d izziness upon standing. He reports issues with balance and coordination. Orthostatic blood pressures obtained this morning are negative. 01/22/2025 Patient examined this morning at bedside. Brain CT and CTA unremarkable. Patient states that his dizziness has improved. He was able to walk in the hallway yesterday. Vital signs are stable. Telemetry reveals sinus mechanism. PHYSICAL EXAM: VITAL SIGNS: Reviewed. GENERAL: Well-developed in no acute distress. NECK: Supple. No JVD or thyromegaly LUNGS: Respirations even and unlabored. Lungs essentially clear to auscultation bilaterally. HEART: Regular rate and rhythm. S1 and S2 heard. EXTREMITIES: Normal range of motion. No clubbing or cyanosis. Peripheral pulses intact. No lower extremity edema ASSESSMENT: Near syncopal episode of unclear etiology, does not appear to be cardiac in etiology Hypertension COPD Hyperlipidemia History of dysautonomia with neurocardiogenic syncope following cervical spine surgery PLAN: Continue current cardiac medications Continue telemetry monitoring Continue to monitor orthostatics Increase activity as tolerated. Patient to be up to the chair multiple times a day Consult pulmonary for evaluation Patient is currently stable from a cardiac perspective Further recommendations pending patient course Nurse practitioner note has been reviewed by physician. Signing provider agrees with the documented findings, assessment, and plan of care documented by WOODS MANAGER as a scribe. Objective - Vital Signs Vital signs: Vital Signs Temp 98.8 F 01/22/25 07:00 Pulse 85 01/22/25 07:00 Resp 15 01/22/25 07:00 BP 132/77 01/22/25 07:00 Pulse Ox 96 01/22/25 07:00 FiO2 94 01/21/25 07:05 Intake & Output 01/21/25 01/22/25 01/22/25 18:59 06:59 18:59 Intake Total 600 Output Total 320 400 Balance 280 -400 Intake: Oral 600 Output: Urine 320 400 Other: Voiding Method Urinal # Voids 1 1 # Bowel Movements 1 1 - Labs CBC & Chem 7: 01/19/25 05:38 01/19/25 05:38
[2025-01-22 12:04] LABS: Phosphorus 4.1 mg/dL (2.5-4.5)
--- NOTE | 2025-01-22 12:39 | P.CNPUL ---
History of Present Illness Consult date: 01/22/25 Requesting physician: Jennyfer Nugent Reason for consult: COPD Chief complaint: Dizziness, shortness of breath History of present illness: This is a 70-year-old male patient with a known history of coronary artery disease, chronic obstructive pulmonary disease, chronic tobacco dependence, hypertension, diverticulitis with previous bowel resection who presented here back on 01/17/2025 with complaints of shortness of breath cough and congestion. He is also having issues with dizziness and near syncope. Chest x-ray showed evidence of COPD but no acute pulmonary process. CT angiogram ruled out pulmonary embolism. Mild centrilobular emphysema noted. Echocardiogram revealed normal left ventricular systolic function. No significant valvular abnormalities. CT angiogram of the head and neck revealed no evidence of dissection or cervical internal carotid arteries or vertebral arteries or any evidence of significant stenosis at the carotid bifurcations. CT scan of the brain revealed no acute intracranial hemorrhage or midline shift. We are consulted today for ongoing shortness of breath. He is currently resting in bed. Awake and alert in no acute distress. Maintaining good O2 saturations in the mid 90s on room air. Has been afebrile. Hemodynamically stable. No orthostatic hypotension. He is continued on DuoNeb inhalations, Symbicort, Solu-Medrol. He states he is breathing easier today compared to yesterday. Occasional episodes of dizziness while up ambulating in the room. Some dyspnea with minimal exertion. Review of Systems REVIEW OF SYSTEMS: CONSTITUTIONAL: Denies any recent significant weight loss or weight gain. EYES: Denies change in vision. EARS, NOSE, MOUTH, THROAT: Denies headaches, denies sore throat. CARDIOVASCULAR: Positive for near syncopal episodes. RESPIRATORY: Positive for shortness of breath, cough, congestion no hemoptysis. GASTROINTESTINAL: Denies change in appetite, denies abdominal pain GENITOURINARY: Denies hematuria, denies infections. MUSKULOSKELETAL: Denies pain, denies swelling. INTEGUMENTARY: Denies rash, denies eczema. NEUROLOGICAL: Denies recent memory loss, no recent seizure activity. PSYCHIATRIC: Denies anxiety, denies depression. HEMATOLOGIC/LYMPHATIC: Denies anemia, denies enlarged lymph nodes. Past Medical History Past Medical History: Coronary Artery Disease (CAD), COPD, Hypertension Additional Past Medical History / Comment(s): diverticulitis History of Any Multi-Drug Resistant Organisms: None Reported Past Surgical History: Bowel Resection Additional Past Surgical History / Comment(s): kidney stone removal, neck surgery, sinus surgery Past Anesthesia/Blood Transfusion Reactions: No Reported Reaction Past Psychological History: No Psychological Hx Reported Smoking Status: Current every day smoker Past Alcohol Use History: None Reported Past Drug Use History: None Reported - Past Family History Family Family Medical History: No Reported History Medications and Allergies Home Medications Medication Instructions Recorded Confirmed Type Ipratropium-Albuterol Nebulize 3 ml INHALATION RT-Q2H PRN 30 Days 03/06/21 01/18/25 Rx [Duoneb 0.5 mg-3 mg/3 ml Soln] #1 box amLODIPine [Norvasc] 10 mg PO DAILY 30 Days #30 tab 03/06/21 01/18/25 Rx Albuterol Nebulized [Ventolin 3 ml INHALATION RT-TID PRN 01/18/25 01/18/25 History Nebulized] Atorvastatin [Lipitor] 40 mg PO HS 01/18/25 01/18/25 History Losartan [Cozaar] 50 mg PO DAILY 01/18/25 01/18/25 History Tamsulosin [Flomax] 0.4 mg PO DAILY 01/18/25 01/18/25 History Acetaminophen Tab [Tylenol] 650 mg PO Q4HR PRN tab 01/19/25 Rx Albuterol Inhaler [Ventolin Hfa 1 - 2 puff INHALATION Q4H PRN #1 01/19/25 Rx Inhaler] each Budesonide-Formot 160-4.5 Mcg 2 puff INHALATION RT-BID #1 each 01/19/25 Rx [Symbicort 160-4.5 Mcg Inhaler] carvediloL [Coreg*] 12.5 mg PO BID-W/MEALS #60 tab 01/19/25 Rx predniSONE [Deltasone] 40 mg PO DAILY 3 Days #6 tab 01/19/25 Rx Allergies Allergy/AdvReac Type Severity Reaction Status Date / Time codeine AdvReac anxiety Verified 01/18/25 09:39 Physical Exam Vitals: Vital Signs Temp Pulse Pulse Pulse Pulse Pulse Resp 01/22/25 11:53 93 01/22/25 11:44 88 01/22/25 11:10 99 96 89 01/22/25 07:00 98.8 F 85 15 01/22/25 06:29 91 01/22/25 06:18 87 01/22/25 01:39 98.2 F 89 18 01/21/25 19:43 98.0 F 107 H 105 H 92 01/21/25 18:55 100 01/21/25 18:41 100 01/21/25 15:37 101 H 18 01/21/25 15:27 103 H 18 01/21/25 14:23 98.0 F 80 16 BP BP BP BP Pulse Ox 01/22/25 11:53 01/22/25 11:44 01/22/25 11:10 144/84 126/79 144/85 01/22/25 07:00 132/77 96 01/22/25 06:29 01/22/25 06:18 96 01/22/25 01:39 150/78 93 L 01/21/25 19:43 158/88 138/82 161/91 90 L 01/21/25 18:55 01/21/25 18:41 01/21/25 15:37 01/21/25 15:27 01/21/25 14:23 135/86 96 Intake and Output 01/21/25 01/22/25 01/22/25 22:59 06:59 14:59 Output Total 200 400 Balance -200 -400 Output: Urine 200 400 Other: # Voids 1 # Bowel Movements 1 GENERAL EXAM: Alert, active, pleasant 70-year-old gentleman, on room air oxygen, comfortable in no apparent distress. HEAD: Normocephalic. EYES: Normal reaction of pupils, equal size. NOSE: Clear with pink turbinates. THROAT: No erythema or exudates. NECK: No masses, no JVD. CHEST: No chest wall deformity. LUNGS: Equal air entry with faint end expiratory wheeze. Diminished. CVS: S1 and S2 normal with no audible murmur, regular rhythm. ABDOMEN: No hepatosplenomegaly, normal bowel sounds, no guarding or rigidity. SPINE: No scoliosis or deformity SKIN: No rashes CENTRAL NERVOUS SYSTEM: No focal deficits, tone is normal in all 4 extremities. EXTREMITIES: There is no peripheral edema. No clubbing, no cyanosis. Peripheral pulses are intact. Results - Laboratory Findings CBC and BMP: 01/19/25 05:38 01/19/25 05:38 PT/INR, D-dimer PT 10.7 sec (10.0-12.5) 01/17/25 20:59 INR 1.0 (<1.2) 01/17/25 20:59 D-Dimer 0.94 mg/L FEU (<0.60) H 01/17/25 20:59 Abnormal lab findings: Abnormal Labs 01/17/25 01/17/25 01/17/25 20:59 20:59 20:59 WBC RBC Hgb Hct MPV Immature Gran # Neutrophils # Lymphocytes # Monocytes # Eosinophils # APTT 19.1 L D-Dimer 0.94 H Carbon Dioxide 33 H Est GFR (CKD-EPI) Glucose 124 H Phosphorus AST Total Protein Albumin 01/18/25 01/18/25 01/19/25 03:14 03:14 05:38 WBC 11.37 H RBC 4.12 L 4.16 L Hgb 12.7 L 12.7 L Hct 39.0 L 39.3 L MPV 9.4 L Immature Gran # 0.10 H Neutrophils # 10.21 H Lymphocytes # 0.45 L 0.65 L Monocytes # 0.13 L Eosinophils # 0.01 L 0 L APTT D-Dimer Carbon Dioxide Est GFR (CKD-EPI) Glucose 171 H Phosphorus 1.7 L AST 14 L Total Protein 6.2 L Albumin 3.4 L 01/19/25 05:38 WBC RBC Hgb Hct MPV Immature Gran # Neutrophils # Lymphocytes # Monocytes # Eosinophils # APTT D-Dimer Carbon Dioxide Est GFR (CKD-EPI) 53 L Glucose 174 H Phosphorus AST Total Protein Albumin - Diagnostic Findings Chest x-ray: image reviewed CT scan - chest: image reviewed Assessment and Plan Assessment: Acute on chronic hypoxic respiratory failure secondary to an acute exacerbation of chronic obstructive pulmonary disease Near syncopal episodes possibly related to hypoxemia. Acute coronary syndrome ruled out. No orthostatic hypotension History of oxygen dependent chronic obstructive pulmonary disease Chronic tobacco dependence of 54 years History of diverticulitis with previous bowel resection Hypertension Plan: The patient was seen and evaluated All imaging, labs and medications reviewed Continue DuoNeb inhalations, Symbicort, Solu-Medrol To be transitioned to a prednisone taper Lovenox for DVT prophylaxis Home once cleared by cardiology/neurology Continue his home pulmonary medications, oxygen Educated regarding complete smoking cessation Follow-up with Dr. Ramirez in our office in one week I have personally seen and examined the patient, performed the documentation and the assessment and plan as written. Number of minutes spent on the visit: 20 Dictation was produced using [employer] dictation software. Please excuse any gramm atical, word or spelling errors. Time with Patient: Greater than 30
--- NOTE | 2025-01-22 16:28 | P.PN ---
Subjective Progress Note Date: 01/22/25 I am following-up with patient and he feels about the same. Objective - Vital Signs Vital signs: Vital Signs Temp 97.9 F 01/22/25 15:00 Pulse 86 01/22/25 16:03 Resp 16 01/22/25 15:00 BP 130/70 01/22/25 15:00 Pulse Ox 97 01/22/25 15:00 FiO2 94 01/21/25 07:05 Intake & Output 01/21/25 01/22/25 01/22/25 18:59 06:59 18:59 Intake Total 600 Output Total 320 400 950 Balance 280 -400 -950 Intake: Oral 600 Output: Urine 320 400 950 Other: Voiding Method Urinal # Voids 1 1 # Bowel Movements 1 1 1 - Exam Lying in bed and does not appear in acute distress. Lung: Appears mildly short of breath and is better today compared to yesterday. Neuro: Patient is awake alert oriented to self place and time. Is following simple commands. No aphasia Visual smith are full to conversation. Extraocular movement is intact no nystagmus. No facial weakness. No dysarthria Motor the strength is 5 out of 5 throughout. Cerebellar is end of action tremor bilaterally with [id number]. Some of the workup during this hospital visit consisted of: I reviewed the lab workup. CT angiography of the head and neck is reported as no evidence of dissection of cervical internal carotid artery or vertebral artery or any evidence of signific ant stenosis at the carotid bifurcation. There is moderate stenosis involving the cavernous portion of bilateral internal carotid artery secondary to calcified plaque. No evidence of intracranial aneurysm. CT of the head is reported as no acute intracranial hemorrhage or midline shift. No significant change from most recent prior CT. - Labs CBC & Chem 7: 01/19/25 05:38 01/19/25 05:38 Labs: Abnormal Lab Results - Last 24 Hours (Table) 01/22/25 Range/Units 11:25 TSH 0.392 L (0.465-4.680) mIU/L Assessment and Plan Assessment: Patient is a 70-year-old gentleman who presents because shortness of breath. Neurologist consulted for this. Patient feels his balance has been off for the last 3 weeks. On examination patient was very short of breath even without exertion. Disequilibrium with some dizziness is likely due to his severe shortness of breath. I doubt acute ischemic stroke. CT of the head negative for any acute ischemia. Shortness of breath Hypertension Underlying history of COPD and is on home oxygen Tobacco use Plan: I agree with cardiology of continuing checking orthostatic vitals Patient continues to be dizzy and unknown source then we will proceed with MRI of the brain. Patient has abnormal thyroid and will defer the management to the primary team. Cardiology is on board Patient was counseled on tobacco cessation. Will defer the rest of the medical management to primary other specialist Time with Patient: Less than 30
--- NOTE | 2025-01-22 17:38 | P.PN ---
Subjective Hospital Course: Patient is a 70-year-old male with CAD, hypertension, COPD (2L on home oxygen), nicotine dependence here for evaluation of lightheadedness. Patient reported that today around 6pm, he experienced lightheadedness as he was standing from the dinner table. He also had associated diaphoresis, fatigue and felt cold and clammy. He tried to walk but could not bear his own weight and had to be supported to lie down which led them to seek care. He denied chest pain, LOC, abdominal pain, extremity swelling, calf pain, focal weakness, shortness of breath, palpitations, fever, chills, nausea, vomiting, recent hospitalization. For the past week, he has been having multiple episodes of lightheadedness that is worse with walking with associated shortness of breath and fatigue. He also reported having a recent witnessed fall in October 2024 due to the same type of lightheadedness. He also reported an episode of bloody stool last week but has not had any recurrence. Subjective: Patient seen and examined at bedside. Patient continues to have significant dyspnea on exertion, dizziness upon standing, and is very unsteady. His blood pressures remain elevated. Vitals: Signs Reviewed Physical Exam: General: nontoxic, no distress, appears at stated age Derm: warm, dry, intact Head: atraumatic, normocephalic, symmetric Eyes: EOMI, anicteric sclera Mouth: no lip lesion, mucus membranes moist Cardiovascular: S1 S2 reg, no murmur, rubs, or gallops Lungs: Slight expiratory wheezing across lung smith bilaterally, no rhonchi, no rales, no accessory muscle use Abdominal: soft, non-tender to palpataion, no appreciable organomegaly Extremities: no gross muscle atrophy, no edema, no contractures Neuro: Alert, Oriented, CNII-XII grossly intact, gait normal Psych: well appearing, appropriate affect Imaging: CT angio of head and neck showed no evidence of dissection of the cervical internal carotid arteries or vertebral arteries or any evidence of significant stenosis at the carotid bifurcations. There is moderate stenosis involving the cavernous portions of the bilateral internal carotid arteries secondary to calcified plaque. No evidence of intracranial aneurysm. Brain CT showed no acute intracranial hemorrhage or midline shift. No significant change from most recent prior CT. Assessment/Plan: 70-year-old male with CAD, hypertension, COPD on 2 L home oxygen and nicotine dependence here for evaluation of lightheadedness. The patient is admitted with an anticipated greater than 2 midnight stay for evaluation of presyncope. Active: #. Presyncope, likely related to orthostatics -EKG independently interpreted showed sinus rhythm with a rate of 71, left axis deviation, inverted T waves in leads I, 2, aVF, 3, V4-V6. -New cardiac monitoring -Repeat orthostatics -Check a.m. serum cortisol level -Check TSH and B12 -EKG as needed -Continue with aspirin 81 mg daily -CT angio of head and neck showed no evidence of dissection of the cervical internal carotid arteries or vertebral arteries or any evidence of significant stenosis at the carotid bifurcations. There is moderate stenosis involving the cavernous portions of the bilateral internal carotid arteries secondary to calcified plaque. No evidence of intracranial aneurysm. -Brain CT showed no acute intracranial hemorrhage or midline shift. No significant change from most recent prior CT. #. COPD exacerbation - DuoNeb inhaler 4 times daily and as needed - Solu-Medrol 125 mg IV given in the ED -Have discontinued Solu-Medrol 40 mg every 8 hours, start patient on prednisone 40 mg oral daily - Symbicort 160-4.5 mcg twice daily - Supplemental oxygen as needed. Goal O2 sat 88 to 92% -Obtain morning CBC and BMP #. Hypophosphatemia Phosphorus 1.7 Neutra-Phos packet p.o. 3 times daily Check phosphorus level #. Hypertensive urgency, resolved Blood pressure 130/70 Continue with amlodipine 10 mg daily and losartan 100 mg daily Continue Coreg 25 mg twice daily #. questionable episode of Hematochezia -Patient claims that he had an episode of bloody stool. -Advise colonoscopy on out patient basis -Last colonoscopy more than 10 years ago -Hemoglobin 12.7 this morning Chronic Conditions: #. CAD #. Hyperlipidemia - Continue home aspirin and 40 mg Lipitor F: Oral intake N: Heart healthy diet A: Ambulate as needed DVT ppx: Lovenox 40 mg subcu daily GI ppx: Protonix 40 mg p.o. daily CODE STATUS: Full Discussed with: Patient Anticipated discharge place: Home I have seen and evaluated the patient today. Discussed with the resident and agree with the residents finding and plan as documented in the resident's note. Changes highlighted in blue font. Objective - Vital Signs Vital signs: Vital Signs Temp 98.8 F 01/22/25 07:00 Pulse 85 01/22/25 07:00 Resp 15 01/22/25 07:00 BP 132/77 01/22/25 07:00 Pulse Ox 96 01/22/25 07:00 FiO2 94 01/21/25 07:05 Intake & Output 01/21/25 01/22/25 01/22/25 18:59 06:59 18:59 Intake Total 600 Output Total 320 400 Balance 280 -400 Intake: Oral 600 Output: Urine 320 400 Other: Voiding Method Urinal # Voids 1 1 # Bowel Movements 1 1 - Labs CBC & Chem 7: 01/19/25 05:38 01/19/25 05:38
[2025-01-23 08:34] VITALS: BMI 29.5
[2025-01-23] MEDS: predniSONE 20 MG TAB PO SCH (09:15)
--- NOTE | 2025-01-23 10:42 | P.PN ---
Subjective HISTORY OF PRESENT ILLNESS: This is a 70-year-old previously seen in the office many years ago by Dr. 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 He also has a past medical history of COPD, hyperlipidemia, tobacco use. Patient states that he had just gotten out of bed and he started to black out. He also had sweats and was not able to walk. In general he has not been feeling well for at least a week. He denies chest pain, chest pressure. He denies palpitations. No nausea or vomiting. He complains of generalized weakness. No fever or chills. He does complain of lighthead edness. He states he feels somewhat better now and is not sure why he has improved. Blood pressure 132/86, heart rate 79, pulse ox 93% on 2 L nasal cannula. -EKG: Sinus rhythm with ST-T wave changes that were present on previous EKG -Chest x-ray: No acute process. COPD. -CTA of the chest ruled out PE -Laboratory studies: Troponin negative x 3 hemoglobin 12.7, creatinine 1.02, proBNP 203. Magnesium 1.6, potassium 4.0. -Home cardiac medications: Have not been confirmed at the time of this dic tation. -Cardiac catheterization in 2020 performed by [facility] revealed calcified coronary arteries. Mild disease in the left circumflex on the right coronary artery and medical management was recommended as well as smoking cessation. -Echocardiogram performed in 2020 at [facility] revealed EF of 55 to 60%, trace aortic regurgitation, mild mitral regurgitation, trace tricuspid regurgitation. Mild concentric left ventricular hypertrophy. 01/19 Patient is seen and examined on the observation unit. Orthostatic vital signs are negative. Blood pressure readings are high anywhere from 154-194 systolic. Patient is not consistently taking his home medications which would be contributing to his uncontrolled hypertension. Heart rate is running in the 90s and low 100s, pulse ox 97% on 2 L nasal cannula. Echocardiogram reveals EF of 55 to 60%. 01/20 Patient seen and examined resting in bed eating breakfast. He indicates he is overall feeling much better however he did feel a little lightheaded when he got up out of bed this morning. Vital signs reviewed, orthostatics are negative however hypertensive. He denies chest pain, shortness of breath or palpitations. Telemetry tracings unremarkable for arrhythmia or bradycardia. 01/21/2025 Patient examined this morning at bedside. Patient currently denies any chest pain or pressure. He denies shortness of breath. Patient does report some d izziness upon standing. He reports issues with balance and coordination. Orthostatic blood pressures obtained this morning are negative. 01/22/2025 Patient examined this morning at bedside. Brain CT and CTA unremarkable. Patient states that his dizziness has improved. He was able to walk in the hallway yesterday. Vital signs are stable. Telemetry reveals sinus mechanism. 01/23/2025 Patient examined this morning at bedside. Patient currently denies chest pain or pressure. He denies shortness of breath. Vital signs are stable. PHYSICAL EXAM: VITAL SIGNS: Reviewed. GENERAL: Well-developed in no acute distress. NECK: Supple. No JVD or thyromegaly LUNGS: Respirations even and unlabored. Lungs essentially clear to auscultation bilaterally. HEART: Regular rate and rhythm. S1 and S2 heard. EXTREMITIES: Normal range of motion. No clubbing or cyanosis. Peripheral pulses intact. No lower extremity edema ASSESSMENT: Near syncopal episode of unclear etiology, does not appear to be cardiac in etiology Hypertension COPD Hyperlipidemia History of dysautonomia with neurocardiogenic syncope following cervical spine surgery PLAN: Continue current cardiac medications Continue telemetry monitoring Increase activity as tolerated. Patient to be up to the chair multiple times a day Patient is stable for discharge from a cardiac standpoint Will follow on an as needed basis. Please call with questions or concerns. Nurse practitioner note has been reviewed by physician. Signing provider agrees with the documented findings, assessment, and plan of care documented by DIRECTOR HOME as a scribe. Objective - Vital Signs Vital signs: Vital Signs Temp 97.7 F 01/23/25 07:10 Pulse 80 01/23/25 08:21 Resp 16 01/23/25 07:10 BP 154/85 01/23/25 07:10 Pulse Ox 96 01/23/25 08:08 FiO2 94 01/21/25 07:05 Intake & Output 01/22/25 01/23/25 01/23/25 18:59 06:59 18:59 Intake Total 360 Output Total 950 600 Balance -950 -600 360 Weight 90.718 kg Intake: Oral 360 Output: Urine 950 600 Other: # Voids 1 # Bowel Movements 1 - Labs CBC & Chem 7: 01/19/25 05:38 01/19/25 05:38 Labs: Abnormal Lab Results - Last 24 Hours (Table) 01/22/25 01/23/25 Range/Units 11:25 05:32 TSH 0.392 L (0.465-4.680) mIU/L Cortisol 2.5 L (3.1-22.4) UG/DL
--- NOTE | 2025-01-23 12:54 | P.PN ---
Subjective Progress Note Date: 01/23/25 This is a 70-year-old male patient with a known history of coronary artery disease, chronic obstructive pulmonary disease, chronic tobacco dependence, hypertension, diverticulitis with previous bowel resection who presented here back on 01/17/2025 with complaints of shortness of breath cough and congestion. He is also having issues with dizziness and near syncope. Chest x-ray showed evidence of COPD but no acute pulmonary process. CT angiogram ruled out pulmonary embolism. Mild centrilobular emphysema noted. Echocardiogram revealed normal left ventricular systolic function. No significant valvular abnormalities. CT angiogram of the head and neck revealed no evidence of dissection or cervical internal carotid arteries or vertebral arteries or any evidence of significant stenosis at the carotid bifurcations. CT scan of the brain revealed no acute intracranial hemorrhage or midline shift. We are consulted today for ongoing shortness of breath. He is currently resting in bed. Awake and alert in no acute distress. Maintaining good O2 saturations in the mid 90s on room air. Has been afebrile. Hemodynamically stable. No orthostatic hypotension. He is continued on DuoNeb inhalations, Symbicort, Solu-Medrol. He states he is breathing easier today compared to yesterday. Occasional episodes of dizziness while up ambulating in the room. Some dyspnea with minimal exertion. The patient is seen today January 23, 2025 in follow-up on the regular medical floor. He is currently sitting up in bed. Awake and alert in no acute distress. Maintaining O2 saturations in the 90s on 2 L/min per nasal cannula. He is afebrile. Hemodynamically stable. He is continued on DuoNeb inhalations, Symbicort, prednisone taper. Lovenox for DVT prophylaxis. Cortisol level 2.5 Objective - Vital Signs Vital signs: Vital Signs Temp 97.7 F 01/23/25 07:10 Pulse 78 01/23/25 12:01 Resp 16 01/23/25 09:15 BP 154/85 01/23/25 07:10 Pulse Ox 96 01/23/25 08:08 FiO2 94 01/21/25 07:05 Intake & Output 01/22/25 01/23/25 01/23/25 18:59 06:59 18:59 Intake Total 360 Output Total 950 600 Balance -950 -600 360 Weight 90.718 kg Intake: Oral 360 Output: Urine 950 600 Other: Voiding Method Urinal # Voids 1 # Bowel Movements 1 - Exam GENERAL EXAM: Alert, active, 70-year-old male patient, on 2 L nasal cannula, comfortable in no apparent distress. HEAD: Normocephalic. EYES: Normal reaction of pupils, equal size. NOSE: Clear with pink turbinates. THROAT: No erythema or exudates. NECK: No masses, no JVD. CHEST: No chest wall deformity. LUNGS: Equal air entry with no crackles, wheeze, rhonchi or dullness. CVS: S1 and S2 normal with no audible murmur, regular rhythm. ABDOMEN: No hepatosplenomegaly, normal bowel sounds, no guarding or rigidity. SPINE: No scoliosis or deformity SKIN: No rashes CENTRAL NERVOUS SYSTEM: No focal deficits, tone is normal in all 4 extremities. EXTREMITIES: There is no peripheral edema. No clubbing, no cyanosis. Peripheral pulses are intact. - Labs CBC & Chem 7: 01/19/25 05:38 01/19/25 05:38 Labs: Abnormal Lab Results - Last 24 Hours (Table) 01/23/25 Range/Units 05:32 Cortisol 2.5 L (3.1-22.4) UG/DL Assessment and Plan Assessment: Acute on chronic hypoxic respiratory failure secondary to an acute exacerbation of chronic obstructive pulmonary disease Near syncopal episodes possibly related to hypoxemia. Acute coronary syndrome ruled out. No orthostatic hypotension History of oxygen dependent chronic obstructive pulmonary disease Chronic tobacco dependence of 54 years History of diverticulitis with previous bowel resection Hypertension Plan: The patient was seen and evaluated Labs and medications reviewed Cleared for discharge Continue DuoNeb inhalations, Symbicort, Solu-Medrol Complete a a prednisone taper Educated regarding complete smoking cessation Follow-up with Dr. Ramirez in our office in one week This patient was seen independently by the pulmonary nurse practitioner addressing pulmonary issues I have personally seen and examined the patient, performed the documentation and the assessment and plan as written. Number of minutes spent on the visit: 24 Dictation was produced using [employer] dictation software. Please excuse any grammatical, word or spelling errors.
--- NOTE | 2025-01-23 13:53 | P.PN ---
Subjective Hospital Course: Patient is a 70-year-old male with CAD, hypertension, COPD (2L on home oxygen), nicotine dependence here for evaluation of lightheadedness. Patient reported that today around 6pm, he experienced lightheadedness as he was standing from the dinner table. He also had associated diaphoresis, fatigue and felt cold and clammy. He tried to walk but could not bear his own weight and had to be supported to lie down which led them to seek care. He denied chest pain, LOC, abdominal pain, extremity swelling, calf pain, focal weakness, shortness of breath, palpitations, fever, chills, nausea, vomiting, recent hospitalization. For the past week, he has been having multiple episodes of lightheadedness that is worse with walking with associated shortness of breath and fatigue. He also reported having a recent witnessed fall in October 2024 due to the same type of lightheadedness. He also reported an episode of bloody stool last week but has not had any recurrence. Subjective: Patient seen and examined at bedside. Patient continues to have significant dyspnea on exertion, dizziness upon standing, and is very unsteady. His blood pressures remain elevated. Vitals: Signs Reviewed Physical Exam: General: nontoxic, no distress, appears at stated age Derm: warm, dry, intact Head: atraumatic, normocephalic, symmetric Eyes: EOMI, anicteric sclera Mouth: no lip lesion, mucus membranes moist Cardiovascular: S1 S2 reg, no murmur, rubs, or gallops Lungs: Slight expiratory wheezing across lung smith bilaterally, no rhonchi, no rales, no accessory muscle use Abdominal: soft, non-tender to palpataion, no appreciable organomegaly Extremities: no gross muscle atrophy, no edema, no contractures Neuro: Alert, Oriented, CNII-XII grossly intact, gait normal Psych: well appearing, appropriate affect Imaging: CT angio of head and neck showed no evidence of dissection of the cervical internal carotid arteries or vertebral arteries or any evidence of significant stenosis at the carotid bifurcations. There is moderate stenosis involving the cavernous portions of the bilateral internal carotid arteries secondary to calcified plaque. No evidence of intracranial aneurysm. Brain CT showed no acute intracranial hemorrhage or midline shift. No significant change from most recent prior CT. Assessment/Plan: 70-year-old male with CAD, hypertension, COPD on 2 L home oxygen and nicotine dependence here for evaluation of lightheadedness. The patient is admitted with an anticipated greater than 2 midnight stay for evaluation of presyncope. Active: #. Adrenal insufficiency #. Orthostatic hypotension -EKG independently interpreted showed sinus rhythm with a rate of 71, left axis deviation, inverted T waves in leads I, 2, aVF, 3, V4-V6. -New cardiac monitoring -Negative repeat orthostatics -Serum cortisol of 2.5 -TSH 0.392, B12 434 - Free T4 1.12 -EKG as needed -Continue with aspirin 81 mg daily -CT angio of head and neck showed no evidence of dissection of the cervical internal carotid arteries or vertebral arteries or any evidence of significant stenosis at the carotid bifurcations. There is moderate stenosis involving the cavernous portions of the bilateral internal carotid arteries secondary to calcified plaque. No evidence of intracranial aneurysm. -Brain CT showed no acute intracranial hemorrhage or midline shift. No significant change from most recent prior CT. Start hydrocortisone 10 mg morning and 5 mg evening Check ACTH level Discontinue prednisone #. COPD exacerbation - DuoNeb inhaler 4 times daily and as needed - Solu-Medrol 125 mg IV given in the ED -Will discontinue prednisone 40 mg oral daily - Symbicort 160-4.5 mcg twice daily - Supplemental oxygen as needed. Goal O2 sat 88 to 92% -Obtain morning CBC and BMP #. Hypophosphatemia, resolved Repeat phosphorus of 4.1 Neutra-Phos packet p.o. 3 times daily #. Hypertensive urgency, resolved Blood pressure 130/70 Continue with amlodipine 10 mg daily and losartan 100 mg daily Continue Coreg 25 mg twice daily #. questionable episode of Hematochezia -Patient claims that he had an episode of bloody stool. -Advise colonoscopy on out patient basis -Last colonoscopy more than 10 years ago -Hemoglobin 12.7 this morning Chronic Conditions: #. CAD #. Hyperlipidemia - Continue home aspirin and 40 mg Lipitor F: Oral intake N: Heart healthy diet A: Ambulate as needed DVT ppx: Lovenox 40 mg subcu daily GI ppx: Protonix 40 mg p.o. daily CODE STATUS: Full Discussed with: Patient Anticipated discharge place: Subacute rehab I have seen and evaluated the patient today. Discussed with the resident and agree with the residents finding and plan as documented in the resident's note. Changes highlighted in blue font. Objective - Vital Signs Vital signs: Vital Signs Temp 98.0 F 01/23/25 02:00 Pulse 72 01/23/25 07:00 Resp 16 01/23/25 07:00 BP 162/90 01/23/25 07:00 Pulse Ox 93 L 01/23/25 07:00 FiO2 94 01/21/25 07:05 Intake & Output 01/22/25 01/23/25 01/23/25 18:59 06:59 18:59 Output Total 950 600 Balance -950 -600 Output: Urine 950 600 Other: # Voids 1 # Bowel Movements 1 - Labs CBC & Chem 7: 01/19/25 05:38 01/19/25 05:38 Labs: Abnormal Lab Results - Last 24 Hours (Table) 01/22/25 Range/Units 11:25 TSH 0.392 L (0.465-4.680) mIU/L
[2025-01-23] MEDS: HYDROCORTISONE 10 MG TAB PO SCH ×2 (15:19→21:43)
[2025-01-23] MEDS: NICOTINE 21MG/24HR PATCH TRANSDERM SCH (17:51)
[2025-01-24 01:52] VITALS: RESP 16
--- NOTE | 2025-01-24 11:01 | P.PN ---
Subjective Progress Note Date: 01/24/25 This is a 70-year-old male patient with a known history of coronary artery disease, chronic obstructive pulmonary disease, chronic tobacco dependence, hypertension, diverticulitis with previous bowel resection who presented here back on 01/17/2025 with complaints of shortness of breath cough and congestion. He is also having issues with dizziness and near syncope. Chest x-ray showed evidence of COPD but no acute pulmonary process. CT angiogram ruled out pulmonary embolism. Mild centrilobular emphysema noted. Echocardiogram revealed normal left ventricular systolic function. No significant valvular abnormalities. CT angiogram of the head and neck revealed no evidence of dissection or cervical internal carotid arteries or vertebral arteries or any evidence of significant stenosis at the carotid bifurcations. CT scan of the brain revealed no acute intracranial hemorrhage or midline shift. We are consulted today for ongoing shortness of breath. He is currently resting in bed. Awake and alert in no acute distress. Maintaining good O2 saturations in the mid 90s on room air. Has been afebrile. Hemodynamically stable. No orthostatic hypotension. He is continued on DuoNeb inhalations, Symbicort, Solu-Medrol. He states he is breathing easier today compared to yesterday. Occasional episodes of dizziness while up ambulating in the room. Some dyspnea with minimal exertion. The patient is seen today January 23, 2025 in follow-up on the regular medical floor. He is currently sitting up in bed. Awake and alert in no acute distress. Maintaining O2 saturations in the 90s on 2 L/min per nasal cannula. He is afebrile. Hemodynamically stable. He is continued on DuoNeb inhalations, Symbicort, prednisone taper. Lovenox for DVT prophylaxis. Cortisol level 2.5 The patient is seen today January 24, 2025 in follow-up on the regular medical floor. He is awake and alert in no acute distress. Resting comfortably in bed. Denies any worsening shortness of breath, cough or congestion. He is maintaining good O2 saturation in the mid 90s on 2 L/min per nasal cannula. He has been afebrile. Hemodynamically stable. No new labs today. He is continued on DuoNeb inhalations, Symbicort, hydrocortisone. NicoDerm patch in place. Lovenox for DVT prophylaxis. Protonix for GI prophylaxis. Objective - Vital Signs Vital signs: Vital Signs Temp 97.5 F L 05/09/25 07:20 Pulse 80 01/24/25 08:23 Resp 16 01/24/25 07:20 BP 140/83 01/24/25 07:20 Pulse Ox 95 01/24/25 07:20 FiO2 94 01/21/25 07:05 Intake & Output 01/23/25 01/24/25 01/24/25 18:59 06:59 18:59 Intake Total 598 Output Total 720 730 240 Balance -122 -730 -240 Weight 90.718 kg Intake: Oral 598 Output: Urine 720 730 240 Other: Voiding Method Urinal Urinal - Exam GENERAL EXAM: Alert, 70-year-old male patient, on 2 L nasal cannula, comfortable in no apparent distress. HEAD: Normocephalic. EYES: Normal reaction of pupils, equal size. NOSE: Clear with pink turbinates. THROAT: No erythema or exudates. NECK: No masses, no JVD. CHEST: No chest wall deformity. LUNGS: Equal air entry with no crackles, wheeze, rhonchi or dullness. CVS: S1 and S2 normal with no audible murmur, regular rhythm. ABDOMEN: No hepatosplenomegaly, normal bowel sounds, no guarding or rigidity. SPINE: No scoliosis or deformity SKIN: No rashes CENTRAL NERVOUS SYSTEM: No focal deficits, tone is normal in all 4 extremities. EXTREMITIES: There is no peripheral edema. No clubbing, no cyanosis. Peripheral pulses are intact. - Labs CBC & Chem 7: 01/19/25 05:38 01/19/25 05:38 Assessment and Plan Assessment: Acute on chronic hypoxic respiratory failure secondary to an acute exacerbation of chronic obstructive pulmonary disease Near syncopal episodes possibly related to hypoxemia. Acute coronary syndrome ruled out. No orthostatic hypotension History of oxygen dependent chronic obstructive pulmonary disease Chronic tobacco dependence of 54 years History of diverticulitis with previous bowel resection Hypertension Plan: The patient was seen and evaluated Medications reviewed Continue DuoNeb inhalations, Symbicort, Solu-cortef Educated regarding complete smoking cessation Plan now is for subacute rehabilitation post discharge This patient was seen independently by the pulmonary nurse practitioner addressing pulmonary issues I have personally seen and examined the patient, performed the documentation and the assessment and plan as written. Number of minutes spent on the visit: 23 Dictation was produced using EPIS dictation software. Please excuse any grammatical, word or spelling errors.
--- NOTE | 2025-01-24 14:54 | P.PN ---
Subjective Progress Note Date: 01/24/25 I am following-up with patient and he is accompanied with his sister. He is chronic smoker and it seems he use to smoke as much as 2PPD then cut down to slightly less than 1PPD. Patient is feeling short of breath while at rest. Objective - Vital Signs Vital signs: Vital Signs Temp 97.5 F L 01/24/25 07:20 Pulse 80 01/24/25 12:09 Resp 16 01/24/25 14:44 BP 140/83 01/24/25 07:20 Pulse Ox 95 01/24/25 07:20 FiO2 94 01/21/25 07:05 Intake & Output 01/23/25 01/24/25 01/24/25 18:59 06:59 18:59 Intake Total 598 360 Output Total 720 730 240 Balance -122 -730 120 Weight 90.718 kg Intake: Oral 598 360 Output: Urine 720 730 240 Other: Voiding Method Urinal Urinal Urinal # Voids 1 # Bowel Movements 1 - Exam Lying in bed and does not appear in acute distress. Lung: Appears moderately short of breath Neuro: Patient is awake alert oriented to self place and time. Is following simple commands. No aphasia Visual smith are full to conversation. Extraocular movement is intact no nystagmus. No facial weakness. No dysarthria Motor the strength is 5 out of 5 throughout. Cerebellar is end of action tremor bilaterally with [id number]. Some of the workup during this hospital visit consisted of: I reviewed the lab workup. CT angiography of the head and neck is reported as no evidence of dissection of cervical internal carotid artery or vertebral artery or any evidence of significant stenosis at the carotid bifurcation. There is moderate stenosis involving the cavernous portion of bilateral internal carotid artery secondary to calcified plaque. No evidence of intracranial aneurysm. CT of the head is reported as no acute intracranial hemorrhage or midline shift. No significant change from most recent prior CT. - Labs CBC & Chem 7: 01/19/25 05:38 01/19/25 05:38 Assessment and Plan Assessment: Patient is a 70-year-old gentleman who presents because shortness of breath. Neurologist consulted for this. Patient feels his balance has been off for the last 3 weeks. On examination patient was very short of breath even without exertion. Disequilibrium with some dizziness is likely due to his severe shortness of martínez th/hypoxemia. This does not seems like acute or subacute stroke. CT of the head negative for any acute ischemia. Shortness of breath Hypertension Underlying history of COPD and is on home oxygen Ongoing chronic Tobacco use Plan: NO need for MRI since no focal deficits and this seems more due to hypoxemia/shortness of breath. Patient has abnormal thyroid and will defer the management to the primary team. Cardiology is on board Patient was counseled on tobacco cessation. Will defer the rest of the medical management to primary other specialist There is no further neurological work-up. Will sign off. Please reconsult if needed. Time with Patient: Less than 30
--- NOTE | 2025-01-24 15:00 | P.DS ---
Providers Date of admission: 01/17/25 21:55 Expected date of discharge: 01/24/25 Attending physician: Isaac Khan MD Consults: 01/21/25 08:20 Consult Physician Routine Consulting Provider: Quentin Weber Consult Reason/Comments: dizziness Do you want consulting provider notified?: Yes 01/22/25 08:12 Consult Physician Routine Consulting Provider: Russ Weber Consult Reason/Comments: COPD, SOB Do you want consulting provider notified?: Yes Primary care physician: Shayne Tavarez [facility] Course: Hospital course: Patient is a 70-year-old male with CAD, hypertension, COPD (2L on home oxygen), nicotine dependence here for evaluation of lightheadedness. Patient reported that today around 6pm, he experienced lightheadedness as he was standing from the dinner table. He also had associated diaphoresis, fatigue and felt cold and clammy. He tried to walk but could not bear his own weight and had to be supported to lie down which led them to seek care. He denied chest pain, LOC, abdominal pain, extremity swelling, calf pain, focal weakness, shortness of breath, palpitations, fever, chills, nausea, vomiting, recent hospitalization. For the past week, he has been having multiple episodes of lightheadedness that is worse with walking with associated shortness of breath and fatigue. He also reported having a recent witnessed fall in October 2024 due to the same type of lightheadedness. He also reported an episode of bloody stool last week but has not had any recurrence. Chest x-ray on 01/17/2025 showed no acute cardiopulmonary disease/process and COPD changes. Chest CTA showed no pulmonary embolism and mild centrilobular emphysema. Echocardiogram showed left ventricular ejection fraction of [address] angio of head and neck on 01/21/2025 showed no evidence of dissection of the cervical internal carotid arteries or vertebral arteries or any evidence of significant stenosis at the carotid bifurcations. There is moderate stenosis involving the cavernous portions of the bilateral internal carotid arteries secondary to calcified plaque. No evidence of intracranial aneurysm. Brain CT showed no acute intracranial hemorrhage or midline shift. No significant change from most recent prior CT. patient's lab work were significant for TSH of 0.392, free T41.12, cortisol of 2.5 and ACTH of 4.34. Patient's dizziness and tremor are likely due to underlying adrenal insufficiency. Patient's symptoms improved over the course of hospitalization. Patient is medically stable to be discharged on 01/24/2025. Symbicort inhaler, carvedilol 12.5 mg twice daily, losartan 100 mg daily, Tylenol 650 mg as needed, albuterol inhaler, carvedilol 25 mg twice daily, hydrocortisone 5 mg at bedtime and hydrocortisone 10 mg daily being added to patient's home medications. Carvedilol 6.25 mg twice daily and losartan 50 mg daily have been discontinued. Physical examination GENERAL: This is a 70-year-old in no apparent distress at the time of examination. Pleasant and cooperative. HEENT: Head is atraumatic, normocephalic. Pupils are equal, round, and reactive to light. Sclerae anicteric. Conjunctivae are clear. Mucus membranes of the mouth are moist. Neck is supple. RESPIRATORY: Clear to auscultation. No wheezes, rales, or rhonchi. No use of accessory muscles. Patient maintaining oxygen saturation greater than 92% on 2 L nasal cannula. No chest wall tenderness is noted on palpation or with deep breathing. CARDIOVASCULAR: Regular rate and rhythm. S1 and S2 noted. No systolic or diastolic murmur auscultated. No JVD noted. No S3 or S4 noted. GASTROINTESTINAL: No distention noted. Abdomen soft and round. Normal active bowel sounds auscultated x 4 quadrants. No pain or tenderness noted upon palpation. INTEGUMENTARY: No cyanosis. No jaundice. No rashes noted. No cellulitis noted. EXTREMITIES: 2+ peripheral pulses. No evidence of peripheral edema. No calf tenderness noted. NEUROLOGIC: Cranial nerves II-XII intact. PSYCHIATRIC: Awake, alert, and oriented X 3. Appropriate affect. Intact judgement and insight. DISCHARGE DIAGNOSIS: Adrenal insufficiency Orthostatic hypotension COPD exacerbation Hypophosphatemia resolved Hypertensive urgency resolved Coronary artery disease Hyperlipidemia A total of 38 minutes of time were spent preparing this complex discharge summary. Patient was discharged on 01/24/2025 at 1359. I have seen and evaluated the patient today. Discussed with the resident and agree with the residents finding and plan as documented in the resident's note. Changes highlighted in blue font. Patient Condition at Discharge: Good Plan - Discharge Summary Discharge Rx Participant: Yes New Discharge Prescriptions: New Budesonide-Formot 160-4.5 Mcg [Symbicort 160-4.5 Mcg Inhaler] 2 puff INHALATION RT-BID #1 each carvediloL [Coreg*] 12.5 mg PO BID-W/MEALS #60 tab Losartan [Cozaar] 100 mg PO DAILY #90 tab Acetaminophen Tab [Tylenol] 650 mg PO Q4HR PRN tab PRN Reason: Mild Pain Or Fever > 100.5 Albuterol Inhaler [Ventolin Hfa Inhaler] 1 - 2 puff INHALATION Q4H PRN #1 each PRN Reason: Dyspnea carvediloL [Coreg*] 25 mg PO BID-W/MEALS #90 tab Hydrocortisone [Cortef] 5 mg PO HS #90 tab Hydrocortisone [Cortef] 10 mg PO DAILY #60 tab Continue Ipratropium-Albuterol Nebulize [Duoneb 0.5 mg-3 mg/3 ml Soln] 3 ml INHALATION RT-Q2H PRN 30 Days #1 box PRN Reason: Shortness Of Breath Or Wheezing amLODIPine [Norvasc] 10 mg PO DAILY 30 Days #30 tab Atorvastatin [Lipitor] 40 mg PO HS Tamsulosin [Flomax] 0.4 mg PO DAILY Albuterol Nebulized [Ventolin Nebulized] 3 ml INHALATION RT-TID PRN PRN Reason: Shortness Of Breath Discontinued carvediloL [Coreg] 6.25 mg PO BID-W/MEALS 30 Days #60 tab Losartan [Cozaar] 50 mg PO DAILY Discharge Medication List Ipratropium-Albuterol Nebulize [Duoneb 0.5 mg-3 mg/3 ml Soln] 3 ml INHALATION RT-Q2H PRN 30 Days #1 box 03/06/21 [Rx] amLODIPine [Norvasc] 10 mg PO DAILY 30 Days #30 tab 03/06/21 [Rx] Albuterol Nebulized [Ventolin Nebulized] 3 ml INHALATION RT-TID PRN 01/18/25 [History] Atorvastatin [Lipitor] 40 mg PO HS 01/18/25 [History] Tamsulosin [Flomax] 0.4 mg PO DAILY 01/18/25 [History] Acetaminophen Tab [Tylenol] 650 mg PO Q4HR PRN tab 01/19/25 [Rx] Albuterol Inhaler [Ventolin Hfa Inhaler] 1 - 2 puff INHALATION Q4H PRN #1 each 01/19/25 [Rx] Budesonide-Formot 160-4.5 Mcg [Symbicort 160-4.5 Mcg Inhaler] 2 puff INHALATION RT-BID #1 each 01/19/25 [Rx] carvediloL [Coreg*] 12.5 mg PO BID-W/MEALS #60 tab 01/19/25 [Rx] Hydrocortisone [Cortef] 5 mg PO HS #90 tab 01/24/25 [Rx] Hydrocortisone [Cortef] 10 mg PO DAILY #60 tab 01/24/25 [Rx] Losartan [Cozaar] 100 mg PO DAILY #90 tab 01/24/25 [Rx] carvediloL [Coreg*] 25 mg PO BID-W/MEALS #90 tab 01/24/25 [Rx] Follow up Appointment(s)/Referral(s): Gary Ramirez MD [STAFF PHYSICIAN] - 1 Week Shayne Butts MD [Primary Care Provider] - 1-2 days [facility]idential [facility] [NON-STAFF] - 1 Week Stefano Joseph MD [STAFF PHYSICIAN] - 2 Weeks (Office will call patient with appointment ) Patient Instructions/Handouts: COPD (Chronic Obstructive Pulmonary Disease) (DC), Secondary Adrenal Insufficiency (DC) Activity/Diet/Wound Care/Special Instructions: Please see your PCP. Discharge/Stand Alone Forms: Darrel DOMINGUEZ Pamphlet, Who Do I Call?, Adult Foster Retirement List, Assisted Living Facilities, Help In The Home Discharge Disposition: HOME WITH HOME HEALTH SERVICES
[2025-01-24 15:30] VITALS: BP 147/82; TEMP 98.2
[2025-01-24 16:24] VITALS: PULSE 80
== END 2025-01-24 18:21 | disposition home health service (06) | DRG 190 ==
LOC: EC 20:18 → 6NMEDSUR 21:54 → OBSVTOIN 21:55 → 6NMEDSUR 01-18 03:30
PROVIDERS: ADMIT Internal Medicine; ATTEND Internal Medicine
DX: J44.1 Chronic obstructive pulmonary disease with (acute) exacerbation (principal); J96.21 Acute and chronic respiratory failure with hypoxia; E27.40 Unspecified adrenocortical insufficiency; E83.39 Other disorders of phosphorus metabolism; J43.2 Centrilobular emphysema; I16.0 Hypertensive urgency; G90.1 Familial dysautonomia [Riley-Day]; I10 Essential (primary) hypertension; Z99.81 Dependence on supplemental oxygen; E78.5 Hyperlipidemia, unspecified; I25.10 Atherosclerotic heart disease of native coronary artery without angina pectoris; F17.210 Nicotine dependence, cigarettes, uncomplicated; Z79.51 Long term (current) use of inhaled steroids; Z79.82 Long term (current) use of aspirin; Z71.6 Tobacco abuse counseling
CPT/HCPCS: 36415; 70450; 70496; 70498; 71045; 71275; 80048; 80053; 82024; 82533; 82607; 83036; 83735; 83880; 84100; 84439; 84443; 84484; 85025; 85379; 85610; 85730; 93005; 93306; 94640; 94760; 96361; 96374; 96375; 99291